=== PATIENT | male | born 1940 | race Caucasian/White ===

== ENCOUNTER → 2017-08-31 09:18 | Outpatient (POV) | payer MEDICARE, SELFPAY ==
[2017-08-31 09:40] VITALS: BP 122/71; PULSE 72; RESP 18; TEMP 36.4; O2SAT 98; BMI 30.4
--- NOTE | 2017-08-31 09:52 | P.CONS_ITS ---
[facility] Pain Management SOAP Note Subjective:: Patient is an extremely pleasant 77-year-old white male who we are treating for pain secondary to degenerative disease of the lumbar spine and lumbar radiculopathy. Patient states his pain is a 1 out of 10 today. He states that his medication decreases his pain 80-90%. Patient is being medically managed on [place] 10 mg 1 tablet 3 times a day. He denies any side effects to his medication. Patient's SILVANO #[id number] reviewed and appropriate. Patient has a UDS pending we will continue to monitor this. ROS General: no recent weight change, no fever, no sleep disturbances Respiratory: no cough, no shortness of air, no recurring pulmonary infections Cardiovascular/Peripheral Vascular: No chest pain, No palpitations, no edema, no shortness of breath. Gastrointestinal: no new onset incontinence, normal bowel movements reported Genitourinary: no new onset incontinence Musculoskeletal: Back pain Psychiatric: normal mood/ affect, Neurological: [denies weakness in extremities], [denies balance issues] Objective:: Physical Exam General: Alert and oriented x3, no acute distress, pleasant and cooperative, [ on room air] Lungs: Resps E/U, Symmetrical chest expansion, Eyes: PERRL Musculoskeletal: Flexion and extension of lumbar spine somewhat guarded secondary to pain, deep tendon reflexes normal, strength in upper and lower extremities [5/5], slightly antalgic gait noted Neurological: speech clear, qa consultant equal, no gross sensory deficits Assessment:: Degenerative disc disease of the lumbar spine with lumbar radiculopathy Plan:: We will refill this patient's [place] 10 mg 1 p.o. 3 times daily and give him 2 prescriptions today. He can follow-up with us in 3 months and we will give him a third month in the interim. Patient's Silvano and urine drug screen both reviewed. Dr. Evasn has reviewed his chart and agrees with this plan of care. Patient has been prescribed a controlled substance after being counseled on the medication, medication safety, and possible side effects. SILVANO report has been obtained and reviewed prior to prescription and found to be appropriate. Opioid contract was reviewed and signed by the patient, and that they have agreed to all of the terms set forth by our compliance program. This note was dictated using voice recognition software may contain errors or omissions
[2017-08-31 12:26] LABS: Amphetamine/Metha Screen,Urine Negative ng/mL (<1000); Barbiturates Screen,Urine Negative ng/mL (<200); Benzodiazepines Screen,Urine Negative ng/mL (200); Cannabinoid Screen,Urine Negative ng/mL (<50); Cocaine Screen,Urine Negative ng/g (<300); Methadone Screen,Urine Negative ng/mL (<300); Opiate Screen,Urine Positive ng/mL (<300); Phencyclidine Screen,Urine Negative ng/mL (<25)
[2017-09-03 20:12] LABS: Codeine Negative (Cutoff=100); Hydrocodone Positive (.); Hydromorphone Positive (.); Morphine Negative (Cutoff=100)
[2017-09-04 18:34] LABS: Opiates Positive (.)
== END ==
PROVIDERS: Family Provider Emergency Medicine; PCP Emergency Medicine; Visit Provider Clinical Nurse Specialist Family Health
DX: M54.16 Radiculopathy, lumbar region (principal)
CPT/HCPCS: 80305; 80361; 80365; 99212; G0480

== ENCOUNTER → 2017-11-08 10:46 | Outpatient (REF) | payer MEDICARE, SELFPAY ==
[2017-11-08 13:26] LABS: Basophils % 0.2 % (0.1-2.0); Eosinophils # 0.1 K/mm3 (0.0-0.4); Hematocrit 39.5 % (42.0-52.0); Hemoglobin 13.3 g/dL (14.1-18.0); Lymphocytes # 0.4 K/mm3 (0.7-4.5); Lymphocytes % 5.1 K/mm3 (10-50); Mean Corpuscular HGB Conc 33.7 g/dL (31.8-35.4); Mean Corpuscular Hemoglobin 29.9 pg (27.0-31.2); Mean Corpuscular Volume 88.7 fl (80-94); Monocytes # 0.5 K/mm3 (0.1-1.0); Neutrophils # 7.2 K/mm3 (1.8-7.8); Neutrophils % 87.6 % (37.0-80.0); Platelet Count 331 K/mm3 (142-424); Red Blood Count 4.45 M/mm3 (4.60-6.20); Red Cell Distribution Width 12.7 % (11.5-17.5); White Blood Count 8.2 K/mm3 (4.8-10.8)
[2017-11-08 13:29] LABS: MANUAL DIFFERENTIAL MANUAL DIFFERENTIAL (MANUAL DIFF)
[2017-11-08 14:29] LABS: Hemoglobin A1C 5.4 % (0.0-7.0)
[2017-11-08 14:31] LABS: Erythrocyte Sedimentation Rate 50 mm/hr (0-20)
[2017-11-08 14:46] LABS: Alanine Aminotransferase 17 U/L (12-78); Albumin Level 3.5 gm/dL (3.4-5.0); Albumin/Globulin Ratio 0.9 (1.1-1.8); Alkaline Phosphatase 125 U/L (46-116); Anion Gap 12.9 mEq/L (5-15); Aspartate Amino Transferase 12 U/L (15-37); Bilirubin,Total 0.5 mg/dL (0.2-1.0); Blood Urea Nitrogen 13 mg/dL (7-18); C-Reactive Protein 7.2 mg/L (0.0-0.9); Calcium 9.5 mg/dL (8.5-10.1); Carbon Dioxide 30 mmol/L (21.0-32.0); Chloride 102 mmol/L (98-107); Chol/HDL Ratio 3.7 (1-3.5); Cholesterol 154 mg/dL (140-200); Creatinine,Serum 0.92 mg/dL (0.70-1.30); Estimated Glomerular Filt Rate 80 ml/min (>60); Free T4 (Free Thyroxine) 1.14 ng/dl (0.76-1.46); GFR (African American) 97 ML/MIN (>60); Globulin 3.7 gm/dl (1.3-3.2); Glucose 123 mg/dL (74-106); HDL Cholesterol 42 mg/dL (27-67); LDL Cholesterol 97 mg/dL (0-130); Potassium 3.9 mmoL/L (3.5-5.1); Sodium 141 mmol/L (136-145); Thyroid Stimulating Hormone 1.09 uIU/ml (0.358-3.740); Total Protein,Serum 7.2 gm/dL (6.4-8.2); Triglycerides 76 mg/dL (30-200); VLDL Cholesterol 15 mg/dL (0-40)
[2017-11-08 15:31] LABS: Eosinophils % 1 % (0-3); Lymphocytes % 6 % (10-50); Monocytes % 5 % (2-9); Neutrophils % 88 % (42-76); Platelet Estimate Normal; RBC Morphology Normal; Total Cells Counted 100
[2017-11-09 15:17] LABS: Vitamin D 25 Hydroxy 18.4 ng/mL (30.0-100.0)
== END ==
LOC: LAB 10:46
PROVIDERS: Visit Provider Nurse Practitioner Family
DX: R53.83 Other fatigue (principal); M10.9 Gout, unspecified; R60.0 Localized edema; Z79.899 Other long term (current) drug therapy
CPT/HCPCS: 80053; 80061; 82652; 83036; 84439; 84443; 85007; 85025; 85651; 86140

== ENCOUNTER → 2017-11-29 09:33 | Outpatient (POV) | payer MEDICARE, SELFPAY ==
[2017-11-29 09:49] VITALS: BP 123/63; PULSE 58; RESP 18; O2SAT 98; BMI 30.4
--- NOTE | 2017-11-29 10:21 | HMH.PAINSOAP ---
[facility] Pain Management SOAP Note Subjective:: Patient is a pleasant 77-year-old white male who presents today for medication refills. Patient is being treated for pain secondary to degenerative disc disease of the lumbar spine and lumbar radiculopathy. Patient states that his pain is a 2 out of 10 today. Patient states that his medication works for him up to 90%. Patient currently on [place] 10 mg 1 tab p.o. 3 times daily. Patient's SILVANO #[id number] reviewed and appropriate. Patient's UDS in the past has been appropriate. Patient denies any side effects to the medication. Patient states most of his pain is in his back and legs. ROS General: no recent weight change, no fever, no sleep disturbances Respiratory: no cough, no shortness of air, no recurring pulmonary infections Cardiovascular/Peripheral Vascular: No chest pain, No palpitations, no edema, no shortness of breath. Gastrointestinal: no incontinence, normal bowel movements reported Genitourinary: no incontinence Musculoskeletal: Back pain Psychiatric: normal mood/ affect Neurological: [denies weakness in extremities], [denies balance issues] Objective:: Physical Exam General: Alert and oriented x3, no acute distress, pleasant and cooperative, [on room air] Lungs: Resps E/U, Symmetrical chest expansion, Eyes: PERRL Musculoskeletal: Flexion and extension of lumbar spine somewhat guarded secondary to pain, deep tendon reflexes normal, strength in upper and lower extremities [5/5], slightly antalgic gait noted Neurological: speech clear, rn chemical dependency equal, no gross sensory deficits Assessment:: Degenerative disc disease of lumbar lumbar radiculopathy Plan:: We will refill the patient's [place] 10 mg 1 p.o. 3 times daily and give him 2 prescriptions today. He can follow-up with us in 3 months. We can give him a third month in the interim. Patient's Silvano and urine drug screen reviewed. Dr. Evans has reviewed this chart and agrees with this plan of care. I will follow-up with him in 3 months. Patient has been prescribed a controlled substance after being counseled on the medication, medication safety, and possible side effects. SILVANO report has been obtained and reviewed prior to prescription and found to be appropriate. Opioid contract was reviewed and signed by the patient, and that they have agreed to all of the terms set forth by our compliance program. This note was dictated using voice recognition software and may contain errors or omissions
--- NOTE | 2017-11-29 10:25 | P.CONS_ITS ---
[facility] Pain Management SOAP Note Subjective:: Patient is a pleasant 77-year-old white male who presents today for medication refills. Patient is being treated for pain secondary to degenerative disc disease of the lumbar spine and lumbar radiculopathy. Patient states that his pain is a 2 out of 10 today. Patient states that his medication works for him up to 90%. Patient currently on [place] 10 mg 1 tab p.o. 3 times daily. Patient' s SILVANO #[id number] reviewed and appropriate. Patient's UDS in the past has been appropriate. Patient denies any side effects to the medication. Patient states most of his pain is in his back and legs. ROS General: no recent weight change, no fever, no sleep disturbances Respiratory: no cough, no shortness of air, no recurring pulmonary infections Cardiovascular/Peripheral Vascular: No chest pain, No palpitations, no edema, no shortness of breath. Gastrointestinal: no incontinence, normal bowel movements reported Genitourinary: no incontinence Musculoskeletal: Back pain Psychiatric: normal mood/ affect Neurological: [denies weakness in extremities], [denies balance issues] Objective:: Physical Exam General: Alert and oriented x3, no acute distress, pleasant and cooperative, [ on room air] Lungs: Resps E/U, Symmetrical chest expansion, Eyes: PERRL Musculoskeletal: Flexion and extension of lumbar spine somewhat guarded secondary to pain, deep tendon reflexes normal, strength in upper and lower extremities [5/5], slightly antalgic gait noted Neurological: speech clear, information clerk equal, no gross sensory deficits Assessment:: Degenerative disc disease of lumbar lumbar radiculopathy Plan:: We will refill the patient's [place] 10 mg 1 p.o. 3 times daily and give him 2 prescriptions today. He can follow-up with us in 3 months. We can give him a third month in the interim. Patient's Silvano and urine drug screen reviewed. Dr. Evans has reviewed this chart and agrees with this plan of care. I will follow-up with him in 3 months. Patient has been prescribed a controlled substance after being counseled on the medication, medication safety, and possible side effects. SILVANO report has been obtained and reviewed prior to prescription and found to be appropriate. Opioid contract was reviewed and signed by the patient, and that they have agreed to all of the terms set forth by our compliance program. This note was dictated using voice recognition software and may contain errors or omissions
== END ==
PROVIDERS: Family Provider Emergency Medicine; PCP Nurse Practitioner Family; Visit Provider Clinical Nurse Specialist Family Health
DX: M54.16 Radiculopathy, lumbar region (principal)
CPT/HCPCS: 99212

== ENCOUNTER → 2018-03-01 11:11 | Outpatient (POV) | payer MEDICARE, SELFPAY ==
[2018-03-01 11:41] VITALS: BP 162/62; PULSE 61; RESP 18; O2SAT 98; BMI 30.4
--- NOTE | 2018-03-01 12:10 | HMH.PAINSOAP ---
[facility] Pain Management SOAP Note Subjective:: Patient is a pleasant 77-year-old white male who presents today for medication refills. Patient is currently being treated for pain secondary to degenerative disc disease of lumbar spine with lumbar radiculopathy. Patient rates his pain a 2 out of 10 today. Patient states that his medication helps him up to 90%. Patient is currently on [place] 10 mg 1 tab p.o. 3 times daily. Patient is not on any arthritis medicine. Patient's SILVANO #[id number] reviewed and appropriate. Patient's drug screen has been appropriate in the past. Patient denies side effects to his medication. ROS General: no recent weight change, no fever, no sleep disturbances Respiratory: no cough, no shortness of air, no recurring pulmonary infections Cardiovascular/Peripheral Vascular: No chest pain, No palpitations, no edema, no shortness of breath. Gastrointestinal: no incontinence, normal bowel movements reported Genitourinary: no incontinence Musculoskeletal: Back pain Psychiatric: normal mood/ affect Neurological: [denies weakness in extremities], [denies balance issues] Objective:: Physical Exam General: Alert and oriented x3, no acute distress, pleasant and cooperative, [on room air] Lungs: Resps E/U, Symmetrical chest expansion, Eyes: PERRL Musculoskeletal: Flexion and extension of lumbar spine somewhat guarded secondary to pain, deep tendon reflexes normal, strength in upper and lower extremities [5/5], slightly antalgic gait noted Neurological: speech clear, pest control service technician equal, no gross sensory deficits Assessment:: degenerative disc disease lumbar spine with lumbar radiculathopy Plan:: We will refill the patient's [place] 10 mg 1 p.o. 3 times daily and give him 2 prescriptions today. We will call in Celebrex 200 mg 1 p.o. daily for the patient. 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 Patient's SILVANO and UDS have been reviewed. Dr. Evans agrees with this plan of care. Patient has been prescribed a controlled substance after being counseled on the medication, medication safety, and possible side effects. SILVANO report has been obtained and reviewed prior to prescription and found to be appropriate. Opioid contract was reviewed and signed by the patient, and that they have agreed to all of the terms set forth by our compliance program. This note was dictated using voice recognition software and may contain errors or omissions
--- NOTE | 2018-03-01 12:17 | P.CONS_ITS ---
[facility] Pain Management SOAP Note Subjective:: Patient is a pleasant 77-year-old white male who presents today for medication refills. Patient is currently being treated for pain secondary to degenerative disc disease of lumbar spine with lumbar radiculopathy. Patient rates his pain a 2 out of 10 today. Patient states that his medication helps him up to 90%. Patient is currently on [place] 10 mg 1 tab p.o. 3 times daily. Patient is not on any arthritis medicine. Patient's SILVANO #[id number] reviewed and appropriate. Patient's drug screen has been appropriate in the past. Patient denies side effects to his medication. ROS General: no recent weight change, no fever, no sleep disturbances Respiratory: no cough, no shortness of air, no recurring pulmonary infections Cardiovascular/Peripheral Vascular: No chest pain, No palpitations, no edema, no shortness of breath. Gastrointestinal: no incontinence, normal bowel movements reported Genitourinary: no incontinence Musculoskeletal: Back pain Psychiatric: normal mood/ affect Neurological: [denies weakness in extremities], [denies balance issues] Objective:: Physical Exam General: Alert and oriented x3, no acute distress, pleasant and cooperative, [on room air] Lungs: Resps E/U, Symmetrical chest expansion, Eyes: PERRL Musculoskeletal: Flexion and extension of lumbar spine somewhat guarded secondary to pain, deep tendon reflexes normal, strength in upper and lower extremities [5/5], slightly antalgic gait noted Neurological: speech clear, streets and buildings decorator equal, no gross sensory deficits Assessment:: degenerative disc disease lumbar spine with lumbar radiculathopy Plan:: We will refill the patient's [place] 10 mg 1 p.o. 3 times daily and give him 2 prescriptions today. We will call in Celebrex 200 mg 1 p.o. daily for the patient. We will follow-up with him in 3 months and he can mushroom picker one prescription in the interim. Patient's SILVANO and UDS have been reviewed. Dr. Evans agrees with this plan of care. Patient has been prescribed a controlled substance after being counseled on the medication, medication safety, and possible side effects. SILVANO report has been obtained and reviewed prior to prescription and found to be appropriate. Opioid contract was reviewed and signed by the patient, and that they have agreed to all of the terms set forth by our compliance program. This note was dictated using voice recognition software and may contain errors or omissions
== END ==
PROVIDERS: Family Provider Emergency Medicine; PCP Nurse Practitioner Family; Visit Provider Clinical Nurse Specialist Family Health
DX: M51.16 Intervertebral disc disorders with radiculopathy, lumbar region (principal)
CPT/HCPCS: 99213

== ENCOUNTER → 2018-05-02 12:43 | Outpatient (CLI) | payer MEDICARE, SELFPAY ==
[2018-05-02 14:37] LABS: Amphetamine/Metha Screen,Urine Negative ng/mL (<1000); Barbiturates Screen,Urine Negative ng/mL (<200); Benzodiazepines Screen,Urine Negative ng/mL (<200); Cannabinoid Screen,Urine Negative ng/mL (<50); Cocaine Screen,Urine Negative ng/mL (<300); Methadone Screen,Urine Negative ng/mL (<300); Opiate Screen,Urine Positive ng/mL (<300); Phencyclidine Screen,Urine Negative ng/mL (<25)
[2018-05-06 18:10] LABS: Codeine Negative (Cutoff=100); Hydrocodone Positive (.); Hydromorphone Positive (.); Morphine Negative (Cutoff=100)
[2018-05-07 12:13] LABS: Opiates Positive (.)
== END ==
PROVIDERS: Visit Provider Clinical Nurse Specialist Family Health
DX: Z79.899 Other long term (current) drug therapy (principal)
CPT/HCPCS: 80305; 80361; 80365; G0480

== ENCOUNTER → 2018-05-23 09:45 | Outpatient (POV) | payer MEDICARE, SELFPAY ==
[2018-05-23 09:54] VITALS: BP 131/55; PULSE 63; RESP 18; O2SAT 98; BMI 30.4
--- NOTE | 2018-05-23 09:54 | P.CONS_ITS ---
[facility] Pain Management SOAP Note Subjective:: Patient is a pleasant 77-year-old white male who presents today for medication refills. Patient is currently being treated for pain secondary to degenerative disc disease lumbar spine with lumbar radiculopathy. Patient's baseline pain is 2 out of 10 and states that that is what he is today. Patient states his medication help to 90%. He is currently on [place] 10 mg 1 p.o. 3 times daily. Patient denies any side effects. Patient's SILVANO #[id number] reviewed and appropriate. Patient's history has been appropriate in the past. ROS General: no recent weight change, no fever, no sleep disturbances Respiratory: no cough, no shortness of air, no recurring pulmonary infections Cardiovascular/Peripheral Vascular: No chest pain, No palpitations, no edema, no shortness of breath. Gastrointestinal: no incontinence, normal bowel movements reported Genitourinary: no incontinence Musculoskeletal: Back pain leg pain Psychiatric: normal mood/ affect Neurological: [denies weakness in extremities], [denies balance issues] Objective:: Physical Exam General: Alert and oriented x3, no acute distress, pleasant and cooperative, [on room air] Lungs: Resps E/U, Symmetrical chest expansion, Eyes: PERRL Musculoskeletal: Flexion and extension of lumbar spine somewhat guarded secondary to pain, deep tendon reflexes normal, strength in upper and lower extremities [5/5], slightly antalgic gait noted Neurological: speech clear, director funds development equal, no gross sensory deficits Assessment:: Degenerative disc disease lumbar spine with lumbar radiculopathy Plan:: We will refill the patient's [place] 10 mg 1 p.o. 3 times daily and give him 2 months worth of prescriptions. We will continue on his Celebrex 200 mg 1 p.o. daily. Patient will follow-up in 3 months. 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 Dr. Evans is reviewed this chart and agrees with this plan of care. Patient has been prescribed a controlled substance after being counseled on the medication, medication safety, and possible side effects. SILVANO report has been obtained and reviewed prior to prescription and found to be appropriate. Opioid contract was reviewed and signed by the patient, and that they have agreed to all of the terms set forth by our compliance program. This note was dictated using voice recognition software and may contain errors or omissions
== END ==
PROVIDERS: PCP Emergency Medicine; Visit Provider Clinical Nurse Specialist Family Health
DX: M51.16 Intervertebral disc disorders with radiculopathy, lumbar region (principal)
CPT/HCPCS: 99213

== ENCOUNTER → 2018-08-19 09:53 | Outpatient (CLI) | payer MEDICARE, SELFPAY ==
--- NOTE | 2018-08-19 09:57 | CA_ITS ---
PROCEDURE: 2-D M-mode and color Doppler study INDICATIONS FOR THE TEST: Chest pain COPD Heart Murmur+ Tobacco Smoking Palpitations Fatigue Syncope Edema Hypertension+Diabetes Mellitus Rheumatic Fever SOB CROW Obesity Hyperlipidemia Family History HD Additional History MR, ABN EKG PATIENT INFORMATION HEIGHT: 68 WEIGHT:189 GENDER: Male B/P:117/51 2-D/M-MODE INTERPRETATION: 2-D MEASUREMENTS OBSERVED VALUES IN CMS Right Ventricular Dimension (RVDd) 2.9 Interventricular Septum (Thickness)(IVsd) 1.8 Left Ventricular Internal Dimensions(LVIDd) 4.3 Left Ventricular Posterior Wall (Thickness)(LVPWd) 1.0 Aortic Root 3.6 Aortic Cusp Separation 1.3 Left Atrial Dimensions (LAD) 4.1 2D 1. Left atrium is moderately enlarged, left ventricle is normal size, mild concentric left ventricular hypertrophy, visually estimated ejection fraction 55% with no regional wall motion abnormality. 2. The right atrium and right ventricle are mildly enlarged with normal contractility. 3. The aortic valve is thickened and calcified with moderate reduction in the leaflet mobility. 4. The mitral valve leaflets are not well visualized, there appears to be prolapse of the posterior mitral leaflet. 5. The tricuspid valve is grossly normal. 6. No significant pericardial effusion noted. DOPPLER INTERROGATION: 1. The maximum aortic out flow velocity contrast study 3 m/s, resulting in a mean gradient across aortic valve of 18 mmHg, this represents mild aortic stenosis, aortic valve area is not accurately calculated, morphologically there is moderate aortic stenosis. There is no significant aortic insufficiency seen. 2. The mitral inflow velocities within normal range, there is no mitral stenosis, there is mitral regurgitation present which is difficult to quantify, this is likely in severe range, a transesophageal echocardiogram is recommended for further evaluation. 3. There is mild tricuspid regurgitation noted, calculated right ventricular systolic pressure is 54 mmHg consistent with moderate pulmonary hypertension, grade 1 diastolic dysfunction seen with tissue Doppler evidence of raised left atrial pressure. CONCLUSION: 1. Moderately enlarged left atrium, normal left ventricular size, mild concentric left ventricular hypertrophy, visually estimated ejection fraction of 55% with no regional wall motion abnormality, grade 1 diastolic dysfunction seen with tissue Doppler evidence of raised left atrial pressure. 2. Thickened and calcified aortic valve, morphologically there is moderate aortic stenosi
--- NOTE | 2018-08-19 09:57 | CI_ITS ---
Cerebrovascular Exam Indications: 785.9 Bruit. IMPRESSIONS 1. Theleft vertebral arteryis patent with normal antegrade flow. Right vertebral artery not visualized. 2. Study suggests 20-49% stenosis involving the left internal carotid artery. 3. Study suggests 20-49% stenosis involving the right internal carotid artery. History: Risk factors: Hypertension. Carotid duplex study. Complete study and Doppler flow study including spectral analysis, color and robertson scale imaging. Height: Height: 172.7cm. Height: 68in. Weight: Weight: 83.9kg. Weight: 184.6lb. Body mass index: BMI: 28.1kg/m^2. Body surface area: BSA: 2.03m^2. Tables: Arterial flow: + +--------+--------+ Location V sys V ed + +--------+--------+ Right CCA - proximal 111cm/s 13.4cm/s + +--------+--------+ Right CCA - distal 87.2cm/s 15.7cm/s + +--------+--------+ Right ECA 123cm/s 7.9cm/s + +--------+--------+ Right ICA - proximal 66cm/s 11.8cm/s + +--------+--------+ Right ICA - mid 98.2cm/s 22.8cm/s + +--------+--------+ Right ICA - distal 115cm/s 33cm/s + +--------+--------+ Left CCA - proximal 115cm/s 17.7cm/s + +--------+--------+ Left CCA - distal 87.4cm/s 17.7cm/s + +--------+--------+ Left ECA 121cm/s 10.8cm/s + +--------+--------+ Left ICA - proximal 77.6cm/s 14.7cm/s + +--------+--------+ Left ICA - mid 139cm/s 31.4cm/s + +--------+--------+ Left ICA - distal 137cm/s 29.5cm/s + +--------+--------+ Left vertebral 94.3cm/s 16.7cm/s + +--------+--------+ Velocity ratios: + + + + + + Right, V sys Right, V ed Left, V sys Left, V ed + + + + + + Max ICA/dist CCA 1.32 2.1 1.59 1.77 + + + + + + (Report amended ) Electronically signed by: Praveen Craig [id number]
== END ==
PROVIDERS: PCP Emergency Medicine; Visit Provider Internal Medicine Cardiovascular Disease
DX: I34.0 Nonrheumatic mitral (valve) insufficiency (principal); I11.9 Hypertensive heart disease without heart failure; I35.8 Other nonrheumatic aortic valve disorders; R09.89 Other specified symptoms and signs involving the circulatory and respiratory systems; R94.31 Abnormal electrocardiogram [ECG] [EKG]
CPT/HCPCS: 93306; 93880

== ENCOUNTER → 2018-08-19 10:59 | Outpatient (CLI) | payer MEDICARE, SELFPAY ==
[2018-08-19 11:51] LABS: Alanine Aminotransferase 19 U/L (12-78); Albumin Level 3.6 gm/dL (3.4-5.0); Alkaline Phosphatase 113 U/L (46-116); Aspartate Amino Transferase 9 U/L (15-37); Bilirubin,Direct 0.1 mg/dL (0.0-0.2); Bilirubin,Indirect 0.4 mg/dL (0.0-0.9); Bilirubin,Total 0.5 mg/dL (0.2-1.0); Chol/HDL Ratio 3.7 (1-3.5); Cholesterol 159 mg/dL (140-200); HDL Cholesterol 43 mg/dL (27-67); LDL Cholesterol 97 mg/dL (0-130); Total Protein,Serum 7.2 gm/dL (6.4-8.2); Triglycerides 93 mg/dL (30-200); VLDL Cholesterol 19 mg/dL (0-40)
== END ==
PROVIDERS: Visit Provider Internal Medicine Cardiovascular Disease
DX: I11.9 Hypertensive heart disease without heart failure (principal); I34.0 Nonrheumatic mitral (valve) insufficiency; I35.8 Other nonrheumatic aortic valve disorders; R94.31 Abnormal electrocardiogram [ECG] [EKG]; R09.89 Other specified symptoms and signs involving the circulatory and respiratory systems; I65.23 Occlusion and stenosis of bilateral carotid arteries
CPT/HCPCS: 36415; 80061; 80076; 93306; 93880

== ENCOUNTER → 2018-08-23 10:41 | Outpatient (POV) | payer MEDICARE, SELFPAY ==
[2018-08-23 11:32] VITALS: BP 182/62; PULSE 55; RESP 18; O2SAT 98; BMI 28.1
--- NOTE | 2018-08-23 12:28 | HMH.PAINSOAP ---
[facility] Pain Management SOAP Note Subjective:: Patient is a 78-year-old white male who presents today for medication refills. He is currently being treated for pain secondary to degenerative disc disease lumbar spine with lumbar radiculopathy. His pain today is a 3 out of 10 however he states when he takes his medication is 0. Patient states the medication helps up to 90%. He is currently on [place] 10 mg 1 p.o. 3 times daily. He denies any side effects. Silvano reviewed and appropriate.\ ROS General: no recent weight change, no fever, no sleep disturbances Respiratory: no cough, no shortness of air, no recurring pulmonary infections Cardiovascular/Peripheral Vascular: No chest pain, No palpitations, no edema, no shortness of breath. Gastrointestinal: no incontinence, normal bowel movements reported Genitourinary: no incontinence Musculoskeletal: Back pain, leg pain Psychiatric: normal mood/ affect Neurological: [denies weakness in extremities], [denies balance issues] Objective:: Physical Exam General: Alert and oriented x3, no acute distress, pleasant and cooperative, [on room air] Lungs: Resps E/U, Symmetrical chest expansion, Eyes: PERRL Musculoskeletal: Flexion and extension of lumbar spine somewhat guarded secondary to pain, deep tendon reflexes normal, strength in upper and lower extremities [5/5], [abnormal gait noted] Neurological: speech clear, bilingual elementary school teacher equal, no gross sensory deficits Assessment:: Degenerative disc disease lumbar spine with lumbar radiculopathy Plan:: We will refill the patient's [place] 10 mg 1 p.o. 3 times daily and give him 2 months worth of medication. He is can continue his Celebrex 200 mg 1 p.o. daily. 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 Patient has been prescribed a controlled substance after being counseled on the medication, medication safety, and possible side effects. SILVANO report has been obtained and reviewed prior to prescription and found to be appropriate. Opioid contract was reviewed and signed by the patient, and that they have agreed to all of the terms set forth by our compliance program. Dr. Evans has reviewed this note and agrees with this plan of care. This note was dictated using voice recognition software and may contain errors or omissions
[2018-08-23 14:02] LABS: Amphetamine/Metha Screen,Urine Negative ng/mL (<1000); Barbiturates Screen,Urine Negative ng/mL (<200); Benzodiazepines Screen,Urine Negative ng/mL (<200); Cannabinoid Screen,Urine Negative ng/mL (<50); Cocaine Screen,Urine Negative ng/mL (<300); Methadone Screen,Urine Negative ng/mL (<300); Opiate Screen,Urine Positive ng/mL (<300); Phencyclidine Screen,Urine Negative ng/mL (<25)
[2018-08-31 12:25] LABS: Codeine Negative (Cutoff=100); Hydrocodone Positive (.); Hydromorphone Positive (.); Morphine Negative (Cutoff=100)
[2018-08-31 14:36] LABS: Opiates Positive (.)
== END ==
PROVIDERS: PCP Emergency Medicine; Visit Provider Clinical Nurse Specialist Family Health
DX: M51.16 Intervertebral disc disorders with radiculopathy, lumbar region (principal); Z79.899 Other long term (current) drug therapy
CPT/HCPCS: 80305; 80361; 80365; 99213; G0480

== ENCOUNTER → 2018-11-22 09:14 | Outpatient (POV) | payer MEDICARE, SELFPAY ==
[2018-11-22 09:27] VITALS: BP 142/58; PULSE 62; RESP 18; O2SAT 97; BMI 27.5
--- NOTE | 2018-11-22 09:45 | HMH.PAINSOAP ---
[facility] Pain Management SOAP Note Subjective:: Patient is a pleasant 78-year-old white male who presents today for medication refills. Patient is currently on [place] 10 mg 1 p.o. 3 times daily. Patient states it is not helping like it used to. He rates his pain a 6 out of 10. He states that it is increasing. Patient is interested in potential intrathecal therapy. I do believe that would be beneficial for him. Patient is tried and failed multiple modalities of treatment including physical therapy, anti-inflammatories, medications, injection therapy. Patient is continuing a home stretching program. Patient has had pain for over 2 years and has failed conservative treatment during this time. Patient is continuing on anti-inflammatories. Patient understands that he has to come off of his narcotics prior to intrathecal pain pump trial and implantation. Patient is interested in pursuing this. Most of his pain is in his back and bilateral legs. ROS General: no recent weight change, no fever, no sleep disturbances Respiratory: no cough, no shortness of air, no recurring pulmonary infections Cardiovascular/Peripheral Vascular: No chest pain, No palpitations, no edema, no shortness of breath. Gastrointestinal: no incontinence, normal bowel movements reported Genitourinary: no incontinence Musculoskeletal: Back pain, leg pain Psychiatric: normal mood/ affect Neurological: [denies weakness in extremities], [denies balance issues] Objective:: Physical Exam General: Alert and oriented x3, no acute distress, pleasant and cooperative, [on room air] Lungs: Resps E/U, Symmetrical chest expansion, Eyes: PERRL Musculoskeletal: Flexion and extension of lumbar spine somewhat guarded secondary to pain, deep tendon reflexes normal, strength in upper and lower extremities [5/5], [abnormal gait noted] Neurological: speech clear, laster hand equal, no gross sensory deficits Assessment:: Degenerative disc disease lumbar spine with lumbar radiculopathy, ankylosing spondylosis Plan:: We will plan an intrathecal pain pump trial for the patient. We will get a psychological evaluation to help determine if he is a good candidate. He understands he has to be off of his [place] 48 hours prior to the intrathecal pain pump trial. Patient is continuing his home stretching program. He is not on any anticoagulation. He is not on any antibiotics. Patient has failed other conservative measures. We will refill his [place] 10 mg 1 p.o. 3 times daily and give him 1 month worth of medication. We will hopefully have his trial prior to his running out of this medication. Patient has been prescribed a controlled substance after being counseled on the medication, medication safety, and possible side effects. SILVANO report has been obtained and reviewed prior to prescription and found to be appropriate. Opioid contract was reviewed and signed by the patient, and that they have agreed to all of the terms set forth by our compliance program. Dr. Evans has reviewed this note and agrees with this plan of care. This note was dictated using voice recognition software and may contain errors or omissions
--- NOTE | 2018-11-22 09:49 | P.CONS_ITS ---
[facility] Pain Management SOAP Note Subjective:: Patient is a pleasant 78-year-old white male who presents today for medication refills. Patient is currently on [place] 10 mg 1 p.o. 3 times daily. Patient states it is not helping like it used to. He rates his pain a 6 out of 10. He states that it is increasing. Patient is interested in potential intrathecal therapy. I do believe that would be beneficial for him. Patient is tried and failed multiple modalities of treatment including physical therapy, anti- inflammatories, medications, injection therapy. Patient is continuing a home stretching program. Patient has had pain for over 2 years and has failed conservative treatment during this time. Patient is continuing on anti-inflammatories. Patient understands that he has to come off of his narcotics prior to intrathecal pain pump trial and implantation. Patient is interested in pursuing this. Most of his pain is in his back and bilateral legs. ROS General: no recent weight change, no fever, no sleep disturbances Respiratory: no cough, no shortness of air, no recurring pulmonary infections Cardiovascular/Peripheral Vascular: No chest pain, No palpitations, no edema, no shortness of breath. Gastrointestinal: no incontinence, normal bowel movements reported Genitourinary: no incontinence Musculoskeletal: Back pain, leg pain Psychiatric: normal mood/ affect Neurological: [denies weakness in extremities], [denies balance issues] Objective:: Physical Exam General: Alert and oriented x3, no acute distress, pleasant and cooperative, [on room air] Lungs: Resps E/U, Symmetrical chest expansion, Eyes: PERRL Musculoskeletal: Flexion and extension of lumbar spine somewhat guarded sec ondary to pain, deep tendon reflexes normal, strength in upper and lower extremities [5/5], [abnormal gait noted] Neurological: speech clear, perennial house manager equal, no gross sensory deficits Assessment:: Degenerative disc disease lumbar spine with lumbar radiculopathy, ankylosing spondylosis Plan:: We will plan an intrathecal pain pump trial for the patient. We will get a psychological evaluation to help determine if he is a good candidate. He understands he has to be off of his [place] 48 hours prior to the intrathecal pain pump trial. Patient is continuing his home stretching program. He is not on any anticoagulation. He is not on any antibiotics. Patient has failed other conservative measures. We will refill his [place] 10 mg 1 p.o. 3 times daily and give him 1 month worth of medication. We will hopefully have his trial prior to his running out of this medication. Patient has been prescribed a controlled substance after being counseled on the medication, medication safety, and possible side effects. SILVANO report has been obtained and reviewed prior to prescription and found to be appropriate. Opioid contract was reviewed and signed by the patient, and that they have agreed to all of the terms set forth by our compliance program. Dr. Evans has reviewed this note and agrees with this plan of care. This note was dictated using voice recognition software and may contain errors or omissions
== END ==
PROVIDERS: PCP Emergency Medicine; Visit Provider Clinical Nurse Specialist Family Health
DX: M51.16 Intervertebral disc disorders with radiculopathy, lumbar region (principal); M45.6 Ankylosing spondylitis lumbar region
CPT/HCPCS: 99212

== ENCOUNTER → 2018-12-26 11:18 | Outpatient (POV) | payer MEDICARE, SELFPAY ==
[2018-12-26 11:27] VITALS: BP 150/62; PULSE 64; RESP 18; O2SAT 98; BMI 27.3
--- NOTE | 2018-12-26 12:03 | HMH.PAINSOAP ---
[facility] Pain Management SOAP Note Subjective:: Patient is a pleasant 78-year-old white male who presents today for follow-up after psychological evaluation. The patient is interested in intrathecal pain pump insertion. The patient has been taking [place] 10 mg 1 p.o. 3 times daily. His Silvano #[id number] has been reviewed and is appropriate. The patient says he has been taking oral medications for about 7 years and does not want to continue with this type of treatment due to side effects constipation and head fog with oral medications . He has tried physical therapy, anti-inflammatories, and injection therapy in the past. The patient has had over 2 years of conservative treatments with no relief. He rates his pain an 8 out of 10 today. He would like to proceed with the intrathecal pain pump. Review of Systems General: No recent weight changes, no fever, no sleep disturbances Respiratory: No cough, no shortness of air, no recurring pulmonary infections Cardiovascular/peripheral vascular: No chest pain, no palpitations, no edema, no shortness of breath Gastrointestinal: No new onset incontinence, normal bowel movements reported Genitourinary: No new onset incontinence Musculoskeletal: Back pain Psychiatric: Normal mood/affect Neurological: [Denies weakness in extremities], [denies balance issues] Objective:: Physical exam General: Alert and oriented x3, no acute distress, pleasant and cooperative, [on room air] Lungs: Respirations even and unlabored, symmetrical chest expansion Eyes: PERRL Musculoskeletal: Flexion and extension of lumbar spine somewhat guarded secondary to pain, deep tendon reflexes normal, strength in upper and lower extremities [5/5], antalgic gait noted Neurological: Speech clear, senior online marketing manager equal, no gross sensory deficit Assessment:: Degenerative disc disease lumbar spine with lumbar radiculopathy, ankylosing spondylosis Plan:: The patient did have some questions concerning the intrathecal pain pump today we did have a thorough discussion any concerns he had. We also had a thorough discussion on the patient's alcohol use. Per patient report he drinks approximately 2-3 beers daily . Patient was educated on the risks of pain medication management with alcohol use. The patient understands that he will need to stop alcohol use. The patient is in agreement. We will proceed with the intrathecal pain pump trial. The patient is not on any anticoagulation therapy. He is continuing a home stretching program and NSAIDs. We will refill the patient's [place] 10 mg 1 p.o. 3 times daily, and the patient understands he will need to stop [place] 2 days prior to his procedure. We will schedule the patient for follow-up after his trial and reassess his symptoms at that time. He is been instructed to call the office if he has any concerns prior to his next appointment. Patient has been prescribed a controlled substance after being counseled on the medication, medication safety, and possible side effects. SILVANO report has been obtained and reviewed prior to prescription and found to be appropriate. Opioid contract was reviewed and signed by the patient, and that they have agreed to all of the terms set forth by our compliance program. Dr. Evans has reviewed this note and agrees with this plan of care. This note was dictated using voice recognition software and make contain errors or omissions.
--- NOTE | 2018-12-26 12:06 | P.CONS_ITS ---
[facility] Pain Management SOAP Note Subjective:: Patient is a pleasant 78-year-old white male who presents today for follow-up after psychological evaluation. The patient is interested in intrathecal pain pump insertion. The patient has been taking [place] 10 mg 1 p.o. 3 times daily. His Silvano #[id number] has been reviewed and is appropriate. The patient says he has been taking oral medications for about 7 years and does not want to continue with this type of treatment due to side effects constipation and head fog with oral medications . He has tried physical therapy, anti-inflammatories, and injection therapy in the past. The patient has had over 2 years of conservative treatments with no relief. He rates his pain an 8 out of 10 today. He would like to proceed with the intrathecal pain pump. Review of Systems General: No recent weight changes, no fever, no sleep disturbances Respiratory: No cough, no shortness of air, no recurring pulmonary infections Cardiovascular/peripheral vascular: No chest pain, no palpitations, no edema, no shortness of breath Gastrointestinal: No new onset incontinence, normal bowel movements reported Genitourinary: No new onset incontinence Musculoskeletal: Back pain Psychiatric: Normal mood/affect Neurological: [Denies weakness in extremities], [denies balance issues] Objective:: Physical exam General: Alert and oriented x3, no acute distress, pleasant and cooperative, [on room air] Lungs: Respirations even and unlabored, symmetrical chest expansion Eyes: PERRL Musculoskeletal: Flexion and extension of lumbar spine somewhat guarded secondary to pain, deep tendon reflexes normal, strength in upper and lower extremities [5/5], antalgic gait noted Neurological: Speech clear, mineral surveyor equal, no gross sensory deficit Assessment:: Degenerative disc disease lumbar spine with lumbar radiculopathy, ankylosing spondylosis Plan:: The patient did have some questions concerning the intrathecal pain pump today we did have a thorough discussion any concerns he had. We also had a thorough discussion on the patient's alcohol use. Per patient report he drinks approximately 2-3 beers daily . Patient was educated on the risks of pain medication management with alcohol use. The patient understands that he will need to stop alcohol use. The patient is in agreement. We will proceed with the intrathecal pain pump trial. The patient is not on any anticoagulation therapy. He is continuing a home stretching program and NSAIDs. We will refill the patient's [place] 10 mg 1 p.o. 3 times daily, and the patient understands he will need to stop [place] 2 days prior to his procedure. We will schedule the p atient for follow-up after his trial and reassess his symptoms at that time. He is been instructed to call the office if he has any concerns prior to his next appointment. Patient has been prescribed a controlled substance after being counseled on the medication, medication safety, and possible side effects. SILVANO report has been obtained and reviewed prior to prescription and found to be appropriate. Opioid contract was reviewed and signed by the patient, and that they have agreed to all of the terms set forth by our compliance program. Dr. Evans has reviewed this note and agrees with this plan of care. This note was dictated using voice recognition software and make contain errors or omissions.
== END ==
PROVIDERS: PCP Emergency Medicine; Visit Provider Clinical Nurse Specialist Family Health
DX: M51.16 Intervertebral disc disorders with radiculopathy, lumbar region (principal)
CPT/HCPCS: 99212

== ENCOUNTER → 2019-01-09 14:40 | Outpatient (CLI) | payer MEDICARE, SELFPAY ==
[2019-01-09 15:47] LABS: Alanine Aminotransferase 21 U/L (12-78); Albumin Level 3.4 gm/dL (3.4-5.0); Albumin/Globulin Ratio 0.9 (1.1-1.8); Alkaline Phosphatase 114 U/L (46-116); Anion Gap 12.5 mEq/L (5-15); Aspartate Amino Transferase 15 U/L (15-37); Bilirubin,Total 0.3 mg/dL (0.2-1.0); Blood Urea Nitrogen 36 mg/dL (7-18); Calcium 8.8 mg/dL (8.5-10.1); Carbon Dioxide 26 mmol/L (21.0-32.0); Chloride 101 mmol/L (98-107); Creatinine,Serum 1.55 mg/dL (0.70-1.30); Estimated Glomerular Filt Rate 44 ml/min (>60); GFR (African American) 53 ML/MIN (>60); Glucose 107 mg/dL (74-106); Potassium 4.5 mmoL/L (3.5-5.1); Sodium 135 mmol/L (136-145); Total Protein,Serum 7.4 gm/dL (6.4-8.2)
[2019-01-09 16:21] LABS: Basophils % 0.4 % (0.1-2.0); Eosinophils # 0.2 K/mm3 (0.0-0.4); Eosinophils % 2.5 % (0.1-12.0); Hematocrit 29.8 % (42.0-52.0); Hemoglobin 8.8 g/dL (14.1-18.0); Lymphocytes # 0.8 K/mm3 (0.7-4.5); Mean Corpuscular HGB Conc 29.5 g/dL (31.8-35.4); Mean Corpuscular Hemoglobin 25.1 pg (27.0-31.2); Mean Corpuscular Volume 85.2 fl (80-94); Mean Platelet Volume 6.5 fl (7.4-10.4); Monocytes # 0.5 K/mm3 (0.1-1.0); Monocytes % 7.7 % (1.7-9.3); Neutrophils # 4.7 K/mm3 (1.8-7.8); Neutrophils % 76.4 % (37.0-80.0); Platelet Count 429 K/mm3 (142-424); Red Blood Count 3.49 M/mm3 (4.60-6.20); Red Cell Distribution Width 14.6 % (11.5-17.5); White Blood Count 6.1 K/mm3 (4.8-10.8)
[2019-01-13 07:09] LABS: Chlordiazepoxide None Detected ug/mL (0.1-0.9)
[2019-01-13 10:31] LABS: Acetone Negative % (0.000-0.010); Butalbital None Detected ug/mL (1-10); Diazepam None Detected ug/mL (0.1-0.9); Ethanol Negative % (0.000-0.010); Isopropanol Negative % (0.000-0.010); Pentobarbital None Detected ug/mL (1-5)
== END ==
PROVIDERS: Visit Provider Anesthesiology
DX: Z79.899 Other long term (current) drug therapy (principal)
CPT/HCPCS: 36415; 80053; 80306; 85025

== ENCOUNTER → 2019-01-17 10:26 | Outpatient (POV) | payer MEDICARE, SELFPAY ==
--- NOTE | 2019-01-17 10:47 | P.PCN_ITS ---
- Procedure Date: 01/17/19 Time: 10:46 Anesthesiologist:: Azalia Newton APRN Complications:: None Pre-procedure Diagnosis:: Degenerative disc disease lumbar spine with lumbar radiculopathy symptoms Post-procedure Diagnosis:: Same Indications for Procedure:: Patient is a pleasant 78-year-old white male who presents today for follow-up after intrathecal pain pump placement. The patient's dose is morphine 0.25 mg/day. The patient rates his pain a 5 out of 10. He says that he is having increased difficulty with sleeping secondary to pain in his back. He feels like the wound VAC has been his most problematic area. He says that his pain is still in the spine . He would like an increase in his medicine today. Patient is also complaining of constipation. He has had problems with this prior to the intrathecal pain pump. He has tried multiple modalities such as lactulose, Linzess, and [id number] medications. He has had no relief. We will call the patient and some Movantik 25 mg 1 p.o. daily. We will also increase the patient's morphine dose today as well. Patient's wound VAC was also removed today incision looks well approximated, with no infection noted. Patient sutures are intact. Physical exam General: Alert and oriented x3, no acute distress, pleasant and cooperative, [on room air] Lungs: Respirations even and unlabored, symmetrical chest expansion Eyes: PERRL Musculoskeletal: Flexion and extension of lumbar spine somewhat guarded secondary to pain, deep tendon reflexes normal, strength in upper and lower extremities [5/5], [abnormal gait noted] Neurological: Speech clear, commodity director equal, no gross sensory deficit Procedure Details:: Informed consent was obtained and the risk and benefits of the procedure were explained to the patient. Patient was taken to the procedure room where noninvasive monitoring was placed including noninvasive blood pressure cuff and pulse oximeter. Patient's pump was interrogated and was reprogrammed to 0.325 mg/day. The patient tolerated the procedure well with no complications. Plan and Disposition:: We will see the patient back in 2 weeks to remove his sutures and reassess his symptoms at that time. Patient will start Movantik 25 mg 1 p.o. daily. He has been instructed to call the office if he has any concerns prior to his next appointment. Dr. Evans has reviewed this note and agrees with this plan of care. This note was dictated using voice recognition software and make contain errors or omissions.
[2019-01-17 12:03] VITALS: BP 138/54; PULSE 60; RESP 18; O2SAT 98; BMI 25.4
== END ==
PROVIDERS: PCP Emergency Medicine; Visit Provider Clinical Nurse Specialist Family Health
DX: M51.16 Intervertebral disc disorders with radiculopathy, lumbar region (principal)
CPT/HCPCS: 62368

== ENCOUNTER → 2019-01-30 14:48 | Outpatient (POV) | payer MEDICARE, SELFPAY ==
[2019-01-30 15:11] VITALS: BP 132/52; PULSE 82; RESP 18; O2SAT 99; BMI 25.4
--- NOTE | 2019-01-30 15:33 | P.PCN_ITS ---
- Procedure Date: 01/30/19 Time: 15:30 Anesthesiologist:: Shakila Last APRN Complications:: None Pre-procedure Diagnosis:: Degenerative disc disease lumbar spine with lumbar radiculopathy Post-procedure Diagnosis:: Same Indications for Procedure:: She is a pleasant 78-year-old white male who presents for intrathecal pain pump adjustment. Overall doing well he denies side effects. Patient has lost weight secondary to cutting out drinking along with decreasing his oral regimen of pills. He denies any pain today. He states his only pain is when he has increased activity. We will set his PTC up today. He is currently on a morphine infusion of 0.325 mg/day. Physical Exam General: Alert and oriented x3, no acute distress, pleasant and cooperative, [on room air] Lungs: Resps E/U, Symmetrical chest expansion, Eyes: PERRL Musculoskeletal: Flexion and extension of lumbar spine somewhat guarded secondary to pain, deep tendon reflexes normal, strength in upper and lower extremities [5/5], [abnormal gait noted] Neurological: speech clear, dietary server equal, no gross sensory deficits Procedure Details:: Informed consent was obtained and the risk and benefits of the procedure were explained to the patient. The patient was taken to the procedure room where noninvasive monitoring was placed including noninvasive blood pressure cuff and pulse oximeter. Patient's pump was interrogated and reprogrammed. The infusion rate was was left at 0.325 mg a day of morphine and the PTC was set up at 0.03 mg every 6 hours as needed. The patient tolerated the procedure well. Plan and Disposition:: See the patient back in 1 month reassess his symptoms at that time he is been instructed to call the office if he has any issues prior to his next appointment. Dr. Evans has reviewed this note and agrees with this plan of care. This note was dictated using voice recognition software and may contain errors or omissions
== END ==
PROVIDERS: PCP Emergency Medicine; Visit Provider Clinical Nurse Specialist Family Health
DX: M51.16 Intervertebral disc disorders with radiculopathy, lumbar region (principal)
CPT/HCPCS: 62368

== ENCOUNTER → 2019-02-06 12:38 | Outpatient (CLI) | payer MEDICARE, SELFPAY ==
[2019-02-06 13:19] LABS: Basophils % 0.2 % (0.1-2.0); Eosinophils # 0.1 K/mm3 (0.0-0.4); Eosinophils % 1.4 % (0.1-12.0); Hematocrit 30.5 % (42.0-52.0); Hemoglobin 9.4 g/dL (14.1-18.0); Lymphocytes # 0.7 K/mm3 (0.7-4.5); Lymphocytes % 8.1 % (10-50); Mean Platelet Volume 6.7 fl (7.4-10.4); Monocytes # 0.7 K/mm3 (0.1-1.0); Monocytes % 7.5 % (1.7-9.3); Neutrophils # 7.5 K/mm3 (1.8-7.8); Neutrophils % 82.9 % (37.0-80.0); Platelet Count 393 K/mm3 (142-424); Red Blood Count 3.63 M/mm3 (4.60-6.20); Red Cell Distribution Width 15.3 % (11.5-17.5); White Blood Count 9.1 K/mm3 (4.8-10.8)
[2019-02-06 14:16] LABS: Anion Gap 12.1 mEq/L (5-15); Blood Urea Nitrogen 30 mg/dL (7-18); Calcium 9.2 mg/dL (8.5-10.1); Carbon Dioxide 30 mmol/L (21.0-32.0); Chloride 103 mmol/L (98-107); Creatinine,Serum 1.36 mg/dL (0.70-1.30); Estimated Glomerular Filt Rate 51 ml/min (>60); GFR (African American) 62 ML/MIN (>60); Glucose 100 mg/dL (74-106); Potassium 4.1 mmoL/L (3.5-5.1); Sodium 141 mmol/L (136-145)
== END ==
PROVIDERS: Visit Provider Surgery
DX: R09.89 Other specified symptoms and signs involving the circulatory and respiratory systems (principal); Z12.11 Encounter for screening for malignant neoplasm of colon
CPT/HCPCS: 36415; 80048; 85025

== ENCOUNTER → 2019-02-21 14:22 | Outpatient (CLI) | payer MEDICARE, SELFPAY ==
--- NOTE | 2019-02-21 14:30 | CT_ITS ---
PROCEDURE: CT ABDOMEN PELVIS W CON CLINICAL HISTORY: RECTAL CANCER Recurrent rectal cancer, rectal mass COMPARISON: ABDPELW/O CT ABD PELVIS W/O CONTRAST from 11/20/2016 TECHNIQUE: 75 mL Optiray 350 IV performed in conjunction with the chest CT. No oral contrast administered. Axial images obtained with sagittal and coronal reformats. All CT scans at the facility use one or more dose reduction, viz: automated exposure control, ma/kV adjustment per patient size (including targeted exams where dose is matched to indication, i.e. head), or iterative reconstruction technique. FINDINGS: The liver, gallbladder, spleen, adrenal glands, and pancreas have an unremarkable appearance. There is some cortical scarring of the right kidney with a small right renal cyst. Kidneys are otherwise unremarkable. No retroperitoneal adenopathy. No intestinal obstruction or free air. A pain pump is present in the subcutaneous tissues of the right flank with the catheter entering the canal at the L4-5 level. There is a small umbilical hernia which contains fat. Unremarkable appendix. There is prominent circumferential thickening of the rectum in keeping with patient's history of rectal neoplasm. There is stranding of the presacral fat in perirectal fat. There is also prominent thickening of the urinary bladder with stranding of the fat around the urinary bladder. There is a small amount of gas along the urinary bladder wall. The prostate is slightly enlarged at 4.6 cm. There are degenerative changes in the lumbar spine. No bony destructive process evident. There is ankylosis of the lumbar spine. IMPRESSION: 1. Circumferential thickening of the rectum in keeping with patient's history of rectal tumor/carcinoma. There is mild stranding of the perirectal fat and stranding of the presacral fat which could be inflammatory or neoplastic. 2. Moderate thickening of the bladder wall which is somewhat irregular with stranding of the fat around the urinary bladder. These findings are consistent with cystitis. There are few gas bubbles along the urinary bladder wall which could be iatrogenic or due to gas-forming infection. Radiation cystitis is also consideration. Has the patient had recent radiation treatments? 3. No evidence of metastatic disease within the liver or adrenal glands Dictated by: Praveen Craig MD 02/22/2019 10:30 Signed by: <Electronically signed by Praveen Craig MD in [place]> 02/22/2019 10:30
--- NOTE | 2019-02-21 14:30 | CT_ITS ---
PROCEDURE: CT CHEST W CON CLINICAL HISTORY: RECTAL CA Recurrent rectal cancer, evaluate for metastatic disease COMPARISON: No exams were available for comparison TECHNIQUE: 75 mL Optiray 350 IV Axial images obtained with sagittal and coronal reformats. All CT scans at the facility use one or more dose reduction, viz: automated exposure control, ma/kV adjustment per patient size (including targeted exams where dose is matched to indication, i.e. head), or iterative reconstruction technique. FINDINGS: No mediastinal or hilar mass or adenopathy. Coronary artery calcifications are present. There is mild prominence of the main pulmonary artery with a pulmonary artery/aorta ratio greater than 1. There is a 4 mm noncalcified nodule in the right lower lobe posterior medially. There is minimal subpleural nodularity in the right lung base medially as well. This is nonspecific. There is some calcific plaque in the right lower lobe posterior laterally. 3 mm noncalcified nodules present in the superior segment of the right lower lobe. There is a calcified granuloma within the lingula. Calcified pleural plaque is also present in the left lower lung zone laterally and posteriorly. There are degenerative changes in the thoracic spine with mild kyphosis and ankylosis of the thoracic spine anteriorly IMPRESSION: There are few scattered small pulmonary nodular opacities and some subpleural nodularity in the right lower lobe. These are nonspecific. Overall, the findings are not suspicious for metastatic disease. However, would recommend follow-up to confirm stability of the small pulmonary nodules. Incidental findings include coronary artery calcifications and small bilateral calcific pleural plaques Dictated by: Praveen Craig MD 02/22/2019 10:20 Signed by: <Electronically signed by Praveen Craig MD in [place]> 02/22/2019 10:20
== END ==
PROVIDERS: PCP Emergency Medicine; Visit Provider Surgery
DX: C21.8 Malignant neoplasm of overlapping sites of rectum, anus and anal canal (principal)
CPT/HCPCS: 71260; 74177; Q9967

== ENCOUNTER → 2019-03-14 10:28 | Outpatient (POV) | payer MEDICARE, SELFPAY ==
[2019-03-14 10:41] VITALS: BP 114/51; PULSE 67; RESP 18; O2SAT 96; BMI 25.1
--- NOTE | 2019-03-14 12:14 | HMH.PMPROC ---
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 Patient recently underwent surgery for a large abdominal mass. He is having quite a bit of abdominal pain he is not having any back pain at this time. He rates his pain a 4 out of 10. Patient and I also discussed adding gabapentin to his regimen. I also discussed with him if he needed a short term of oral narcotics from his surgeon that this was appropriate. And just to let us know. He denies any side effects from his morphine infusion and 0.3 mg. We will increase it today Physical Exam General: Alert and oriented x3, no acute distress, pleasant and cooperative, [on room air] Lungs: Resps E/U, Symmetrical chest expansion, Eyes: PERRL Musculoskeletal: Flexion and extension of lumbar spine somewhat guarded secondary to pain, deep tendon reflexes normal, strength in upper and lower extremities [5/5], [abnormal gait noted] Neurological: speech clear, sawdust machine operator equal, no gross sensory deficits Procedure Details:: Informed consent was obtained and the risk and benefits of the procedure were explained to the patient. The patient was taken to the procedure room where noninvasive monitoring was placed including noninvasive blood pressure cuff and pulse oximeter. Patient's pump was interrogated and reprogrammed. The infusion rate was increased to 0.5 mg a day morphine. The patient tolerated the procedure well. Plan and Disposition:: I will see the patient back in 1 week reassess his symptoms at that time he is been instructed to call the office if he has any issues prior to the next appointment. We will start him on gabapentin 300 mg [address] Evans has reviewed this note and agrees with this plan of care. This note was dictated using voice recognition software and may contain errors or omissions
== END ==
PROVIDERS: PCP Emergency Medicine; Visit Provider Clinical Nurse Specialist Family Health
DX: M51.16 Intervertebral disc disorders with radiculopathy, lumbar region (principal)
CPT/HCPCS: 62368; 99212

== ENCOUNTER → 2019-03-20 08:51 | Outpatient (POV) | payer MEDICARE, SELFPAY ==
[2019-03-20 09:28] VITALS: BP 125/81; PULSE 66; RESP 18; O2SAT 99; BMI 25.4
--- NOTE | 2019-03-20 09:56 | P.PCN_ITS ---
- Procedure Date: 03/20/19 Time: 09:53 Anesthesiologist:: Shakila Last APRN Complications:: None Pre-procedure Diagnosis:: Degenerative disc disease lumbar spine with lumbar radiculopathy Post-procedure Diagnosis:: Same Indications for Procedure:: Patient is a pleasant 78-year-old white male who presents today for intrathecal pain pump adjustment. Patient was seen last week and was increased to 0.5 mg a day infusion of morphine. He is undergone surgery for a large abdominal mass. He is seeing his surgeon tomorrow. Though his abdominal pain has subsided he is having low back pain. He rates his pain a 3 out of 10 at this time. Patient denies side effects to his morphine infusion. Patient was prescribed gabapentin however he states after reading the side effects he is uninterested in taking this. Physical Exam General: Alert and oriented x3, no acute distress, pleasant and cooperative, [on room air] Lungs: Resps E/U, Symmetrical chest expansion, Eyes: PERRL Musculoskeletal: Flexion and extension of lumbar spine somewhat guarded secondary to pain, deep tendon reflexes normal, strength in upper and lower extremities [5/5], [abnormal gait noted] Neurological: speech clear, guest services officer equal, no gross sensory deficits Procedure Details:: Informed consent was obtained and the risk and benefits of the procedure were explained to the patient. The patient was taken to the procedure room where noninvasive monitoring was placed including noninvasive blood pressure cuff and pulse oximeter. Patient's pump was interrogated and reprogrammed. The infusion rate was increased to 0.75 mg/day. The patient tolerated the procedure well. Plan and Disposition:: We will see the patient back in 1 week reassess his symptoms at that time he is been instructed to call the office if he has any issues prior to his next appointment. Dr. Evans has reviewed this note and agrees with this plan of care. This note was dictated using voice recognition software and may contain errors or omissions
== END ==
PROVIDERS: PCP Emergency Medicine; Visit Provider Clinical Nurse Specialist Family Health
DX: M51.16 Intervertebral disc disorders with radiculopathy, lumbar region (principal)
CPT/HCPCS: 62368

== ENCOUNTER → 2019-03-27 09:04 | Outpatient (POV) | payer MEDICARE, SELFPAY ==
[2019-03-27 09:22] VITALS: BP 133/94; PULSE 61; RESP 18; O2SAT 98; BMI 25.4
--- NOTE | 2019-03-27 10:08 | P.PCN_ITS ---
- Procedure Date: 03/27/19 Time: 10:05 Anesthesiologist:: Shakila Last APRN Complications:: None Pre-procedure Diagnosis:: Degenerative disc disease lumbar spine with lumbar radiculopathy Post-procedure Diagnosis:: Same Indications for Procedure:: Patient is a pleasant 78-year-old white male who presents today for intrathecal pain pump adjustment. Patient has recently been diagnosed with cancer he had a removal of a large abdominal mass and is considering going through chemotherapy at this time. He rates his pain a 2 out of 10 however when he is up and working is one most of his pain is. We will make some adjustments today. Patient was given a one-time double bolus of 0.1 mg which decreased his pain by 90%. We will discuss potentially utilizing a periodic flow. He is on morphine 0.75 mg/day. With a PTC that he can use every 6 hours. He states that the PTC has not been that beneficial for him. He denies side effects to his medication. Physical Exam General: Alert and oriented x3, no acute distress, pleasant and cooperative, [on room air] Lungs: Resps E/U, Symmetrical chest expansion, Eyes: PERRL Musculoskeletal: Flexion and extension of bar spine somewhat guarded secondary to pain, deep tendon reflexes normal, strength in upper and lower extremities [5/5], [abnormal gait noted] Neurological: speech clear, clinical business analyst equal, no gross sensory deficits Procedure Details:: Informed consent was obtained and the risk and benefits of the procedure were explained to the patient. The patient was taken to the procedure room where noninvasive monitoring was placed including noninvasive blood pressure cuff and pulse oximeter. Patient's pump was interrogated and reprogrammed. The infusion rate was changed to 0.11 mg every 2 hours for total daily dose of 1.3 mg morphine. The patient tolerated the procedure well. Plan and Disposition:: I will see the patient back in 1 week reassess his symptoms at that time he is been instructed to call the office if he has any issues prior to his next appointment. Dr. Evans has reviewed this note and agrees with this plan of care. This note was dictated using voice recognition software and may contain errors or omissions
== END ==
PROVIDERS: PCP Emergency Medicine; Visit Provider Clinical Nurse Specialist Family Health
DX: M51.16 Intervertebral disc disorders with radiculopathy, lumbar region (principal)
CPT/HCPCS: 62368

== ENCOUNTER → 2019-04-18 08:52 | Outpatient (CLI) | payer MEDICARE, SELFPAY ==
--- NOTE | 2019-04-18 09:17 | CT_ITS ---
PROCEDURE: CT ABDOMEN PELVIS W CON CLINICAL INDICATION: RECTAL CANCER Follow-up rectal cancer COMPARISON: The TECHNIQUE: IV Contrast: 75ML OPTIRAY 350 Oral Contrast none Axial images obtained with sagittal and coronal reformats. All CT scans at the facility use one or more dose reduction, viz: automated exposure control, ma/kV adjustment per patient size (including targeted exams where dose is matched to indication, i.e. head), or iterative reconstruction technique. FINDINGS: Lung base images show coronary artery calcifications and small bilateral pleural effusions. Low-dense changes are present in the region of the falciform ligament and may be due to focal fatty infiltration or perfusion defect. No other liver lesions evident. The gallbladder, spleen, adrenal glands, and pancreas have an unremarkable appearance. There is a 2 cm right renal cyst. There is mild diffuse subcutaneous edema of the abdominal wall and trunk. There is a small umbilical hernia containing fat. There is a left lower quadrant colostomy. The urinary bladder is thickened. There is some stranding of the fat in the pelvic region surrounding the urinary bladder. Since the previous exam there appears to have been colorectal surgery with abdominal peritoneal resection of the rectum with clips now in the in the lower pelvic region around the prostate. Gas and fluid collection is present in the rectal bed which may be postsurgical. One cannot exclude the possibility of a superimposed abscess. There is thickening of the presacral fat. There is diffuse ankylosis of the thoracic and lumbar spine with an old compression fracture of L5. There is a intrathecal pain pump present. IMPRESSION: Postsurgical changes from interval abdominal peritoneal resection of the rectum. Gas and fluid collection is present in the rectal bed with some minimal extension around the sides of the prostate and into the lower pelvic region which may only be postsurgical. Cannot exclude the possibility of superimposed infection/abscess based on this single study. There is edema of the peritoneum, abdominal wall and trunk. There is a left lower quadrant ostomy. No evidence of hepatic or adrenal metastasis. Dictated by: Praveen Craig MD 04/19/2019 08:17 Electronically signed by Praveen Craig MD in [place] 04/19/2019 08:17
--- NOTE | 2019-04-18 09:17 | CT_ITS ---
PROCEDURE: CT CHEST W CON CLINCAL INDICATION: RECTAL CANCER Rectal cancer follow-up COMPARISON: CT CHEST W CON from 02/21/2019 CT ABDOMEN PELVIS W CON from 04/18/2019 TECHNIQUE: IV Contrast: 75ml Optiray 350 Axial images obtained with sagittal and coronal reformats. All CT scans at the facility use one or more dose reduction, viz: automated exposure control, ma/kV adjustment per patient size (including targeted exams where dose is matched to indication, i.e. head), or iterative reconstruction technique. FINDINGS: No mediastinal or hilar mass or adenopathy. Normal heart size. There are coronary artery calcifications. No evidence of pericardial effusion. Small bilateral pleural effusions have developed in the interval. There is calcified granuloma within the lingula with mild atelectatic change in the lingula. There is some minimal pleural calcification in the left upper lobe laterally. No suspicious pulmonary nodules are evident. There is ankylosis of the thoracic spine. No bony destructive process apparent. IMPRESSION: Interval development of small bilateral pleural effusions otherwise no significant change. Previously described nodular opacity in the right lung base medially is not identified on today's study and could be obscured from the atelectatic change and pleural effusion. No convincing evidence of pulmonary metastasis. Dictated by: Praveen Craig MD 04/19/2019 08:04 Electronically signed by Praveen Craig MD in [place] 04/19/2019 08:04
[2019-04-18 09:48] LABS: Chloride 105 mmol/L (98-107); Potassium 3.2 mmoL/L (3.5-5.1); Sodium 144 mmol/L (136-145)
[2019-04-18 09:49] LABS: Anion Gap 13.2 mEq/L (5-15); Blood Urea Nitrogen 9 mg/dL (7-18); Calcium 8.4 mg/dL (8.5-10.1); Carbon Dioxide 29 mmol/L (21.0-32.0); Creatinine,Serum 1.01 mg/dL (0.70-1.30); Estimated Glomerular Filt Rate 72 ml/min (>60); GFR (African American) 87 ML/MIN (>60); Glucose 89 mg/dL (74-106)
== END ==
PROVIDERS: PCP Emergency Medicine; Visit Provider Surgery
DX: C20 Malignant neoplasm of rectum (principal)
CPT/HCPCS: 36415; 71260; 74177; 80048; Q9967

== ENCOUNTER → 2019-04-27 16:42 | Outpatient (CLI) | payer MEDICARE, SELFPAY | PROVIDERS: Visit Provider Nurse Practitioner Family | DX: N39.0 Urinary tract infection, site not specified (principal) | CPT/HCPCS: 87086; 87088; 87186 ==

== ENCOUNTER → 2019-08-01 13:19 | Outpatient (CLI) | payer MEDICARE, SELFPAY ==
[2019-08-01 13:36] LABS: Basophils % 0.4 % (0.1-2.0); Eosinophils # 0.1 K/mm3 (0.0-0.4); Eosinophils % 1.1 % (0.1-12.0); Hematocrit 27.2 % (42.0-52.0); Lymphocytes # 0.5 K/mm3 (0.7-4.5); Lymphocytes % 9.8 % (10-50); Mean Corpuscular HGB Conc 29.4 g/dL (31.8-35.4); Mean Corpuscular Hemoglobin 27.3 pg (27.0-31.2); Mean Platelet Volume 7.9 fl (7.4-10.4); Monocytes # 0.4 K/mm3 (0.1-1.0); Monocytes % 7.5 % (1.7-9.3); Neutrophils # 4.1 K/mm3 (1.8-7.8); Neutrophils % 81.1 % (37.0-80.0); Platelet Count 354 K/mm3 (142-424); Red Blood Count 2.92 M/mm3 (4.60-6.20); Red Cell Distribution Width 21.1 % (11.5-17.5); White Blood Count 5.1 K/mm3 (4.8-10.8)
[2019-08-01 13:46] LABS: Alanine Aminotransferase 10 U/L (12-78); Albumin Level 3.2 gm/dL (3.4-5.0); Albumin/Globulin Ratio 0.8 (1.1-1.8); Alkaline Phosphatase 101 U/L (46-116); Anion Gap 12.2 mEq/L (5-15); Aspartate Amino Transferase 13 U/L (15-37); Bilirubin,Total 0.7 mg/dL (0.2-1.0); Blood Urea Nitrogen 11 mg/dL (7-18); Calcium 8.5 mg/dL (8.5-10.1); Carbon Dioxide 29 mmol/L (21.0-32.0); Chloride 103 mmol/L (98-107); Creatinine,Serum 1.01 mg/dL (0.70-1.30); Estimated Glomerular Filt Rate 72 ml/min (>60); GFR (African American) 87 ML/MIN (>60); Globulin 3.9 gm/dl (1.3-3.2); Glucose 92 mg/dL (74-106); Potassium 4.2 mmoL/L (3.5-5.1); Sodium 140 mmol/L (136-145); Total Protein,Serum 7.1 gm/dL (6.4-8.2)
== END ==
PROVIDERS: Visit Provider Emergency Medicine
DX: R60.9 Edema, unspecified (principal); C18.9 Malignant neoplasm of colon, unspecified; L98.9 Disorder of the skin and subcutaneous tissue, unspecified
CPT/HCPCS: 80053; 85025; 87070; 87077; 87186; 87205

== ENCOUNTER 2019-10-11 15:12 | Observation (INO) | payer MEDICARE, SELFPAY ==
[2019-10-11 15:18] VITALS: BMI 25.2
--- NOTE | 2019-10-11 15:20 | CA_ITS ---
APPROVED REPORT Left Lower Extremity Venous Study for DVT. Weight Control Lecturer: PAMELA TomlinsonT Indications Lower Extremity Pain: Lower Extremity Edema: Left PT HAD COLON CA WITH RESECTION 2018, PT STILL ON CHEMO NOW, PITTING EDEMA FROM GROIN TO ANKLE Vein Imaging CFV (L): compressive, spontaneous, phasic, augmentation FEM (L): compressive, spontaneous, phasic, augmentation POP (L): compressive, spontaneous, phasic, augmentation PTV (L): Compressible GSV (L): Compressible Peroneals (L):Compressible GAS (L): Compressible Findings Study suggests no evidence of DVT of the left lower extremity. Study suggests no evidence of SVT of the left lower exremity. Multiple lymph nodes seen left groin, largest measuring 4.2 cm. Conclusion Study suggests no evidence of DVT of the left lower extremity. Study suggests no evidence of SVT of the left lower exremity. Multiple lymph nodes seen left groin, largest measuring 4.2 cm. Electronically signed by : Praveen Craig MD 10/11/2019 16:23:16
[2019-10-11 16:00] VITALS: BP 156/59; PULSE 75; RESP 16; TEMP 36.9; O2SAT 98
--- NOTE | 2019-10-11 16:00 | HMH.HP ---
*Admission Date: 10/11/19 *Chief complaint: cellulitis *History of present illness: 79 yr old male presented to pcp office after been seen by PT. Pt presented with c/o left lower leg edema,redness, golf ball size area to knee. Abscess area to groin that is weeping bloody drainage. Pt states left leg has increase in redness and edema. pt sent from pcp office to be admitted to r/o dvt and iv antibiotics. consult urology for groin abscess. [facility] History I have reviewed the patient's past medical history: Yes Medical History: Reports:: Anxiety, Cancer, Carotid Stenosis, Hyperlipidemia, Hypertension, Myocardial Infarction, Valvular Heart Disease Denies:: Diabetes Mellitus Type 1, Diabetes Mellitus Type 2, Internal Pacemaker, Lung Disease, MRSA, Seizures *Have you ever received a pneumonia vaccine?: Yes *Have you received a flu vaccine this season?: Yes Other Medical History: Reports: Arthritis, Other. Denies: Blood Transfusion Reaction Other Surgeries: Yes: Cancer Surgery, Cardiac Catheterization, Colonoscopy, Colon Resection, Colostomy, EGD, Other. No: Pacemaker Amputation: No Fractures: No - *Social History Smoking Status: Never smoker Alcohol Intake: former Alcohol Intake Frequency:: other Substance Use Type: denies use *Occupational Status:: retired, other Housing: house Household Members: none *Travel in the last 8 weeks: None - Psychiatric History Pschychiatric History:: Reports:: Anxiety Family Hx:: Cancer Review of Systems - Review of Systems Review of systems:: pertinent systems reviewed and negative unless documented below - Constitutional Denies fatigue - Eyes Denies change in vision - ENT Denies change in voice, Denies lip swelling - *Cardiovascular Denies chest pain with activity, Denies fast heart rate - *Respiratory Denies chest congestion - *Gastrointestinal Denies bloating - *Genitourinary Reports other - *Musculoskeletal Denies joint pain - Integumentary/Breasts Reports skin ulcer, Reports sores, Reports wounds, Denies change in hair - *Neurologic Denies abnormal hearing, Denies headache(s) - Psychiatric Denies behavioral changes - Endocrine Denies flushing - Hematologic/Lymphatic Denies easy bruising - Allergic/Immunologic Denies itchy eyes Meds Home Medications Medication Instructions Recorded Confirmed Type bisoproloL fumarate [Zebeta 5mg 5 mg PO DAILY 01/06/19 10/11/19 History tablet] capecitabine 500 mg tablet 1,500 mg PO BID tab 07/03/19 10/11/19 History tamsulosin 0.4 mg capsule 0.4 mg PO DAILY 90 Days #90 cap 08/15/19 10/11/19 Rx Docusate Sodium [Stool Softener] 100 mg PO DAILY 10/12/19 10/12/19 History Allergies Allergy/AdvReac Type Severity Reaction Status Date / Time diclofenac [From ARTHROTEC] Allergy Intermediate I-HIVES Verified 10/11/19 14:49 misoprostol [From ARTHROTEC] Allergy Intermediate I-HIVES Verified 10/11/19 14:49 Exam - Constitutional no acute distress, chronically ill appearing - *Routine HEENT Exam Head: Present: normocephalic Eye: Present: PERRL ENT: Present: mucous membranes moist - *Routine Neck Exam Present: supple. Absent: lymphadenopathy - *Routine Respiratory Exam Present: CTA bilaterally - *Routine Cardiovascular Exam Present: RRR, murmur, bradycardia - *Routine Abdominal Exam Present: soft, normoactive bowel sounds. Absent: tenderness - *Routine Extremities Exam Present: edema, normal capillary refill. Absent: cyanosis, clubbing Comments: left ext red, edema, - *Routine Skin Exam Present: warm, wounds. Absent: rash Comments: wound to groining draining bloody drainage left leg swollen and red with golf ball size mass to knee - *Routine Neurological Exam Present: alert, oriented X3 - Routine Psychiatric Exam Present: normal affect Assessment and Plan (1) Abscess, groin Current visit: Yes Status: Acute Category: Medical Code(s): L02.214 - Cutaneous abscess of groin (2
--- NOTE | 2019-10-11 16:02 | HMH.PHACONS ---
- Pharmacy Consult Date: 10/11/19 Time: 16:02 Referring provider: DR. SYKES Reason for Consult:: VANCOMYCIN DOSING Allergies and ADEs:: Allergies Allergy/AdvReac Type Severity Reaction Status Date / Time diclofenac [From ARTHROTEC] Allergy Intermediate I-HIVES Verified 10/11/19 14:49 misoprostol [From ARTHROTEC] Allergy Intermediate I-HIVES Verified 10/11/19 14:49 Home Medications:: Home Medications Medication Instructions Recorded Confirmed Type bisoproloL fumarate [Zebeta 5mg 5 mg PO DAILY 01/06/19 10/11/19 History tablet] capecitabine 500 mg tablet 1,500 mg PO BID tab 07/03/19 10/11/19 History tamsulosin 0.4 mg capsule 0.4 mg PO DAILY 90 Days #90 cap 08/15/19 10/11/19 Rx Height: 1.9 m Weight: 76 kg Laboratory Results:: 2 Medical History: Reports:: Anxiety, Cancer, Carotid Stenosis, Hyperlipidemia, Hypertension, Myocardial Infarction, Valvular Heart Disease Denies:: Diabetes Mellitus Type 1, Diabetes Mellitus Type 2, Internal Pacemaker, Lung Disease, MRSA, Seizures Assessment and Plan - Assessment and plan all Dx Assessment and Plan for all problems:: BASED ON PATIENT'S FACTORS, RECOMMEND STARTING WITH VANCOMYCIN 1500 MG Q18H AT THIS TIME. ALSO STARTING CLINDAMYCIN 900 MG Q8H AND INVANZ 1 GM Q24H.
--- NOTE | 2019-10-11 16:08 | HMH.PHAVTE ---
[facility] Pharmacy VTE Monitoring - Patient Demographics Admission date: 10/11/19 Report Date: 10/11/19 Time: 16:08 Allergies/Adverse Reactions: Patient Allergies diclofenac [From ARTHROTEC] Allergy (Intermediate, Verified 10/11/19 14:49) I-HIVES misoprostol [From ARTHROTEC] Allergy (Intermediate, Verified 10/11/19 14:49) I-HIVES Height: 1.9 m Weight: 76 kg - Prophylaxis Types of VTE Prophylaxis: Pharmacological Pharmacologic Type: Enoxaparin (LOVENOX ORDERED)
--- NOTE | 2019-10-11 16:16 | PC.NURSE ---
usama called and spoke with him about consult. she told me he would see patient 10/11
[2019-10-11 16:49] LABS: Basophils % 0.1 % (0.1-2.0); Eosinophils # 0.1 K/mm3 (0.0-0.4); Hematocrit 27.7 % (42.0-52.0); Hemoglobin 8.4 g/dL (14.1-18.0); Lymphocytes # 0.5 K/mm3 (0.7-4.5); Mean Corpuscular HGB Conc 30.2 g/dL (31.8-35.4); Mean Corpuscular Hemoglobin 27.4 pg (27.0-31.2); Mean Corpuscular Volume 90.7 fl (80-94); Mean Platelet Volume 7.1 fl (7.4-10.4); Monocytes # 0.5 K/mm3 (0.1-1.0); Monocytes % 4.6 % (1.7-9.3); Neutrophils # 10.2 K/mm3 (1.8-7.8); Neutrophils % 90.2 % (37.0-80.0); Platelet Count 438 K/mm3 (142-424); Red Blood Count 3.05 M/mm3 (4.60-6.20); Red Cell Distribution Width 19.9 % (11.5-17.5); White Blood Count 11.3 K/mm3 (4.8-10.8)
[2019-10-11 17:02] LABS: Blood Urea Nitrogen 12 mg/dl (9-20); Calcium 9.4 mg/dl (8.4-10.2); Carbon Dioxide 29 mmol/L (22.0-30.0); Chloride 99 mmol/L (98-107); Creatinine Clearance Estimated 67 mL/min (50-200); Estimated Glomerular Filt Rate 131 ml/min (>60); GFR (African American) 158 ML/MIN (>60); Glucose 99 mg/dl (74-100); Sodium 136 mmol/L (136-145)
[2019-10-11 17:17] LABS: MANUAL DIFFERENTIAL MANUAL DIFFERENTIAL (MANUAL DIFF)
[2019-10-11 18:09] LABS: Eosinophils % 1 % (0-3); Lymphocytes % 6 % (10-50); Monocytes % 4 % (2-9); Neutrophils % 89 % (42-76); Platelet Estimate Slight Increase; RBC Morphology Normal; Total Cells Counted 100
--- NOTE | 2019-10-11 19:13 | PC.NURSE ---
report given to geoff
[2019-10-11 20:00] VITALS: BP 135/72; PULSE 68; RESP 18; TEMP 36.8; O2SAT 99
[2019-10-11 21:25] LABS: Microscopic, Urine URINE MICROSCOPIC (MICROSCOPIC)
--- NOTE | 2019-10-11 21:26 | PC.NURSE ---
A&OX4. PT TOLERATING RA WELL THUS FAR. REDDENED, RAISED AREA PRESENT BELOW L KNEE. NO PAIN PRESENT, LEG ELEVATED. WARM, HARDENED AREA PRESENT BELOW SCROTUM UPON ASSESSMENT, NO PAIN REPORTED. SMALL OPEN AREA PRESENT TO BUTTOCK PER REPORT, DRESSING CDI. PT RESTING COMFORTABLY IN BED AT THIS TIME. NO COMPLAINTS THUS FAR. CALL MIN IN REACH. USING URINAL. VSS WILL CONTINUE TO MONITOR. U/A COLLECTED AT THIS TIME.
[2019-10-11 21:31] LABS: Appearance,Urine CLEAR (Clear); Bilirubin,Urine Negative (Negative); Blood, Urine 2+ (Negative); Color,Urine YELLOW (Yellow); Glucose,Urine (UA) Negative (Negative); Ketones,Urine Negative (Negative); Leukocyte Esterase,Urine Negative (Negative); Nitrate,Urine Negative (Negative); Protein,Urine TRACE (Negative); Specific Gravity, Urine 1.025 (1.005-1.030); Urobilinogen,Urine 0.2 EU/dl (0.2)
[2019-10-11 21:35] LABS: WBC,Urine Occasional #/hpf (0-3)
[2019-10-11 21:37] LABS: Bacteria,Urine Trace /lpf; Squamous Epithelial Cell,Urine Occasional #/hpf (0-5)
[2019-10-12] VITALS (14 sets, daily range): BP systolic 106–160; BP diastolic 50–72; PULSE 18–72; RESP 14–19; TEMP 36.4–36.9; O2SAT 98–100; BMI 24.4
--- NOTE | 2019-10-12 04:27 | PC.NURSE ---
PT CONTINUES TO SLEEP WELL T/O NIGHT WITH NO COMPLAINTS. VSS WILL CONTINUE TO MONITOR.
[2019-10-12 06:14] LABS: Basophils % 0.3 % (0.1-2.0); Eosinophils # 0.1 K/mm3 (0.0-0.4); Eosinophils % 1.5 % (0.1-12.0); Lymphocytes # 0.4 K/mm3 (0.7-4.5); Lymphocytes % 5.6 % (10-50); Mean Corpuscular HGB Conc 29.7 g/dL (31.8-35.4); Mean Corpuscular Hemoglobin 26.8 pg (27.0-31.2); Mean Corpuscular Volume 90.5 fl (80-94); Mean Platelet Volume 7.7 fl (7.4-10.4); Monocytes # 0.5 K/mm3 (0.1-1.0); Monocytes % 7.1 % (1.7-9.3); Neutrophils # 5.9 K/mm3 (1.8-7.8); Neutrophils % 85.4 % (37.0-80.0); Platelet Count 348 K/mm3 (142-424); Red Blood Count 2.76 M/mm3 (4.60-6.20); Red Cell Distribution Width 19.8 % (11.5-17.5); White Blood Count 6.9 K/mm3 (4.8-10.8)
[2019-10-12 06:23] LABS: Alanine Aminotransferase 8 U/L (12-78); Albumin/Globulin Ratio 0.9 (1.1-1.8); Alkaline Phosphatase 104 U/L (38-126); Anion Gap 9.6 mEq/L (5-15); Aspartate Amino Transferase 17 U/L (17-59); Bilirubin,Total 0.6 mg/dl (0.2-1.3); Blood Urea Nitrogen 11 mg/dl (9-20); Calcium 8.7 mg/dl (8.4-10.2); Carbon Dioxide 28 mmol/L (22.0-30.0); Chloride 101 mmol/L (98-107); Creatinine Clearance Estimated 64 mL/min (50-200); Estimated Glomerular Filt Rate 109 ml/min (>60); GFR (African American) 132 ML/MIN (>60); Globulin 3.4 g/dL (1.3-3.2); Glucose 95 mg/dl (74-100); Potassium 3.6 mmoL/L (3.5-5.1); Sodium 135 mmol/L (136-145); Total Protein,Serum 6.4 g/dl (6.3-8.2)
[2019-10-12 06:24] LABS: Hemoglobin 7.4 g/dL (14.1-18.0)
[2019-10-12 06:25] LABS: MANUAL DIFFERENTIAL MANUAL DIFFERENTIAL (MANUAL DIFF)
--- NOTE | 2019-10-12 09:06 | HMH.ACPN2 ---
Internal Medicine - PN: Subj *Date: 10/12/19 *Time: 14:34 Interval history: pt states he had a good night Exam Vital signs and Labs for Last 24 Hours: Temp Pulse Resp BP Pulse Ox 98.5 F 70 17 126/59 L 99 10/12/19 07:59 10/12/19 07:59 10/12/19 07:59 10/12/19 07:59 10/12/19 07:59 Laboratory Results - last 24 hr 10/11/19 16:00: WBC 11.3 H, RBC 3.05 L, Hgb 8.4 L, Hct 27.7 L, MCV 90.7, MCH 27.4, MCHC 30.2 L, RDW 19.9 H, Plt Count 438 H, MPV 7.1 L, Neut % (Auto) 90.2 H, Lymph % (Auto) 4.0 L, [place] % (Auto) 4.6, Eos % (Auto) 1.0, Baso % (Auto) 0.1, Neut # (Auto) 10.2 H, Lymph # (Auto) 0.5 L, [place] # (Auto) 0.5, Eos # (Auto) 0.1, Baso # (Auto) 0.0, Total Counted 100, Neutrophils % (Manual) 89 H, Lymphocytes % (Manual) 6 L, Monocytes % (Manual) 4, Eosinophils % (Manual) 1, Platelet Estimate Slight increase, RBC Morphology Normal 10/11/19 16:00: Sodium 136, Potassium 4.0, Chloride 99, Carbon Dioxide 29, Anion Gap 12.0, BUN 12, Creatinine 0.60 L, Estimated Creat Clear 67, Estimated GFR 131, Est GFR ( Amer) 158, Glucose 99, Calcium 9.4 10/11/19 21:15: Urine Color Yellow, Urine Appearance Clear, Urine pH 6.0, Ur Specific [place] 1.025, Urine Protein Trace, Urine Glucose (UA) Negative, Urine Ketones Negative, Urine Blood 2+, Urine Nitrate Negative, Urine Bilirubin Negative, Urine Urobilinogen 0.2, Ur Leukocyte Esterase Negative, Urine RBC 5-10, Urine WBC Occasional, Ur Squamous Epith Cells Occasional, Urine Bacteria Trace 10/12/19 05:52: WBC 6.9 D, RBC 2.76 L, Hgb 7.4 L*, Hct 25.0 L, MCV 90.5, MCH 26.8 L, MCHC 29.7 L, RDW 19.8 H, Plt Count 348, MPV 7.7, Neut % (Auto) 85.4 H, Lymph % (Auto) 5.6 L, [place] % (Auto) 7.1, Eos % (Auto) 1.5, Baso % (Auto) 0.3, Neut # (Auto) 5.9, Lymph # (Auto) 0.4 L, [place] # (Auto) 0.5, Eos # (Auto) 0.1, Baso # (Auto) 0.0 10/12/19 05:52: Sodium 135 L, Potassium 3.6, Chloride 101, Carbon Dioxide 28, Anion Gap 9.6, BUN 11, Creatinine 0.70, Estimated Creat Clear 64, Estimated GFR 109, Est GFR ( Amer) 132, Glucose 95, Calcium 8.7, Total Bilirubin 0.6, AST 17, ALT 8 L, Alkaline Phosphatase 104, Total Protein 6.4, Albumin 3.0 L, Globulin 3.4 H, Albumin/Globulin Ratio 0.9 L I & O for Last 24 hours: Intake & Output 10/09/19 10/10/19 10/11/19 10/12/19 11:59 11:59 11:59 11:59 Intake Total 1433 / 1433 Output Total 800 / 800 Balance 633 / 633 Weight 161 lb 6 oz - Constitutional no acute distress, chronically ill appearing - *Routine HEENT Exam Head: Present: normocephalic Eye: Present: PERRL ENT: Present: mucous membranes moist - *Routine Neck Exam Present: supple. Absent: lymphadenopathy - *Routine Respiratory Exam Present: CTA bilaterally - *Routine Cardiovascular Exam Present: RRR, murmur, bradycardia - *Routine Abdominal Exam Present: soft, normoactive bowel sounds, ostomy. Absent: tenderness - *Routine Exam Groin: Present: tenderness, erythema Comments: abscess draining blood tinged drainage - *Routine Extremities Exam Present: edema. Absent: cyanosis, clubbing Comments: left lower ext redness and edema improved slightly aspirated pus from abscess to left knee sent for culture - *Routine Skin Exam Present: warm, wounds. Absent: rash Comments: redness to left lower leg, golf ball size area drained and sent for culture abscess to groining draining- at this time no evidence of ashley gangrene - *Routine Neurological Exam Present: alert, oriented X3 - Routine Psychiatric Exam Present: normal affect Assessment and Plan (1) Abscess, groin Current visit: Yes Status: Acute Category: Medical Code(s): L02.214 - Cutaneous abscess of groin (2) Anemia Current visit: Yes Status: Acute Category: Medical Code(s): D64.9 - Anemia, unspecified (3) Cellulitis Current visit: Yes Status: Acute Qualifiers: Site of cellulitis: extremity Laterality: left Category: Medical Code(s): L03.90 - Cellulitis, unspecified (4) P
--- NOTE | 2019-10-12 09:18 | HMH.PHAINT ---
MEDICATION RECONCILIATION COMPLETE. OBTAINED MEDICATION LIST FROM PROVIDER, CROSS REFERENCED WITH PHARMACY FILL RECORDS, AND SPOKE WITH PATIENT. PATIENT DENIED TAKING ATORVASTATIN, FUROSEMIDE, OR POTASSIUM BUT DID SAY HE TAKES A STOOL SOFTENER DAILY THAT HE PURCHASES OTC BUT COULD NOT REMEMBER THE NAME (OTHER THAN IT WAS A CAPSULE).
--- NOTE | 2019-10-12 10:50 | HMH.CONS ---
*Admission Date: 10/11/19 *Reason for consult:: Perineal abscess *History of present illness: Patient is a 79-year-old white male with history of rectal cancer status post APR 3 years ago at . He has reportedly done well with that since. 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 He went in to see Dr. Chen yesterday and was examined and admitted for the perineal findings. Patient denies any significant pain from the perineum. He has worn a pad for several months due to the drainage. His white count is normal. His hemoglobin is low when he is going to be transfused today. CT scan was performed that showed some postsurgical changes from his previous surgery and persistent stranding of the perivesical fat with thickening of the urinary bladder there remains gas in the surgical bed as well as a small amount of gas the tip of the coccyx not previously demonstrated. Also diffuse stranding of the subcutaneous fat trunk and abdominal perineal region. Colostomy is present. [facility] History Medical History: Reports:: Anxiety, Cancer, Carotid Stenosis, Hyperlipidemia, Hypertension, Myocardial Infarction, Palpitations, Valvular Heart Disease Denies:: Diabetes Mellitus Type 1, Diabetes Mellitus Type 2, Internal Pacemaker, Lung Disease, MRSA, Seizures *Have you ever received a pneumonia vaccine?: No *Have you received a flu vaccine this season?: Yes Other Medical History: Reports: Arthritis, Chemotherapy, Other. Denies: Blood Transfusion Reaction Other Surgeries: Yes: Cancer Surgery, Cardiac Catheterization, Colonoscopy, Colon Resection, Colostomy, EGD, Other. No: Pacemaker Amputation: No Fractures: No - *Social History Educational Level: Completed High School Smoking Status: Never smoker Alcohol Intake: never Alcohol Intake Frequency:: other Substance Use Type: denies use *Occupational Status:: retired Housing: house Household Members: none *Travel in the last 8 weeks: None - Psychiatric History Pschychiatric History:: Reports:: Anxiety Family Hx:: No significant family history Review of Systems - Review of Systems Review of systems:: pertinent systems reviewed and negative unless documented below Meds Home Medications Medication Instructions Recorded Confirmed Type bisoproloL fumarate [Zebeta 5mg 5 mg PO DAILY 01/06/19 10/11/19 History tablet] capecitabine 500 mg tablet 1,500 mg PO BID tab 07/03/19 10/11/19 History tamsulosin 0.4 mg capsule 0.4 mg PO DAILY 90 Days #90 cap 08/15/19 10/11/19 Rx Docusate Sodium [Stool Softener] 100 mg PO DAILY 10/12/19 10/12/19 History Allergies Allergy/AdvReac Type Severity Reaction Status Date / Time diclofenac [From ARTHROTEC] Allergy Intermediate I-HIVES Verified 10/11/19 14:49 misoprostol [From ARTHROTEC] Allergy Intermediate I-HIVES Verified 10/11/19 14:49 Exam Vital signs and Labs for Last 24 Hours: Temp Pulse Resp BP Pulse Ox 98.5 F 70 17 126/59 L 99 10/12/19 07:59 10/12/19 07:59 10/12/19 07:59 10/12/19 07:59 10/12/19 07:59 Laboratory Results - last 24 hr 10/11/19 16:00: WBC 11.3 H, RBC 3.05 L, Hgb 8.4 L, Hct 27.7 L, MCV 90.7, MCH 27.4, MCHC 30.2 L, RDW 19.9 H, Plt Count 438 H, MPV 7.1 L, Neut % (Auto) 90.2 H, Lymph % (Auto) 4.0 L, [place] % (Auto) 4.6, Eos % (Auto) 1.0, Baso % (Auto) 0.1, Neut # (Auto) 10.2 H, Lymph # (Auto) 0.5 L, [place] # (Auto) 0.5, Eos # (Auto) 0.1, Baso # (Auto) 0.0, Total Counted 100, Neutrophils % (Manual) 89 H, Lymphocytes % (Manual) 6 L, Monocytes % (Manual) 4, Eosinophils % (Manual) 1, Platelet Estimate Slight increase, RBC Morphology Normal 10/11/19 16:00: Sodium 136, Potassium 4.0, Chloride 99, Carbon Dioxide 29, Anion Gap 12.0, BUN 12, Creatinine 0.60 L, Estimated Creat Clear 67, Estimated GFR 131, Est GFR ( Amer) 158, Glucose 99, Calcium 9.4 10/11/19 21:15: Urine Color Yellow, Urine Appearance Clear, Urine pH 6.0, Ur Specific [place] 1.025, Urine Protein Trace, Urine Glucose
[2019-10-12 12:39] LABS: Lymphocytes % 9 % (10-50); Monocytes % 2 % (2-9); Neutrophils % 89 % (42-76); Total Cells Counted 100
[2019-10-12 12:41] LABS: Acanthocytes 1+; Anisocytosis 1+; Hypochromasia 1+; Platelet Estimate Normal; Poikilocytosis 1+
--- NOTE | 2019-10-12 12:46 | CT_ITS ---
PROCEDURE: CT ABDOMEN PELVIS WO/W CON CLINICAL INDICATION: perineal abscess/chronic coccygeal wound/h/o APR COMPARISON: ABDPELW/O CT ABD PELVIS W/O CONTRAST from 11/20/2016 CT ABDOMEN PELVIS WO CON from 04/27/2019 TECHNIQUE: IV Contrast: 75ML OPTIRAY 350 Oral Contrast 20 ml Gastroview Axial images obtained with sagittal and coronal reformats. All CT scans at the facility use one or more dose reduction, viz: automated exposure control, ma/kV adjustment per patient size (including targeted exams where dose is matched to indication, i.e. head), or iterative reconstruction technique. FINDINGS: LOWER THORAX: Coronary artery calcifications and aortic valve calcifications are present. There is cardiomegaly. Trace right effusion ABDOMEN & PELVIS: The liver, gallbladder, spleen, adrenal glands, pancreas, and kidneys have an unremarkable appearance. No intestinal obstruction or free air. No evidence of appendicitis. Patient has had a prior anterior perineal resection. There is diffuse subcutaneous edema. There is a small umbilical hernia containing fat and a loop of small bowel along with a small amount of fluid. There is no evidence of bowel obstruction. There is a left lower quadrant colostomy. There are scattered thickened small bowel loops noted in the lower abdomen and right lower quadrant. There is thickening of the terminal ileum.. Thickened small bowel loops are present in the pelvis. There is marked thickening of the urinary bladder. A well-circumscribed fluid collection is present in the presacral region posterior to the urinary bladder with a thickened peripheral capsule. The internal area measures 2.7 cm while the hole area measures 4 point 9 x 3.9 cm. This is posterior to the urinary bladder and in the region of the resected rectum. Previously there was gas present in this region which is no longer apparent. There is thickening of the presacral soft tissues. There is an additional small collection just superior to the urinary bladder which measures 2.3 cm and may actually connect to the the collection in the presacral region. In addition there does appear to be a small collection which is tracking from the rectal area inferiorly to the lower perineum to the expected level of the anus. This measures up to 2.6 cm AP. Abnormal soft tissue density is present surrounding the coccyx. There does appear to be a fistulous track extending from the tip of the coccyx posterior to the skin surface. There is a rosea of the tip of the coccyx compared to an older study of 11/20/2016 but not significantly changed from 04/27/2019. Degenerative changes are present in the lumbar spine. There are enlarged bilateral inguinal lymph nodes measuring up to 2.9 by 2 cm in the left inguinal region. There are scattered small mesenteric lymph nodes IMPRESSION: Postsurgical changes from prior anterior perineal resection with well-circumscribed fluid collections in the presacral/rectal region which appears to extend just superior to the urinary bladder suggesting an abscess. This is associated with diffuse thickening of the presacral fat and diffuse thickening of the urinary bladder. There was gas in these areas on the previous study but not on today's exam. In addition there does appear to be a small collection which is tracking from the rectal area inferiorly to the lower perineum to the expected level of the anus. This measures up to 2.6 cm AP. There is thickening of the presacral fat as well as increased soft tissue density around the tip of the coccyx. There is erosion of the tip of the coccyx compared to an older study of 11/20/2016 Scattered areas of small-bowel wall thickening are noted possibly related to
[2019-10-12 17:49] LABS: Hematocrit 29.8 % (42.0-52.0)
[2019-10-13] VITALS (20 sets, daily range): BP systolic 97–143; BP diastolic 41–85; PULSE 63–72; RESP 16–19; TEMP 36.5–43; O2SAT 93–97; BMI 24.7
--- NOTE | 2019-10-13 05:30 | PC.NURSE ---
BLE EQUAL IN STRENGTH, MOVEMENT, TEMPERATURE AND SENSATION. BLE RED IN COLOR WITH +2 PITTING EDEMA; PULSES WEAK. PT. HAS NOT C/O PAIN, N/V/D, SOA OR DIZZINESS THIS SHIFT.
[2019-10-13 06:34] LABS: Basophils % 0.3 % (0.1-2.0); Eosinophils # 0.2 K/mm3 (0.0-0.4); Eosinophils % 1.9 % (0.1-12.0); Hematocrit 28.3 % (42.0-52.0); Hemoglobin 8.4 g/dL (14.1-18.0); Lymphocytes # 0.4 K/mm3 (0.7-4.5); Lymphocytes % 4.9 % (10-50); Mean Corpuscular HGB Conc 29.8 g/dL (31.8-35.4); Mean Corpuscular Hemoglobin 26.3 pg (27.0-31.2); Mean Corpuscular Volume 88.2 fl (80-94); Mean Platelet Volume 7.8 fl (7.4-10.4); Monocytes # 0.6 K/mm3 (0.1-1.0); Monocytes % 6.6 % (1.7-9.3); Neutrophils # 7.2 K/mm3 (1.8-7.8); Neutrophils % 86.2 % (37.0-80.0); Platelet Count 391 K/mm3 (142-424); Red Blood Count 3.21 M/mm3 (4.60-6.20); Red Cell Distribution Width 20.5 % (11.5-17.5); White Blood Count 8.4 K/mm3 (4.8-10.8)
[2019-10-13 06:38] LABS: Chloride 101 mmol/L (98-107); Potassium 3.6 mmoL/L (3.5-5.1); Sodium 136 mmol/L (136-145)
[2019-10-13 06:41] LABS: Anion Gap 12.6 mEq/L (5-15); Blood Urea Nitrogen 12 mg/dl (9-20); Calcium 8.5 mg/dl (8.4-10.2); Carbon Dioxide 26 mmol/L (22.0-30.0); Creatinine Clearance Estimated 65 mL/min (50-200); Estimated Glomerular Filt Rate 109 ml/min (>60); GFR (African American) 132 ML/MIN (>60); Glucose 93 mg/dl (74-100)
[2019-10-13 07:25] LABS: MANUAL DIFFERENTIAL MANUAL DIFFERENTIAL (MANUAL DIFF)
--- NOTE | 2019-10-13 08:39 | HMH.ACPN2 ---
Internal Medicine - PN: Subj *Date: 10/13/19 *Time: 08:39 Interval history: Patient sitting up in bed states he is feeling better today. Plans for I&D with Dr. Ngo at 1:00 today. Redness and edema to left lower extremity slightly improved. Still has small area abscess below knee. Exam Vital signs and Labs for Last 24 Hours: Temp Pulse Resp BP Pulse Ox 97.7 F 69 18 134/54 L 96 10/13/19 07:34 10/13/19 07:34 10/13/19 07:34 10/13/19 07:34 10/13/19 07:34 Laboratory Results - last 24 hr 10/12/19 05:52: Total Counted 100, Neutrophils % (Manual) 89 H, Lymphocytes % (Manual) 9 L, Monocytes % (Manual) 2, Platelet Estimate Normal, Hypochromasia 1+, Poikilocytosis 1+, Anisocytosis 1+, Acanthocytes (Spur) 1+ 10/12/19 09:02: Blood Type O Negative, Antibody Screen Negative, Crossmatch (AHG) See Detail 10/12/19 13:05: Blood Type Confirm O Negative 10/12/19 17:08: Hgb 9.0 L D, Hct 29.8 L 10/13/19 06:08: WBC 8.4, RBC 3.21 L, Hgb 8.4 L, Hct 28.3 L, MCV 88.2, MCH 26.3 L, MCHC 29.8 L, RDW 20.5 H, Plt Count 391, MPV 7.8, Neut % (Auto) 86.2 H, Lymph % (Auto) 4.9 L, [place] % (Auto) 6.6, Eos % (Auto) 1.9, Baso % (Auto) 0.3, Neut # (Auto) 7.2, Lymph # (Auto) 0.4 L, [place] # (Auto) 0.6, Eos # (Auto) 0.2, Baso # (Auto) 0.0 10/13/19 06:08: Sodium 136, Potassium 3.6, Chloride 101, Carbon Dioxide 26, Anion Gap 12.6, BUN 12, Creatinine 0.70, Estimated Creat Clear 65, Estimated GFR 109, Est GFR ( Amer) 132, Glucose 93, Calcium 8.5 I & O for Last 24 hours: Intake & Output 10/10/19 10/11/19 10/12/19 10/13/19 11:59 11:59 11:59 11:59 Intake Total 1433 / 1433 1212 / 1212 Output Total 800 / 800 900 / 900 Balance 633 / 633 312 / 312 Weight 161 lb 6 oz 163 lb 3 oz Microbiology Reports for the Last 24 Hours: Microbiology 10/12/19 08:30 Knee,Left - Aspirate Gram Stain - Final - Constitutional no acute distress, chronically ill appearing - *Routine HEENT Exam Head: Present: normocephalic Eye: Present: PERRL ENT: Present: mucous membranes moist - *Routine Neck Exam Present: supple. Absent: lymphadenopathy - *Routine Respiratory Exam Present: CTA bilaterally - *Routine Cardiovascular Exam Present: murmur, bradycardia - *Routine Abdominal Exam Present: soft, normoactive bowel sounds, ostomy. Absent: tenderness - *Routine Exam Comments: Abscess to groin draining blood-tinged drainage. - *Routine Extremities Exam Absent: cyanosis, clubbing, edema Comments: Left lower extremity red and edema slightly improved since yesterday - *Routine Skin Exam Present: warm. Absent: rash Comments: Redness and edema to left lower extremity improved small fluid-filled area below knee slightly improved Abscess to groin red tender - *Routine Neurological Exam Present: alert, oriented X3 - Routine Psychiatric Exam Present: normal affect Assessment and Plan (1) Abscess, groin Current visit: Yes Status: Acute Category: Medical Code(s): L02.214 - Cutaneous abscess of groin (2) Anemia Current visit: Yes Status: Acute Category: Medical Code(s): D64.9 - Anemia, unspecified (3) Cellulitis Current visit: Yes Status: Acute Qualifiers: Site of cellulitis: extremity Laterality: left Category: Medical Code(s): L03.90 - Cellulitis, unspecified (4) Perineal abscess Current visit: Yes Status: Acute Category: Medical Code(s): L02.215 - Cutaneous abscess of perineum (5) Bradycardia Current visit: No Status: Acute Category: Medical Code(s): R00.1 - Bradycardia, unspecified (6) History of colon cancer Current visit: No Status: Acute Category: Medical Code(s): Z85.038 - Personal history of other malignant neoplasm of large intestine - Assessment and plan all Dx Assessment and Plan for all problems:: Rounded with Dr. Chen all orders per Gustavo I&D to groin abscess per Dr. Ngo at 1
[2019-10-13 10:39] LABS: Vancomycin,Trough 15.8 ug/mL (5.0-10.0)
--- NOTE | 2019-10-13 10:43 | HMH.PHACONS ---
- Pharmacy Consult Date: 10/13/19 Time: 10:43 Referring provider: DR. SYKES Reason for Consult:: VANCOMYCIN TROUGH LEVEL Allergies and ADEs:: Allergies Allergy/AdvReac Type Severity Reaction Status Date / Time diclofenac [From ARTHROTEC] Allergy Intermediate I-HIVES Verified 10/11/19 14:49 misoprostol [From ARTHROTEC] Allergy Intermediate I-HIVES Verified 10/11/19 14:49 Home Medications:: Home Medications Medication Instructions Recorded Confirmed Type bisoproloL fumarate [Zebeta 5mg 5 mg PO DAILY 01/06/19 10/11/19 History tablet] capecitabine 500 mg tablet 1,500 mg PO BID tab 07/03/19 10/11/19 History tamsulosin 0.4 mg capsule 0.4 mg PO DAILY 90 Days #90 cap 08/15/19 10/11/19 Rx Docusate Sodium [Stool Softener] 100 mg PO DAILY 10/12/19 10/12/19 History Height: 1.73 m Weight: 74.021 kg Laboratory Results:: Laboratory Results - last 24 hr 10/12/19 05:52: Total Counted 100, Neutrophils % (Manual) 89 H, Lymphocytes % (Manual) 9 L, Monocytes % (Manual) 2, Platelet Estimate Normal, Hypochromasia 1+, Poikilocytosis 1+, Anisocytosis 1+, Acanthocytes (Spur) 1+ 10/12/19 09:02: Blood Type O Negative, Antibody Screen Negative, Crossmatch (AHG) See Detail 10/12/19 13:05: Blood Type Confirm O Negative 10/12/19 17:08: Hgb 9.0 L D, Hct 29.8 L 10/13/19 06:08: WBC 8.4, RBC 3.21 L, Hgb 8.4 L, Hct 28.3 L, MCV 88.2, MCH 26.3 L, MCHC 29.8 L, RDW 20.5 H, Plt Count 391, MPV 7.8, Neut % (Auto) 86.2 H, Lymph % (Auto) 4.9 L, [place] % (Auto) 6.6, Eos % (Auto) 1.9, Baso % (Auto) 0.3, Neut # (Auto) 7.2, Lymph # (Auto) 0.4 L, [place] # (Auto) 0.6, Eos # (Auto) 0.2, Baso # (Auto) 0.0 10/13/19 06:08: Sodium 136, Potassium 3.6, Chloride 101, Carbon Dioxide 26, Anion Gap 12.6, BUN 12, Creatinine 0.70, Estimated Creat Clear 65, Estimated GFR 109, Est GFR ( Amer) 132, Glucose 93, Calcium 8.5 10/13/19 09:31: Vancomycin Trough 15.8 H Medical History: Reports:: Anxiety, Cancer, Carotid Stenosis, Hyperlipidemia, Hypertension, Myocardial Infarction, Palpitations, Valvular Heart Disease Denies:: Diabetes Mellitus Type 1, Diabetes Mellitus Type 2, Internal Pacemaker, Lung Disease, MRSA, Seizures Assessment and Plan (1) Abscess, groin Current visit: Yes Status: Acute Category: Medical Code(s): L02.214 - Cutaneous abscess of groin (2) Anemia Current visit: Yes Status: Acute Category: Medical Code(s): D64.9 - Anemia, unspecified (3) Cellulitis Current visit: Yes Status: Acute Qualifiers: Site of cellulitis: extremity Laterality: left Category: Medical Code(s): L03.90 - Cellulitis, unspecified (4) Perineal abscess Current visit: Yes Status: Acute Category: Medical Code(s): L02.215 - Cutaneous abscess of perineum (5) Bradycardia Current visit: No Status: Acute Category: Medical Code(s): R00.1 - Bradycardia, unspecified (6) History of colon cancer Current visit: No Status: Acute Category: Medical Code(s): Z85.038 - Personal history of other malignant neoplasm of large intestine - Assessment and plan all Dx Assessment and Plan for all problems:: BASED ON PATIENT FACTORS AND VANCOMYCIN TROUGH LEVEL OF 15.8, RECOMMEND CONTINUING CURRENT DOSE OF VANCOMYCIN (1,250MG Q12H). PHARMACY WILL CONTINUE TO MONITOR AND ADJUST DOSE APPROPRIATE. -BRETT BARRAZA, GARYD
[2019-10-13 12:03] LABS: Acanthocytes 2+; Anisocytosis 1+; Eosinophils % 1 % (0-3); Hypochromasia 2+; Lymphocytes % 4 % (10-50); Monocytes % 3 % (2-9); Neutrophils % 92 % (42-76); Platelet Estimate Normal; Poikilocytosis 2+; Stomatocytes 1+; Total Cells Counted 100
--- NOTE | 2019-10-13 13:07 | HMH.ANESCL ---
[facility] Anesthesia Checklist - Patient Identification Patient Identification: Arm Band, Verbal (Name & ) - Structural Data Admitted From: Home Planned Operative Procedure/s: perianal abcess Consent for Planned Operative Procedure(s) Verified: Yes Verified Documents: History and Physical - NPO Status Verified Time NPO: 00:00 - Additional verifications Patient : No Anesthesia Reactions: No Hx Blood Transfusions: Yes Blood Transfusion Reaction: No Cephalosporin Allergy: No Previous Colonoscopy: Yes - Cardiovascular Assessment Heart Sounds: S1 & S2 Pulse Strength: Baseline Pulse Rhythm: Regular Peripheral Edema: No - Airway Assessment C-Spine Mobility Assessed: Yes TMJ Mobility Assessed: Yes Dentition: Good Dentition - Neurological Assessment Level of Consciousness: Awake, Alert, Appropriate Hx Seizures: No Numbness or tingling in extremities: No - Anesthesia Plan Anesthesia Risk discussed: Yes Anesthesia Plan: Verified ASA Class: III Anesthesia Type: General [facility] History I have reviewed the patient's past medical history: Yes Medical History: Reports:: Anxiety, Cancer, Carotid Stenosis, Hyperlipidemia, Hypertension, Myocardial Infarction, Palpitations, Valvular Heart Disease Denies:: Diabetes Mellitus Type 1, Diabetes Mellitus Type 2, Internal Pacemaker, Lung Disease, MRSA, Seizures *Have you ever received a pneumonia vaccine?: No *Have you received a flu vaccine this season?: Yes Other Medical History: Reports: Arthritis, Chemotherapy, Other. Denies: Blood Transfusion Reaction Anesthesia experience/problems:: none Other Surgeries: Yes: Cancer Surgery, Cardiac Catheterization, Colonoscopy, Colon Resection, Colostomy, EGD, Other. No: Pacemaker Amputation: No Fractures: No - *Social History Educational Level: Completed High School Smoking Status: Never smoker Alcohol Intake: never Alcohol Intake Frequency:: other Substance Use Type: denies use *Occupational Status:: retired Housing: house Household Members: none *Travel in the last 8 weeks: None - Psychiatric History Pschychiatric History:: Reports:: Anxiety Family Hx:: No significant family history
--- NOTE | 2019-10-13 14:18 | HMH.ANESCL ---
[facility] Anesthesia Checklist - Patient Identification Patient Identification: Arm Band, Verbal (Name & ) - Structural Data Admitted From: Inpatient Planned Operative Procedure/s: i and d Consent for Planned Operative Procedure(s) Verified: Yes Verified Documents: History and Physical - NPO Status Verified Time NPO: 00:00 - Additional verifications Patient : No Anesthesia Reactions: No Hx Blood Transfusions: Yes Blood Transfusion Reaction: No Cephalosporin Allergy: No Previous Colonoscopy: No - Cardiovascular Assessment Heart Sounds: S1 & S2 Pulse Strength: Baseline Pulse Rhythm: Regular Peripheral Edema: No - Airway Assessment C-Spine Mobility Assessed: Yes TMJ Mobility Assessed: Yes Dentition: Poor Dentition - Neurological Assessment Level of Consciousness: Awake, Alert, Appropriate Hx Seizures: No Numbness or tingling in extremities: No - Anesthesia Plan Anesthesia Risk discussed: Yes Anesthesia Plan: Verified ASA Class: III Anesthesia Type: General [facility] History I have reviewed the patient's past medical history: Yes Medical History: Reports:: Anxiety, Cancer, Carotid Stenosis, Hyperlipidemia, Hypertension, Myocardial Infarction, Palpitations, Valvular Heart Disease Denies:: Diabetes Mellitus Type 1, Diabetes Mellitus Type 2, Internal Pacemaker, Lung Disease, MRSA, Seizures *Have you ever received a pneumonia vaccine?: No *Have you received a flu vaccine this season?: Yes Other Medical History: Reports: Arthritis, Chemotherapy, Other. Denies: Blood Transfusion Reaction Anesthesia experience/problems:: none Other Surgeries: Yes: Cancer Surgery, Cardiac Catheterization, Colonoscopy, Colon Resection, Colostomy, EGD, Other. No: Pacemaker Amputation: No Fractures: No - *Social History Educational Level: Completed High School Smoking Status: Never smoker Alcohol Intake: never Alcohol Intake Frequency:: other Substance Use Type: denies use *Occupational Status:: retired Housing: house Household Members: none *Travel in the last 8 weeks: None - Psychiatric History Pschychiatric History:: Reports:: Anxiety Family Hx:: No significant family history
--- NOTE | 2019-10-13 14:34 | SUR.PHASEI ---
Dr Ngo stated he would put orders in. Wanting Wet to Dry dressing change QDay. pack with unraveled 2x2s soaked in sterile water. Cover with dry 4x4's , ABD pad and mesh panties.
--- NOTE | 2019-10-13 14:47 | P.OP_ITS ---
Date of procedure: 10/13/19 Pre-op Diagnosis:: Perineal abscess, bladder wall thickening Post-op Diagnosis:: Perineal abscess 4 x 2 cm, prostate enlargement Procedure performed:: Incision and drainage, debridement of perineal abscess, cystoscopy Surgeon:: Micha Ngo MD MARKET RESEARCH ASSISTANT:: Gonsalo Katz Anesthesia: GETA Estimated blood loss (mL): 10 Clinical Note:: Patient is a 79-year-old white male with several month history of reported draining from the perineal area. Physical examination consistent with a perineal abscess. CT scan also consistent with a localized perineal abscess. Operative findings:: 4 x 2 cm abscess in the perineum. Small amount of pus present and drained. Mild amount of necrotic debris noted at the skin edges. Aerobic and anaerobic cultures obtained Operative note:: Patient taken to the operating room after informed consent was obtained. Placed on the operating table in the supine position and general anesthesia administered. Patient has been on multiple IV antibiotics on the floor. A sequential compression device was placed on the right leg. The left leg appeared to be a bit red and inflamed and I elected to not put stocking on this leg. A Doppler ultrasound this admission has shown no evidence of a DVT. Legs were placed into the dorsal lithotomy position and prepped and draped in the standard surgical fashion. The rigid 21 Jesus passed into the urethra. Patient has some foreskin that is difficult to pull back. Scope was passed to the prostatic urethra where there was some trilobar hyperplasia. The scope felt a bit rigid inside the prostatic urethra likely owing to his previous APR surgery. The bladder was entered and examined in a systematic fashion. There is no evidence of mucosal abnormalities, stones, trabeculation or cellule formation. Prostate was enlarged and the median lobe did encroach upon the ureteral orifices. Both of the ureteral orifices were visualized and were in their normal anatomic position with clear reflux of urine. The scope then removed. We then turned our attention to the perineal abscess. Lidocaine was placed around the edge of the perineal abscess. An incision was then made in the midline over the abscess and carried down through the length of the fluctuant area. Some gross pus was noted and anaerobic and aerobic cultures were obtained. The underlying abscess was filled with some blood in only a small amount of pus. The wound area was debrided of the small amount of necrotic tissue. Copious irrigation was performed with antibiotic solution. Finger dissection was utilized to make sure there were no pockets of pus that had gone unrecognized. There is no evidence of any connection to the prostate or to the rectal area. Hemostasis was achieved and the wound then packed with half of a wet-to-dry 4 x 4. Wound was covered with dry 4 x 4's and ABD pad. Patient tolerated procedure well discharged to recovery in stable condition. Condition: stable Disposition: PACU Specimens:: Wound culture Complications:: None
--- NOTE | 2019-10-13 16:02 | PC.NURSE ---
pt came back from surgery with a catheter at 1450. urine noted to be red in color, md aware from when it was placed in surgery. dressing to scrotal area is slightly saturated with serosanguineous drainage. no expresses no pain thus far. will cont. to monitor.
[2019-10-13 18:37] LABS: Microscopic,Cath URINE MICROSCOPIC (MICROSCOPIC)
[2019-10-13 18:39] LABS: Appearance,Urine/Cath TURBID (Clear); Bilirubin,Cath Negative (Negative); Blood, Urine/Cath 3+ (Negative); Color,Urine/Cath RED (Yellow); Glucose,Urine/Cath (UA) Negative (Negative); Ketones,Urine/Cath Negative (Negative); Leukocyte Esterase,Cath Negative (Negative); Nitrate,Cath Negative (Negative); Protein,Urine/Cath 2+ (Negative); Urobilinogen,Cath 0.2 EU/dl (0.2)
[2019-10-13 18:44] LABS: Amorphous Sediment,Ur/Cath 2+ /lpf; RBC,Urine/Cath TNTC # /hpf (0-3)
[2019-10-14] VITALS: BP 146/58; PULSE 72; RESP 18; TEMP 36.6; O2SAT 98
[2019-10-14 04:00] VITALS: BP 134/62; PULSE 67; RESP 16; TEMP 36.6; O2SAT 100
[2019-10-14 05:07] VITALS: BMI 24.7
--- NOTE | 2019-10-14 06:15 | PC.NURSE ---
Pt rested well throughout shift. Up to chair majority of shift. A&Ox4 w/ no complaints reported. Drsg to incision fell off when changing mesh underwear so this RN placed sterile 4x4's and ABD pad over packed gauze. Old 4x4's well saturated w/ serosang drainage. Colostomy care performed by pt. Sanchez draining bright red urine which has lightened during shift. BLE edema and erythema unchanged since initial assessment.
--- NOTE | 2019-10-14 07:00 | PC.NURSE ---
DURING SHIFT CHANGE PATIENT COMPLAINED OF PRESSURE IN ABDOMEN. DARRIN NEWTON RN ASSESSED CATHETER, DARRIN NEWTON AND THIS RN IRRIGATED HYATT UNTIL URINE FLOWED FREELY. NO OTHER CONCERNS AT THIS TIME.
[2019-10-14 07:53] VITALS: BP 110/50; PULSE 63; RESP 17; TEMP 36.4; O2SAT 100
--- NOTE | 2019-10-14 09:20 | P.PN_ITS ---
Internal Medicine - PN: Subj *Date: 10/14/19 *Time: 09:20 Exam Vital signs and Labs for Last 24 Hours: Temp Pulse Resp BP Pulse Ox 97.5 F L 63 17 110/50 L 100 10/14/19 07:53 10/14/19 07:53 10/14/19 07:53 10/14/19 07:53 10/14/19 07:53 Laboratory Results - last 24 hr 10/13/19 06:08: Total Counted 100, Neutrophils % (Manual) 92 H, Lymphocytes % (Manual) 4 L, Monocytes % (Manual) 3, Eosinophils % (Manual) 1, Platelet Estimate Normal, Hypochromasia 2+, Poikilocytosis 2+, Anisocytosis 1+, Stomatocytes 1+, Acanthocytes (Spur) 2+ 10/13/19 09:31: Vancomycin Trough 15.8 H 10/13/19 13:57: Urine Color Red, Urine Appearance Turbid, Urine pH 6.0, Ur Specific [place] 1.020, Urine Protein 2+, Urine Glucose (UA) Negative, Urine Ketones Negative, Urine Blood 3+, Urine Nitrate Negative, Urine Bilirubin Negative, Urine Urobilinogen 0.2, Ur Leukocyte Esterase Negative, Urine RBC Tntc, Urine WBC None, Ur Squamous Epith Cells 3-5, Urine Bacteria None I & O for Last 24 hours: Intake & Output 10/11/19 10/12/19 10/13/19 10/14/19 23:59 23:59 23:59 23:59 Intake Total 240 / 480 1563 / 1563 1382 / 1382 1139 / 1139 Output Total 700 / 700 850 / 850 1350 / 1350 600 / 600 Balance -460 / -220 713 / 713 32 / 32 539 / 539 Weight 76 kg 73.198 kg 74.021 kg 74.01 kg Microbiology Reports for the Last 24 Hours: Microbiology 10/13/19 13:47 Scrotum Gram Stain - Final 10/11/19 16:00 Blood Blood Culture - Preliminary NO GROWTH AFTER 48 HOURS 10/11/19 16:00 Blood Blood Culture - Preliminary NO GROWTH AFTER 48 HOURS 10/12/19 08:30 Knee,Left - Aspirate Gram Stain - Final 10/12/19 08:30 Knee,Left - Aspirate Wound Culture - Preliminary NO GROWTH AFTER 24 HOURS Assessment and Plan (1) Abscess, groin Current visit: Yes Status: Acute Category: Medical Code(s): L02.214 - Cutaneous abscess of groin (2) Anemia Current visit: Yes Status: Acute Category: Medical Code(s): D64.9 - Anemia, unspecified (3) Cellulitis Current visit: Yes Status: Acute Qualifiers: Site of cellulitis: extremity Laterality: left Category: Medical Code(s): L03.90 - Cellulitis, unspecified (4) Perineal abscess Current visit: Yes Status: Acute Category: Medical Code(s): L02.215 - Cutaneous abscess of perineum (5) Bradycardia Current visit: No Status: Acute Category: Medical Code(s): R00.1 - Bradycardia, unspecified (6) History of colon cancer Current visit: No Status: Acute Category: Medical Code(s): Z85.038 - Personal history of other malignant neoplasm of large intestine The patient's infection will respond to the chosen ABx?: Yes Is the patient receiving the right drug, dose, and route?: Yes Could a more targeted ABx be ordered?: No
--- NOTE | 2019-10-14 09:40 | P.PN_ITS ---
Internal Medicine - PN: Subj *Date: 10/15/19 *Time: 07:51 Interval history: doing ok - no specific c/o - awaiting culture results Exam Vital signs and Labs for Last 24 Hours: Temp Pulse Resp BP Pulse Ox 97.5 F L 63 17 110/50 L 100 10/14/19 07:53 10/14/19 07:53 10/14/19 07:53 10/14/19 07:53 10/14/19 07:53 Laboratory Results - last 24 hr 10/13/19 06:08: Total Counted 100, Neutrophils % (Manual) 92 H, Lymphocytes % (Manual) 4 L, Monocytes % (Manual) 3, Eosinophils % (Manual) 1, Platelet Estimate Normal, Hypochromasia 2+, Poikilocytosis 2+, Anisocytosis 1+, Stomatocytes 1+, Acanthocytes (Spur) 2+ 10/13/19 09:31: Vancomycin Trough 15.8 H 10/13/19 13:57: Urine Color Red, Urine Appearance Turbid, Urine pH 6.0, Ur Specific [place] 1.020, Urine Protein 2+, Urine Glucose (UA) Negative, Urine Ketones Negative, Urine Blood 3+, Urine Nitrate Negative, Urine Bilirubin Negative, Urine Urobilinogen 0.2, Ur Leukocyte Esterase Negative, Urine RBC Tntc, Urine WBC None, Ur Squamous Epith Cells 3-5, Urine Bacteria None I & O for Last 24 hours: Intake & Output 10/11/19 10/12/19 10/13/19 10/14/19 11:59 11:59 11:59 11:59 Intake Total 1433 / 1433 1212 / 1212 1679 / 1679 Output Total 800 / 800 1250 / 1250 1450 / 1450 Balance 633 / 633 -38 / -38 229 / 229 Weight 161 lb 6 oz 163 lb 3 oz 163 lb 2.626 oz Microbiology Reports for the Last 24 Hours: Microbiology 10/12/19 08:30 Knee,Left - Aspirate Gram Stain - Final 10/12/19 08:30 Knee,Left - Aspirate Wound Culture - Preliminary NO GROWTH AFTER 48 HOURS 10/13/19 13:47 Scrotum Gram Stain - Final 10/11/19 16:00 Blood Blood Culture - Preliminary NO GROWTH AFTER 48 HOURS 10/11/19 16:00 Blood Blood Culture - Preliminary NO GROWTH AFTER 48 HOURS - Constitutional no acute distress - *Routine HEENT Exam Head: Present: normocephalic Eye: Present: EOMI, PERRL ENT: Present: mucous membranes dry - *Routine Neck Exam Present: supple. Absent: JVD - *Routine Respiratory Exam Present: CTA bilaterally - *Routine Cardiovascular Exam Present: RRR - *Routine Abdominal Exam Present: soft - *Routine Extremities Exam Absent: calf tenderness - *Routine Skin Exam Present: intact - *Routine Neurological Exam Present: alert, CN II-XII intact - Routine Psychiatric Exam Present: normal affect Assessment and Plan (1) Abscess, groin Current visit: Yes Status: Acute Category: Medical Code(s): L02.214 - Cutaneous abscess of groin (2) Anemia Current visit: Yes Status: Acute Category: Medical Code(s): D64.9 - Anemia, unspecified (3) Cellulitis Current visit: Yes Status: Acute Qualifiers: Site of cellulitis: extremity Laterality: left Category: Medical Code(s): L03.90 - Cellulitis, unspecified (4) Perineal abscess Current visit: Yes Status: Acute Category: Medical Code(s): L02.215 - Cutaneous abscess of perineum (5) Bradycardia Current visit: No Status: Acute Category: Medical Code(s): R00.1 - Bradycardia, unspecified (6) History of colon cancer Current visit: No Status: Acute Category: Medical Code(s): Z85.038 - Personal history of other malignant neoplasm of large intestine
--- NOTE | 2019-10-14 10:00 | PC.NURSE ---
THIS RN REMOVED OLD DRESSING, BLOODY DISCHARGE NOTED. PER MEENAKSHI QUINTANA TO REMOVE GAUZE THAT IS PACKED IN WOUND AND PLACE NEW PACKING. AFTER REMOVING OLD DRESSING. WOUND WAS WASHED WITH SOAP AND WATER USING 4X4 GAUZE. PLAIN PACKING STRIP WAS PACKED INTO WOUND, COVERED WITH 4X4 GAUZE AND ABDOMEN PAD. GAUZE AND ABD PAD ARE HELD INTO PLACE WITH NET UNDERWEAR. PATIENT TOLERATED PROCEDURE WELL. NO OTHER CONCERNS OR NEEDS AT THIS TIME.
[2019-10-14 16:00] VITALS: BP 122/55; PULSE 66; RESP 16; TEMP 36.3; O2SAT 100
--- NOTE | 2019-10-14 19:26 | PC.NURSE ---
THIS RN PHONED DR. SUN IN REGARDS TO HYATT ORDER. THIS RN REPORTED TO MD THAT PATIENT HAD BLOOD CLOTS IN TUBING THIS AM AND THIS RN AND DARRIN NEWTON RN IRRIGATED HYATT AND PATIENT HAS HAD DRAINAGE SINCE WITH BLOOD TINGED URINE FROM CATHETER. PER MD OKAY TO REMOVE. MD ORDERED CONSULT FOR CARE MANAGEMENT FOR DAILY WOUND CARE. NO OTHER NEEDS OR CONCERNS AT THIS TIME.
[2019-10-14 20:00] VITALS: BP 138/58; PULSE 62; RESP 16; TEMP 36.4; O2SAT 96
--- NOTE | 2019-10-15 03:16 | PC.NURSE ---
Pt has slept in short intervals this shift while up to chair. No complaints reported. Pt was able to urinate post callahan removal. Urine color has went from slightly pink w/ large clots to clear, light adiel. Pt does not report any difficulty urinating and is ambulating to BR w/ stand by assist. Drsg to abscess reinforced with abd pad. Erythema and edema to BLE improving since yesterday w/ no reported pain or tenderness.
[2019-10-15 04:00] VITALS: BP 130/64; PULSE 61; RESP 16; TEMP 37.1; O2SAT 98
[2019-10-15 08:00] VITALS: BP 109/47; PULSE 63; RESP 16; TEMP 36.5; O2SAT 99
--- NOTE | 2019-10-15 08:56 | HMH.ACPN2 ---
Internal Medicine - PN: Subj *Date: 10/16/19 *Time: 07:06 Interval history: doing better - labs pending Exam Vital signs and Labs for Last 24 Hours: Temp Pulse Resp BP Pulse Ox 98.7 F 61 16 130/64 98 10/15/19 04:00 10/15/19 04:00 10/15/19 04:00 10/15/19 04:00 10/15/19 04:00 Laboratory Results - last 24 hr 10/12/19 09:02: Crossmatch (AHG) See Detail I & O for Last 24 hours: Intake & Output 10/12/19 10/13/19 10/14/19 10/15/19 11:59 11:59 11:59 11:59 Intake Total 1433 / 1433 1212 / 1212 1679 / 1679 1943 / 1943 Output Total 800 / 800 1250 / 1250 1450 / 1450 900 / 900 Balance 633 / 633 -38 / -38 229 / 229 1043 / 1043 Weight 161 lb 6 oz 163 lb 3 oz 163 lb 2.626 oz Microbiology Reports for the Last 24 Hours: Microbiology 10/13/19 13:47 Scrotum Gram Stain - Final 10/13/19 13:47 Scrotum Abscess Culture - Preliminary NO GROWTH AFTER 24 HOURS 10/12/19 08:30 Knee,Left - Aspirate Gram Stain - Final 10/12/19 08:30 Knee,Left - Aspirate Wound Culture - Preliminary NO GROWTH AFTER 48 HOURS - Constitutional no acute distress - *Routine HEENT Exam Head: Present: normocephalic Eye: Present: EOMI, PERRL ENT: Present: mucous membranes dry - *Routine Neck Exam Present: supple. Absent: JVD - *Routine Respiratory Exam Present: CTA bilaterally - *Routine Cardiovascular Exam Present: RRR, murmur - *Routine Abdominal Exam Present: soft - *Routine Extremities Exam Absent: calf tenderness - *Routine Skin Exam Present: intact - *Routine Neurological Exam Present: alert, CN II-XII intact - Routine Psychiatric Exam Present: normal affect Assessment and Plan (1) Abscess, groin Current visit: Yes Status: Acute Category: Medical Code(s): L02.214 - Cutaneous abscess of groin (2) Anemia Current visit: Yes Status: Acute Category: Medical Code(s): D64.9 - Anemia, unspecified (3) Cellulitis Current visit: Yes Status: Acute Qualifiers: Site of cellulitis: extremity Laterality: left Category: Medical Code(s): L03.90 - Cellulitis, unspecified (4) Perineal abscess Current visit: Yes Status: Acute Category: Medical Code(s): L02.215 - Cutaneous abscess of perineum (5) Bradycardia Current visit: No Status: Acute Category: Medical Code(s): R00.1 - Bradycardia, unspecified (6) History of colon cancer Current visit: No Status: Acute Category: Medical Code(s): Z85.038 - Personal history of other malignant neoplasm of large intestine
[2019-10-15 09:37] LABS: Basophils % 0.5 % (0.1-2.0); Eosinophils # 0.1 K/mm3 (0.0-0.4); Eosinophils % 1.4 % (0.1-12.0); Hematocrit 28.3 % (42.0-52.0); Hemoglobin 8.5 g/dL (14.1-18.0); Lymphocytes # 0.6 K/mm3 (0.7-4.5); Lymphocytes % 7.5 % (10-50); Mean Corpuscular HGB Conc 30.1 g/dL (31.8-35.4); Mean Corpuscular Hemoglobin 26.7 pg (27.0-31.2); Mean Corpuscular Volume 88.8 fl (80-94); Mean Platelet Volume 9.1 fl (7.4-10.4); Monocytes # 0.3 K/mm3 (0.1-1.0); Monocytes % 4.5 % (1.7-9.3); Neutrophils # 6.4 K/mm3 (1.8-7.8); Platelet Count 368 K/mm3 (142-424); Red Blood Count 3.19 M/mm3 (4.60-6.20); White Blood Count 7.4 K/mm3 (4.8-10.8)
[2019-10-15 09:40] LABS: MANUAL DIFFERENTIAL MANUAL DIFFERENTIAL (MANUAL DIFF)
[2019-10-15 09:43] LABS: Chloride 105 mmol/L (98-107); Potassium 3.4 mmoL/L (3.5-5.1); Sodium 140 mmol/L (136-145)
[2019-10-15 09:46] LABS: Anion Gap 9.4 mEq/L (5-15); Blood Urea Nitrogen 16 mg/dl (9-20); Calcium 8.5 mg/dl (8.4-10.2); Carbon Dioxide 29 mmol/L (22.0-30.0); Creatinine Clearance Estimated 65 mL/min (50-200); Estimated Glomerular Filt Rate 94 ml/min (>60); GFR (African American) 113 ML/MIN (>60); Glucose 103 mg/dl (74-100)
[2019-10-15 10:07] LABS: Acanthocytes 2+; Eosinophils % 1 % (0-3); Lymphocytes % 5 % (10-50); Monocytes % 2 % (2-9); Neutrophils % 92 % (42-76); Platelet Estimate Normal; Poikilocytosis 2+; Schistocytes 1+; Stomatocytes 1+; Total Cells Counted 100
[2019-10-15 10:08] LABS: Hypochromasia 1+
--- NOTE | 2019-10-15 10:34 | P.CONPHA_ITS ---
- Pharmacy Consult Date: 10/15/19 Time: 10:34 Referring provider: DR. SYKES Reason for Consult:: VANCOMYCIN TROUGH LEVEL AND DOSE CHANGE Allergies and ADEs:: Allergies Allergy/AdvReac Type Severity Reaction Status Date / Time diclofenac [From ARTHROTEC] Allergy Intermediate I-HIVES Verified 10/11/19 14:49 misoprostol [From ARTHROTEC] Allergy Intermediate I-HIVES Verified 10/11/19 14:49 Home Medications:: Home Medications Medication Instructions Recorded Confirmed Type bisoproloL fumarate [Zebeta 5mg 5 mg PO DAILY 01/06/19 10/11/19 History tablet] capecitabine 500 mg tablet 1,500 mg PO BID tab 07/03/19 10/11/19 History tamsulosin 0.4 mg capsule 0.4 mg PO DAILY 90 Days #90 cap 08/15/19 10/11/19 Rx Docusate Sodium [Stool Softener] 100 mg PO DAILY 10/12/19 10/12/19 History Height: 1.73 m Weight: 74.01 kg Laboratory Results:: Laboratory Results - last 24 hr 10/12/19 09:02: Crossmatch ([facility]G) See Detail 10/15/19 09:28: Vancomycin Trough 23.0 H 10/15/19 09:28: WBC 7.4, RBC 3.19 L, Hgb 8.5 L, Hct 28.3 L, MCV 88.8, MCH 26.7 L , MCHC 30.1 L, RDW 20.0 H, Plt Count 368, MPV 9.1, Neut % (Auto) 86.0 H, Lymph % (Auto) 7.5 L, Gregg % (Auto) 4.5, Eos % (Auto) 1.4, Baso % (Auto) 0.5, Neut # (Auto) 6.4, Lymph # (Auto) 0.6 L, [place] # (Auto) 0.3, Eos # (Auto) 0.1, Baso # (Auto) 0.0, Total Counted 100, Neutrophils % (Manual) 92 H, Lymphocytes % (Manual) 5 L, Monocytes % (Manual) 2, Eosinophils % (Manual) 1, Platelet Estimate Normal, Hypochromasia 1+, Poikilocytosis 2+, Stomatocytes 1+, Acanthocytes (Spur) 2+, Schistocytes 1+ 10/15/19 09:28: Sodium 140, Potassium 3.4 L, Chloride 105, Carbon Dioxide 29, Anion Gap 9.4, BUN 16 D, Creatinine 0.80, Estimated Creat Clear 65, Estimated GFR 94, Est GFR ( Amer) 113, Glucose 103 H, Calcium 8.5 Medical History: Reports:: Anxiety, Cancer, Carotid Stenosis, Hyperlipidemia, Hypertension, Myocardial Infarction, Palpitations, Valvular Heart Disease Denies:: Diabetes Mellitus Type 1, Diabetes Mellitus Type 2, Internal Pacemaker, Lung Disease, MRSA, Seizures Assessment and Plan (1) Abscess, groin Current visit: Yes Status: Acute Category: Medical Code(s): L02.214 - Cutaneous abscess of groin (2) Anemia Current visit: Yes Status: Acute Category: Medical Code(s): D64.9 - Anemia, unspecified (3) Cellulitis Current visit: Yes Status: Acute Qualifiers: Site of cellulitis: extremity Laterality: left Category: Medical Code(s): L03.90 - Cellulitis, unspecified (4) Perineal abscess Current visit: Yes Status: Acute Category: Medical Code(s): L02.215 - Cutaneous abscess of perineum (5) Bradycardia Current visit: No Status: Acute Category: Medical Code(s): R00.1 - Bradycardia, unspecified (6) History of colon cancer Current visit: No Status: Acute Category: Medical Code(s): Z85.038 - Personal history of other malignant neoplasm of large intestine - Assessment and plan all Dx Assessment and Plan for all problems:: BASED ON PATIENT FACTORS AND VANCOMYCIN TROUGH LEVEL OF 23.0, RECOMMEND HOLDING NEXT DOSE OF 1,250MG AND CHANGING DOSE TO 1,500MG Q18H. PHARMACY WILL CONTINUE T O MONITOR AND WILL ADJUST DOSE APPROPRIATE. -BRETT BARRAZA, GARYD
[2019-10-15 15:31] VITALS: BP 134/66; PULSE 66; RESP 16; TEMP 36.9; O2SAT 100
--- NOTE | 2019-10-15 19:19 | PC.NURSE ---
Dressing change done on posterior scrotal wound. No packing visualized in wound, beefy red wound bed visible, pt had been putting paper towels in his underwear with large amount of serosanguionous drainage noted in trash can on paper towels. RN was unaware pt was doing this. Wound irrigated with sterile saline. 1 4x4 gauze was moistened and a corner packed into the wound with 3/4 of the gauze dry on the exterior of the wound. Additional dry 4x4 and abd pad placed outside wound with mesh panties placed over that. Pt complaining of new urgency incontinence and new edema in penis. Penis is extremely swollen. Pt educated to tell RN if it gets worse and to keep penis as elevated as possible.
[2019-10-15 20:00] VITALS: BP 135/79; PULSE 68; RESP 16; TEMP 36.7; O2SAT 99
[2019-10-16 04:37] VITALS: BP 158/96; PULSE 75; RESP 16; TEMP 36.4; O2SAT 96
--- NOTE | 2019-10-16 05:11 | PC.NURSE ---
A&OX3. DISPLAY SPECIALIST STRONG, EQUAL BILAT. LUNGS CLEAR T/O AUSCULTATION. PULSES +2. +2 PITTING EDEMA AND REDNESS NOTED BLE. BLE OOZING SANGUINEOUS DRAINAGE. CHUX APPLIED TO BED TO ABSORB DRAINAGE. ENCOURAGED PT TO ELEVATE BLE ON PILLOW, PT IS NONCOMPLIANT WITH THIS. PT DID NOT SLEEP MAJORITY OF NIGHT, AMBULATED IN ROOM FREQUENTLY INDEPENDENTLY, TOLERATED WELL, WAS UP TO CHAIR MULTIPLE TIMES THIS SHIFT. DRESSING TO SCROTAL AREA REINFORCED X2 THIS SHIFT. GAUZE STRIPS USED TO PACK WOUND, GAUZE AND ABD PAD APPLIED WITH MEDIPORE TAPE. SEROSANGUINEOUS DRAINAGE NOTED ON OLD DRESSINGS, OLD DRESSINGS WERE SATURATED WITH DRAINAGE. PENIS NOTED EDEMATOUS, PT IS STILL ABLE TO HAVE UO. MULTIPLE EPISODES OF URINARY INCONTINENCE NOTED, ATTENDS APPLIED AND CHANGED PRN. PT ABLE TO VOID PER URINAL AT TIMES. COLOSTOMY SITE NOTED TO LEFT PORTION OF ABDOMEN, DRY AND INTACT. SMALL AMOUNT OF BROWN LOOSE STOOL NOTED IN COLOSTOMY BAG. STOMA IS BEEFY/RED. PT IS INDEPENDENT WITH COLOSTOMY CARE. ABDOMEN IS NONDISTENDED, ACTIVE BOWEL SOUNDS, SOFT AND NONTENDER PER PALPATION. VSS. WILL CONTINUE TO MONITOR.
[2019-10-16 08:00] VITALS: BP 134/58; PULSE 67; RESP 16; TEMP 36.6; O2SAT 97
--- NOTE | 2019-10-16 09:19 | HMH.DCSUM ---
General - General Admission date:: 10/11/19 Discharge date: 10/16/19 HPI HPI: 79 yr old male presented to pcp office after been seen by PT. Pt presented with c/o left lower leg edema,redness, golf ball size area to knee. Abscess area to groin that is weeping bloody drainage. Pt states left leg has increase in redness and edema. pt sent from pcp office to be admitted to r/o dvt and iv antibiotics. consult urology for groin abscess. Hospital Course Hospital Course: 79 yr old male presented to pcp office after been seen by PT. Pt presented with c/o left lower leg edema,redness, golf ball size area to knee. Abscess area to groin that is weeping bloody drainage. Pt states left leg has increase in redness and edema. pt sent from pcp office to be admitted to r/o dvt and iv antibiotics. consult urology for groin abscess. 10/11/2019: Venous Doppler study Conclusion Study suggests no evidence of DVT of the left lower extremity. Study suggests no evidence of SVT of the left lower exremity. Multiple lymph nodes seen left groin, largest measuring 4.2 cm. Electronically signed by : Dr. Craig 10/12/2019: Abdomen pelvis CT IMPRESSION: Postsurgical changes from prior anterior perineal resection with well-circumscribed fluid collections in the presacral/rectal region which appears to extend just superior to the urinary bladder suggesting an abscess. This is associated with diffuse thickening of the presacral fat and diffuse thickening of the urinary bladder. There was gas in these areas on the previous study but not on today's exam. In addition there does appear to be a small collection which is tracking from the rectal area inferiorly to the lower perineum to the expected level of the anus. This measures up to 2.6 cm AP. There is thickening of the presacral fat as well as increased soft tissue density around the tip of the coccyx. 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 There is also diffuse bladder wall thickening Bilateral inguinal adenopathy with diffuse subcutaneous edema of the trunk Small umbilical hernia containing a loop of small bowel without obstruction Dictated by: Dr. Craig, 10/12/2019: H&H 7.10/20, received 2 units PRBC, H&H 2 hours post infusion 9.0/29.8. While in the hospital has received vancomycin, ertapenem, and clindamycin IV. 10/13/19: Incision and drainage, debridement of perineal abscess, cystoscopy Left knee aspirate, blood cultures x2 all negative. Awaiting final on urine culture. Today patient up in room ambulating to bathroom per self. Reports urinating without any difficulty. Dressing to perineal area C/D/I, perineal site no redness, wick in place. Patient denies pain. Patient explained dressing change needs to be done daily, he reports no one at home verbalizes he will come to wound clinic for daily dressing change. Objective Vital signs: Temp Pulse Resp BP Pulse Ox 97.8 F 67 16 134/58 L 97 10/16/19 08:00 10/16/19 08:00 10/16/19 08:00 10/16/19 08:00 10/16/19 08:00 no acute distress - *Routine HEENT Exam Head: Present: normocephalic, atraumatic Eye: Present: EOMI, PERRL ENT: Present: mucous membranes moist - *Routine Neck Exam Present: full ROM, trachea midline. Absent: JVD, tracheal deviation - *Routine Respiratory Exam Present: CTA bilaterally. Absent: accessory muscle use - *Routine Cardiovascular Exam Present: RRR, murmur - *Routine Abdominal Exam Present: soft, normoactive bowel sounds, ostomy. Absent: tenderness, firm - *Routine Extremities Exam Present: full ROM, pulses intact - Routine Back/Spine/Pelvis Exam Back/Spine: Present: full ROM. Absent: CVA tenderness - *Routine Skin Exam Present: erythema, warm, wounds Comments: Perineal area w/ wick, Drsg C/D/I LLE Slightly reddened
--- NOTE | 2019-10-16 14:16 | PC.NURSE ---
Pt very anxious to be discharged, stating every day he is in the hospital, he is losing money. RN advised that the hospital will work with him on any bills that may be incurred. Pt remains anxious. Pt states he can come to [facility] on a daily basis, without fail, for dressing changes. Pt tolerated dressing change this morning very well. Dr. Ngo at bedside during dressing change. Advised that with next dressing change, we are pack the incision with moist 2x2 and cover with 4x4. Denies pain/shortness of breath at this time.
--- NOTE | 2019-10-16 14:29 | SW/DCPLANNER ---
Addendum entered by Melissa Araya 09/27/20 13:59: Received a phone call from Dr Chen today stating that home health has called MD stating that patient is having a difficult time at home and could benefit from placement. I called and spoke with this patient and patient is refusing placement. I explained this would be short term to regain strength and decrease swelling: again patient was quick to refuse. Patient stated that he would save my number in case if anything changes. I have relayed message to Dr Chen. Original Note: I have spoke with this patient regarding discharge plans. I received referral for this patient regarding: home health services for dressing changes. Patient will need daily dressing changes x 7 days a week. Patient stated that he lives at home alone and will not have someone to help with daily dressing changes everyday if home health were set up. Patient stated that he would be more comfortable returning to [facility] daily for dressing changes as an outpatient. Placement was also discussed with patient and refused. Patient stated that he can drive and/or his son. Patients son checks on him daily. I have informed Dr Chen/Parth of situation. Patient is anxious to discharge home today. If MD agrees with situation CM will set up outpatient services. Patient could potentially discharge today.
--- NOTE | 2019-10-16 15:45 | HMH.PHAINT ---
DISCHARGE COUNSELING COMPLETE. DISCUSSED ADDITION OF SHORT COURSE LEVAQUIN TO REGIMEN FOR 10 DAYS. PATIENT ENDORSED NO QUESTIONS AT THIS TIME.
== END 2019-10-16 16:33 | disposition home or self-care (01) ==
PROVIDERS: Nurse Practitioner Family; Urology; Admitting Provider Emergency Medicine; PCP Emergency Medicine; Visit Provider Emergency Medicine
PROC: (CPT 10061; principal; 2019-10-13 13:00)
DX: L02.215 Cutaneous abscess of perineum (principal); L02.214 Cutaneous abscess of groin; Z85.048 Personal history of other malignant neoplasm of rectum, rectosigmoid junction, and anus; N40.0 Benign prostatic hyperplasia without lower urinary tract symptoms; D64.9 Anemia, unspecified; I35.8 Other nonrheumatic aortic valve disorders; R00.1 Bradycardia, unspecified; N50.89 Other specified disorders of the male genital organs; E78.5 Hyperlipidemia, unspecified; M79.662 Pain in left lower leg; I10 Essential (primary) hypertension; I34.0 Nonrheumatic mitral (valve) insufficiency; L03.116 Cellulitis of left lower limb; I25.2 Old myocardial infarction; M19.90 Unspecified osteoarthritis, unspecified site; R60.9 Edema, unspecified; F41.9 Anxiety disorder, unspecified; Z79.899 Other long term (current) drug therapy; Z88.6 Allergy status to analgesic agent; Z93.3 Colostomy status
CPT/HCPCS: 10061; 52000; 36415; 74178; 80048; 80053; 80202; 81001; 85007; 85014; 85018; 85025; 86850; 87040; 87070; 87075; 87205; 93971; G0378; J1335; J2405; J3370; P9016; Q9967

== ENCOUNTER 2019-10-17 14:29 | Outpatient (CLI) | payer MEDICARE, SELFPAY | END 2019-10-17 15:30 | disposition home or self-care (01) | PROVIDERS: PCP Emergency Medicine; Visit Provider Emergency Medicine | DX: L02.215 Cutaneous abscess of perineum (principal); Z48.00 Encounter for change or removal of nonsurgical wound dressing | CPT/HCPCS: G0463 ==

== ENCOUNTER 2019-10-19 13:05 | Outpatient (CLI) | payer MEDICARE, SELFPAY | END 2019-10-19 13:25 | disposition home or self-care (01) | LOC: INF 14:02 | PROVIDERS: Visit Provider Urology | DX: Z48.00 Encounter for change or removal of nonsurgical wound dressing (principal); L02.215 Cutaneous abscess of perineum | CPT/HCPCS: G0463 ==

== ENCOUNTER 2019-10-20 13:07 | Outpatient (CLI) | payer MEDICARE, SELFPAY | END 2019-10-20 13:40 | disposition home or self-care (01) | LOC: INF 13:07 | PROVIDERS: Visit Provider Urology | DX: Z48.00 Encounter for change or removal of nonsurgical wound dressing (principal); L02.215 Cutaneous abscess of perineum | CPT/HCPCS: G0463 ==

== ENCOUNTER 2019-10-21 13:25 | Outpatient (CLI) | payer MEDICARE, SELFPAY ==
[2019-10-21 13:57] VITALS: BP 153/74; PULSE 67; RESP 16; O2SAT 94
--- NOTE | 2019-10-21 14:00 | PC.NURSE ---
Old dressing was removed, packing had fell out of place; wound bed was pink with no signs of infection; small amount of clear drainage noted. wound was packed with saline soaked 2x2, covered with dry 4x4's, abd pad and tape. pt tolerated well
== END 2019-10-21 14:01 | disposition home or self-care (01) ==
LOC: INF 13:27
PROVIDERS: PCP Emergency Medicine; Visit Provider Urology
DX: Z48.00 Encounter for change or removal of nonsurgical wound dressing (principal); L02.215 Cutaneous abscess of perineum
CPT/HCPCS: G0463

== ENCOUNTER 2019-10-22 12:27 | Outpatient (CLI) | payer MEDICARE, SELFPAY ==
[2019-10-22 12:35] VITALS: BP 138/64; PULSE 69; RESP 16; O2SAT 99
--- NOTE | 2019-10-22 13:01 | PC.NURSE ---
Same as yesterday, when old dressing was removed the packing had already fell out of place. wound was cleansed with saline and packed with saline soaked 2x2. covered with dry 4x4's, an abd pad and tape; patient tolerated well
== END 2019-10-22 12:56 | disposition home or self-care (01) ==
LOC: INF 12:28
PROVIDERS: PCP Emergency Medicine; Visit Provider Urology
DX: Z48.00 Encounter for change or removal of nonsurgical wound dressing (principal); L02.215 Cutaneous abscess of perineum
CPT/HCPCS: G0463

== ENCOUNTER 2019-10-23 13:36 | Outpatient (CLI) | payer MEDICARE, SELFPAY | END 2019-10-23 13:48 | disposition home or self-care (01) | LOC: INF 13:36 | PROVIDERS: Visit Provider Urology | DX: Z48.00 Encounter for change or removal of nonsurgical wound dressing (principal); L02.215 Cutaneous abscess of perineum | CPT/HCPCS: G0463 ==

== ENCOUNTER 2019-10-24 13:39 | Outpatient (CLI) | payer MEDICARE, SELFPAY | END 2019-10-24 13:55 | disposition home or self-care (01) | LOC: INF 13:39 | PROVIDERS: PCP Emergency Medicine; Visit Provider Urology | DX: Z48.00 Encounter for change or removal of nonsurgical wound dressing (principal); L02.215 Cutaneous abscess of perineum | CPT/HCPCS: G0463 ==

== ENCOUNTER 2019-10-26 14:04 | Outpatient (CLI) | payer MEDICARE, SELFPAY | END 2019-10-26 14:05 | disposition home or self-care (01) | LOC: INF 14:04 | PROVIDERS: Visit Provider Urology | DX: Z48.00 Encounter for change or removal of nonsurgical wound dressing (principal); L02.215 Cutaneous abscess of perineum | CPT/HCPCS: G0463 ==

== ENCOUNTER 2019-10-27 13:30 | Outpatient (CLI) | payer MEDICARE, SELFPAY ==
[2019-10-27 13:55] VITALS: BP 147/82; PULSE 68; RESP 18; TEMP 36.9; O2SAT 96
== END 2019-10-27 13:55 | disposition home or self-care (01) ==
LOC: INF 14:10
PROVIDERS: Visit Provider Urology
DX: Z48.00 Encounter for change or removal of nonsurgical wound dressing (principal); L02.215 Cutaneous abscess of perineum
CPT/HCPCS: G0463

== ENCOUNTER → 2019-10-28 13:48 | Outpatient (CLI) | payer MEDICARE, SELFPAY ==
[2019-10-28 14:00] VITALS: BP 155/70; PULSE 77; RESP 16; TEMP 36.4; O2SAT 95
== END ==
PROVIDERS: PCP Emergency Medicine; Visit Provider Urology
DX: L02.215 Cutaneous abscess of perineum (principal); Z48.00 Encounter for change or removal of nonsurgical wound dressing
CPT/HCPCS: G0463

== ENCOUNTER → 2019-10-29 13:13 | Outpatient (CLI) | payer MEDICARE, SELFPAY ==
[2019-10-29 13:40] VITALS: BP 153/73; PULSE 68; RESP 16; TEMP 36.6; O2SAT 95
[2019-10-29 13:53] VITALS: BP 153/73; PULSE 68; RESP 16; TEMP 36.6; O2SAT 95
== END ==
PROVIDERS: PCP Emergency Medicine; Visit Provider Urology
DX: Z48.00 Encounter for change or removal of nonsurgical wound dressing (principal)
CPT/HCPCS: G0463

== ENCOUNTER → 2019-10-29 13:16 | Outpatient (CLI) | payer MEDICARE, SELFPAY ==
[2019-10-30 17:19] LABS: Covid-19 Nasal PCR Sendout Lex Not Detected
--- NOTE | 2019-10-30 17:40 | PC.NURSE ---
Notified PM field care manager of negative COVID results. Notified patient as well.
== END ==
PROVIDERS: PCP Emergency Medicine; Visit Provider Anesthesiology
DX: Z03.818 Encounter for observation for suspected exposure to other biological agents ruled out (principal); L02.215 Cutaneous abscess of perineum; Z48.00 Encounter for change or removal of nonsurgical wound dressing
CPT/HCPCS: G0463; U0003

== ENCOUNTER 2019-10-30 13:45 | Outpatient (CLI) | payer MEDICARE, SELFPAY | END 2019-10-30 14:00 | disposition home or self-care (01) | LOC: INF 14:10 | PROVIDERS: Visit Provider Urology | DX: L02.215 Cutaneous abscess of perineum (principal); Z48.00 Encounter for change or removal of nonsurgical wound dressing | CPT/HCPCS: G0463 ==

== ENCOUNTER 2019-10-31 13:06 | Day surgery (SDC) | payer MEDICARE, SELFPAY ==
[2019-10-31 13:26] VITALS: BP 169/84; PULSE 68; RESP 18; O2SAT 94; BMI 25.4
[2019-10-31 13:49] VITALS: BP 128/52; PULSE 62; RESP 18; O2SAT 97
[2019-10-31 13:50] VITALS: BP 130/85; PULSE 60; RESP 18; O2SAT 98
--- NOTE | 2019-10-31 13:52 | P.PCN_ITS ---
- Procedure Date: 10/31/19 Time: 13:53 Anesthesiologist:: Shakila Last APRN Complications:: None Pre-procedure Diagnosis:: Degenerative disc disease lumbar spine with lumbar radiculopathy and colon cancer Post-procedure Diagnosis:: Same Indications for Procedure:: Patient is a pleasant 79-year-old white male who presents today for intrathecal pain pump refill and reprogram. Patient is doing well currently on periodic flow 0.1 mg every 2 hours of [address] [facility] #[id number] reviewed and appropriate. Urine drug screens have been appropriate. He is currently on chemo for colon cancer. He is lost a significant amount of weight due to this. Physical Exam General: Alert and oriented x3, no acute distress, pleasant and cooperative, Lungs: Resps E/U, Symmetrical chest expansion, Eyes: PERRL Musculoskeletal: Flexion and extension of lumbar spine somewhat guarded secondary to pain, deep tendon reflexes normal, strength in upper and lower extremities [5/5], [abnormal gait noted] Neurological: speech clear, light armored vehicle officer equal, no gross sensory deficits Procedure Details:: Informed consent was obtained and the risk and benefits of the procedure were explained to the patient. The patient was taken to the procedure room where noninvasive monitoring was placed including noninvasive blood pressure cuff and pulse oximeter. Patient's pump was interrogated. The area over the pump was cleansed with chlorhexidine as a cleansing solution. In sterile fashion the pump was accessed with a 22-gauge needle. Approximately 6.5 mL's were removed o f the pump solution and discarded appropriately. The pump was then refilled with 20 mL's of morphine 10 mg/mL. The needle was withdrawn and a bandage was placed over the puncture site. The infusion rate was reprogrammed to continue at 0.11 mg every 2 hours. The patient tolerated the procedure well. Plan and Disposition:: I will see the patient back at her next intrathecal pain pump refill and reprogram. Patient's been instructed to call the office if he has any issues prior to his next appointment. Dr. Evans has reviewed this note and agrees with this plan of care. This note was dictated using voice recognition software and may contain errors or omissions
[2019-10-31 13:54] VITALS: BP 187/74; PULSE 67; RESP 18; O2SAT 94
--- NOTE | 2019-10-31 14:20 | PC.NURSE ---
1420-pt was discharged from infusion department post dressing change.
== END 2019-10-31 13:54 | disposition home or self-care (01) ==
LOC: SC.PAINP 13:07
PROVIDERS: PCP Emergency Medicine; Visit Provider Clinical Nurse Specialist Family Health
DX: M51.16 Intervertebral disc disorders with radiculopathy, lumbar region (principal); C20 Malignant neoplasm of rectum
CPT/HCPCS: 95991; G0463

== ENCOUNTER 2019-11-01 13:55 | Outpatient (CLI) | payer MEDICARE, SELFPAY | END 2019-11-01 14:08 | disposition home or self-care (01) | LOC: INF 14:16 | PROVIDERS: Visit Provider Urology | DX: L02.215 Cutaneous abscess of perineum (principal); Z48.00 Encounter for change or removal of nonsurgical wound dressing | CPT/HCPCS: G0463 ==

== ENCOUNTER 2019-11-02 14:50 | Outpatient (CLI) | payer MEDICARE, SELFPAY | END 2019-11-02 15:00 | disposition home or self-care (01) | LOC: INF 15:08 | PROVIDERS: Visit Provider Urology | DX: L02.215 Cutaneous abscess of perineum (principal); Z48.00 Encounter for change or removal of nonsurgical wound dressing | CPT/HCPCS: G0463 ==

== ENCOUNTER 2019-11-03 14:59 | Outpatient (CLI) | payer MEDICARE, SELFPAY | END 2019-11-03 15:15 | disposition home or self-care (01) | LOC: INF 14:59 | PROVIDERS: Visit Provider Urology | DX: L02.215 Cutaneous abscess of perineum (principal); Z48.00 Encounter for change or removal of nonsurgical wound dressing | CPT/HCPCS: G0463 ==

== ENCOUNTER → 2019-11-04 14:10 | Outpatient (CLI) | payer MEDICARE, SELFPAY ==
[2019-11-04 14:20] VITALS: BP 144/69; PULSE 57; RESP 18; TEMP 36.8; O2SAT 97
== END ==
PROVIDERS: PCP Emergency Medicine; Visit Provider Urology
DX: L02.215 Cutaneous abscess of perineum (principal); Z48.00 Encounter for change or removal of nonsurgical wound dressing
CPT/HCPCS: G0463

== ENCOUNTER → 2019-11-05 13:31 | Outpatient (CLI) | payer MEDICARE, SELFPAY ==
[2019-11-05 14:00] VITALS: BP 135/60; PULSE 58; RESP 17; TEMP 36.9; O2SAT 93
== END ==
PROVIDERS: PCP Emergency Medicine; Visit Provider Urology
DX: L02.215 Cutaneous abscess of perineum (principal); Z48.00 Encounter for change or removal of nonsurgical wound dressing
CPT/HCPCS: G0463

== ENCOUNTER 2019-11-06 14:35 | Outpatient (CLI) | payer MEDICARE, SELFPAY | END 2019-11-06 14:52 | disposition home or self-care (01) | LOC: INF 14:43 | PROVIDERS: Visit Provider Urology | DX: L02.215 Cutaneous abscess of perineum (principal); Z48.00 Encounter for change or removal of nonsurgical wound dressing | CPT/HCPCS: G0463 ==

== ENCOUNTER 2019-11-07 14:20 | Outpatient (CLI) | payer MEDICARE, SELFPAY | END 2019-11-07 14:35 | disposition home health service (06) | LOC: INF 15:25 | PROVIDERS: Visit Provider Urology | DX: L02.215 Cutaneous abscess of perineum (principal); Z48.00 Encounter for change or removal of nonsurgical wound dressing | CPT/HCPCS: G0463 ==

== ENCOUNTER 2019-11-08 14:08 | Outpatient (CLI) | payer MEDICARE, SELFPAY | END 2019-11-08 14:20 | disposition home or self-care (01) | LOC: INF 14:08 | PROVIDERS: Visit Provider Urology | DX: L02.215 Cutaneous abscess of perineum (principal); Z48.00 Encounter for change or removal of nonsurgical wound dressing | CPT/HCPCS: G0463 ==

== ENCOUNTER 2019-11-09 14:30 | Outpatient (CLI) | payer MEDICARE, SELFPAY | END 2019-11-09 14:40 | disposition home or self-care (01) | LOC: INF 14:48 | PROVIDERS: Visit Provider Urology | DX: L02.215 Cutaneous abscess of perineum (principal); Z48.00 Encounter for change or removal of nonsurgical wound dressing | CPT/HCPCS: G0463 ==

== ENCOUNTER 2019-11-10 14:15 | Outpatient (CLI) | payer MEDICARE, SELFPAY | END 2019-11-10 14:25 | disposition home or self-care (01) | LOC: INF 14:30 | PROVIDERS: Visit Provider Urology | DX: L02.215 Cutaneous abscess of perineum (principal); Z48.00 Encounter for change or removal of nonsurgical wound dressing | CPT/HCPCS: G0463 ==

== ENCOUNTER → 2019-11-11 14:42 | Outpatient (CLI) | payer MEDICARE, SELFPAY ==
[2019-11-11 15:00] VITALS: BP 129/87; PULSE 72; RESP 16; TEMP 36.9; O2SAT 98
== END ==
PROVIDERS: PCP Emergency Medicine; Visit Provider Urology
DX: L02.215 Cutaneous abscess of perineum (principal); Z48.00 Encounter for change or removal of nonsurgical wound dressing
CPT/HCPCS: G0463

== ENCOUNTER → 2019-11-12 14:48 | Outpatient (CLI) | payer MEDICARE, SELFPAY ==
[2019-11-12 16:00] VITALS: BP 169/86; PULSE 83; RESP 20; TEMP 36.6; O2SAT 97
== END ==
PROVIDERS: PCP Emergency Medicine; Visit Provider Urology
DX: L02.215 Cutaneous abscess of perineum (principal); Z48.00 Encounter for change or removal of nonsurgical wound dressing
CPT/HCPCS: G0463

== ENCOUNTER 2019-11-13 15:00 | Outpatient (CLI) | payer MEDICARE, SELFPAY | END 2019-11-13 15:19 | disposition home or self-care (01) | LOC: INF 15:00 | PROVIDERS: Visit Provider Urology | DX: L02.215 Cutaneous abscess of perineum (principal); Z48.00 Encounter for change or removal of nonsurgical wound dressing | CPT/HCPCS: G0463 ==

== ENCOUNTER 2019-11-14 15:05 | Outpatient (CLI) | payer MEDICARE, SELFPAY | END 2019-11-14 15:14 | disposition home or self-care (01) | LOC: INF 15:05 | PROVIDERS: Visit Provider Urology | DX: L02.215 Cutaneous abscess of perineum (principal); Z48.00 Encounter for change or removal of nonsurgical wound dressing | CPT/HCPCS: G0463 ==

== ENCOUNTER 2019-11-15 14:15 | Outpatient (CLI) | payer MEDICARE, SELFPAY ==
--- NOTE | 2019-11-15 15:39 | PC.NURSE ---
1418-REMOVED DRESSING AND IRRIGATED WOUND WITH NS. PACKED WITH NS MOISTENED GAUZE, COVERED WITH DRY 4X4'S AND TAPED INTO PLACE.
== END 2019-11-15 14:25 | disposition home or self-care (01) ==
LOC: INF 15:04
PROVIDERS: Visit Provider Urology
DX: L02.215 Cutaneous abscess of perineum (principal); Z48.00 Encounter for change or removal of nonsurgical wound dressing
CPT/HCPCS: G0463

== ENCOUNTER 2019-11-16 14:55 | Outpatient (CLI) | payer MEDICARE, SELFPAY | END 2019-11-16 15:10 | disposition home or self-care (01) | LOC: INF 15:16 | PROVIDERS: Visit Provider Urology | DX: L02.215 Cutaneous abscess of perineum (principal); Z48.00 Encounter for change or removal of nonsurgical wound dressing | CPT/HCPCS: G0463 ==

== ENCOUNTER 2019-11-17 14:00 | Outpatient (CLI) | payer MEDICARE, SELFPAY | END 2019-11-17 14:10 | disposition home or self-care (01) | LOC: INF 14:59 | PROVIDERS: Visit Provider Urology | DX: L02.215 Cutaneous abscess of perineum (principal); Z48.00 Encounter for change or removal of nonsurgical wound dressing | CPT/HCPCS: G0463 ==

== ENCOUNTER 2019-11-18 14:10 | Outpatient (CLI) | payer MEDICARE, SELFPAY ==
[2019-11-18 14:30] VITALS: BP 126/59; PULSE 58; RESP 17; O2SAT 100
== END 2019-11-18 14:45 | disposition home or self-care (01) ==
LOC: INF 14:11
PROVIDERS: PCP Emergency Medicine; Visit Provider Urology
DX: L02.215 Cutaneous abscess of perineum (principal); Z48.00 Encounter for change or removal of nonsurgical wound dressing
CPT/HCPCS: G0463

== ENCOUNTER 2019-11-19 13:37 | Outpatient (CLI) | payer MEDICARE, SELFPAY ==
[2019-11-19 13:37] VITALS: BP 131/78; PULSE 69; RESP 16; TEMP 36.6; O2SAT 100
[2019-11-19 14:25] VITALS: BP 131/78; PULSE 69; RESP 16; TEMP 36.6; O2SAT 100
== END 2019-11-19 14:33 | disposition home or self-care (01) ==
LOC: INF 13:39
PROVIDERS: PCP Emergency Medicine; Visit Provider Urology
DX: L02.215 Cutaneous abscess of perineum (principal); Z48.00 Encounter for change or removal of nonsurgical wound dressing
CPT/HCPCS: G0463

== ENCOUNTER 2019-11-21 15:00 | Outpatient (CLI) | payer MEDICARE, SELFPAY | END 2019-11-21 15:15 | disposition home or self-care (01) | LOC: INF 15:14 | PROVIDERS: Visit Provider Urology | DX: L02.215 Cutaneous abscess of perineum (principal); Z48.00 Encounter for change or removal of nonsurgical wound dressing | CPT/HCPCS: G0463 ==

== ENCOUNTER 2019-11-22 13:00 | Outpatient (RCR) | payer MEDICARE, SELFPAY ==
--- NOTE | 2019-08-01 15:43 | HMH.PTOPWND ---
Rehab Outpt Wound Evaluation Rehab OP Wound Evaluation Start: 08/01/19 14:11 Freq: Status: Active Protocol: Document 08/01/19 15:11 KIRK (Rec: 08/01/19 15:43 PHORNE [id number]) Electronically Signed By Pee Wiggins, PT 08/01/19 15:11 Subjective/History History History Pt is 79 yowm who presents with c/o B LE edema x 3-4 mos S/P partial colectomy with colostomy due to colon cancer. He reports this is his second diagnosis of colon cancer and her was previously treated with radiation. He is currently taking oral chemo as well. He reports the skin on his legs flakes off and then weeps and has been for several mos. He has several areas of open sores on the lateral lower legs B with large amts of serous drainage. He reports also having an implanted pain pump due to chronic low back pain. He states, They told me my back was fused on its own. He has extremely stiff joints throughout his legs B. He presents using a RW for ambulation assistance. He has 2+ pitting edema noted throughout the LE B, even into the thigh. Subjective Subjective He reports pain of 4/10 in the lower legs B at worst. He also presents with a wound on his sacrum that has been present since his surgery and drains constantly. Lymphedema Eval Classification of Lymphedema Secondary Lymphedema Yes Post-Surgical Lymphedema Yes Stemmer's sign Stemmer's Sign no Stage of Lymphedema Lymphedema stages Stage II (Pitting edema, increased fibrosis w/ decreased pitting) Skin Changes Dry Skin Yes Redness Yes Blisters Yes Wounds Yes Brittle Uneven Nails Yes Discoloration of Skin Yes Other Changes Yes Pain Scale Pain Scale (0-10) 4 Radiatio
--- NOTE | 2019-09-13 14:42 | HMH.RHREAS ---
Rehab Reassessment Rehab OP Re-assessment Start: 09/13/19 14:37 Freq: Status: Active Protocol: Document 09/13/19 14:39 KIRK (Rec: 09/13/19 14:42 KIRK [id number]) Electronically Signed By Pee Wiggins, PT 09/13/19 14:39 Rehab Re-assessment Subjective Subjective Pt reports his legs feel better overall, but continues to have some tenderness to palpation. Objective Objective Notes Circumferential measurments: R LE total 231.4 cm, L LE total 237.7 cm. Pain: 08/07 Assessment Progress Assessment Progressing as Expected Assessment Notes Pt with less dry skin and decreasing fibrotic tissue in B thigh. Continues to have some drainage from a new blister formed on the anterior R ankle. Patient goals met ST,2,3,4,5,6,7 Goals Not Met LT,2,3,4,5,6,7,8 Revised Goals None Plan Plan Continue per initial POC Frequency of Therapy 2 x/wk Duration of therapy 8 wks Time and Billing Re-Eval Time 15 Re-Eval Billing Units 1 PHYSICIAN CERTIFICATION: I certify the specified therapy services for Zaki Mccray are required, authorized, and reviewed every 30 days.
--- NOTE | 2019-10-04 14:36 | HMH.RHREAS ---
Rehab Reassessment Rehab OP Re-assessment Start: 09/13/19 14:37 Freq: Status: Active Protocol: Document 10/04/19 14:33 KIRK (Rec: 10/04/19 14:36 KIRK [id number]) Electronically Signed By Pee Wiggins, PT 10/04/19 14:33 Rehab Re-assessment Subjective Subjective Pt reports no palpation tenderness in B lower legs at this time. Objective Objective Notes B lower legs with 1+ pitting edema at this time, B thigh remains mildly fibrotic tissue quality in nature. Assessment Progress Assessment Progressing as Expected Assessment Notes Continues to improve steadily, no open sores noted at this time, much less dry skin, no hyperkeratosis. Patient goals met ST,2,3,4,5,6,7 Goals Not Met LT,2,3,4,5,6,7,8 Revised Goals None Plan Plan Continue per initial POC Frequency of Therapy 2 x/wk Duration of therapy 8 wks Time and Billing Re-Eval Time 15 Re-Eval Billing Units 1 PHYSICIAN CERTIFICATION: I certify the specified therapy services for Zaki Mccray are required, authorized, and reviewed every 30 days.
== END 2019-11-22 13:05 | disposition home or self-care (01) ==
LOC: PT 13:00
PROVIDERS: Visit Provider Emergency Medicine
DX: I89.0 Lymphedema, not elsewhere classified (principal)
CPT/HCPCS: 29580; 97140; 97162; 97164; 97597; 97760

== ENCOUNTER 2019-11-22 14:25 | Outpatient (CLI) | payer MEDICARE, SELFPAY | END 2019-11-22 14:35 | disposition home or self-care (01) | LOC: INF 14:40 | PROVIDERS: PCP Emergency Medicine; Visit Provider Urology | DX: L02.215 Cutaneous abscess of perineum (principal); Z48.00 Encounter for change or removal of nonsurgical wound dressing | CPT/HCPCS: G0463 ==

== ENCOUNTER 2019-11-23 15:00 | Outpatient (CLI) | payer MEDICARE, SELFPAY | END 2019-11-23 15:15 | disposition home or self-care (01) | LOC: INF 15:34 | PROVIDERS: Visit Provider Urology | DX: L02.215 Cutaneous abscess of perineum (principal); Z48.00 Encounter for change or removal of nonsurgical wound dressing | CPT/HCPCS: G0463 ==

== ENCOUNTER 2019-11-24 15:03 | Outpatient (CLI) | payer MEDICARE, SELFPAY | END 2019-11-24 15:20 | disposition home or self-care (01) | LOC: INF 15:03 | PROVIDERS: Visit Provider Urology | DX: L02.215 Cutaneous abscess of perineum (principal); Z48.00 Encounter for change or removal of nonsurgical wound dressing | CPT/HCPCS: G0463 ==

== ENCOUNTER → 2019-11-25 14:28 | Outpatient (CLI) | payer MEDICARE, SELFPAY ==
[2019-11-25 14:40] VITALS: BP 141/69; PULSE 65; RESP 16; TEMP 36.7; O2SAT 96
== END ==
PROVIDERS: PCP Emergency Medicine; Visit Provider Urology
DX: L02.215 Cutaneous abscess of perineum (principal)
CPT/HCPCS: G0463

== ENCOUNTER → 2019-11-26 13:18 | Outpatient (CLI) | payer MEDICARE, SELFPAY ==
[2019-11-26 13:30] VITALS: BP 152/65; PULSE 63; RESP 20; TEMP 36.6; O2SAT 98
== END ==
PROVIDERS: PCP Emergency Medicine; Visit Provider Urology
DX: L02.215 Cutaneous abscess of perineum (principal)
CPT/HCPCS: G0463

== ENCOUNTER 2019-11-27 13:05 | Outpatient (CLI) | payer MEDICARE, SELFPAY ==
--- NOTE | 2019-11-27 13:10 | PC.NURSE ---
1310-undressed dressing; at bedside;checked pt wound area;md discharged patient from dressing changes.
== END 2019-11-27 13:15 | disposition home or self-care (01) ==
LOC: INF 13:05
PROVIDERS: PCP Emergency Medicine; Visit Provider Urology
DX: L02.215 Cutaneous abscess of perineum (principal)

== ENCOUNTER → 2019-12-14 16:34 | Outpatient (CLI) | payer MEDICARE, SELFPAY | PROVIDERS: Visit Provider Physician Assistant | DX: N39.0 Urinary tract infection, site not specified (principal); N50.89 Other specified disorders of the male genital organs | CPT/HCPCS: 87086 ==

== ENCOUNTER → 2020-01-04 10:00 | Outpatient (POV) | payer MEDICARE, SELFPAY ==
--- NOTE | 2020-01-04 10:51 | HMH.PMPROC ---
- Procedure Date: 01/04/20 Time: 10:51 Anesthesiologist:: Azalia Newton APRN Complications:: None Pre-procedure Diagnosis:: Degenerative disc disease lumbar spine with lumbar radiculopathy symptoms, cute exacerbation gout colon cancer Post-procedure Diagnosis:: Same Indications for Procedure:: Patient is a 79-year-old white male who presents today for intrathecal pain pump adjustment. He is being treated for low back pain with lumbar radiculopathy symptoms, as well as colon cancer and an acute exacerbation of gout. Patient says he is having severe knee pain as well as elbow pain bilaterally. Patient says he is had more than 50 bouts of exacerbations of gout within the last year. He says he generally takes a week of steroids along with an epidural steroid injection and does get relief. He says Dr. Chen has done this for him in the past. Patient also says he is having some increased low back pain today. He says it is radiating into his bilateral lower extremities. He does rate his pain a 7 out of 10 today. The patient is not on any anticoagulation therapy. Patient would like an increase in his intrathecal therapy today. He is currently on morphine at 1.32 mg/day. He denies any side effects to the medication. His morphine equivalent is 0. His urine drug screens have been appropriate. Physical exam General: Alert and oriented x3, no acute distress, pleasant and cooperative, [on room air] Lungs: Respirations even and unlabored, symmetrical chest expansion Eyes: PERRL Musculoskeletal: Flexion and extension of lumbar spine somewhat guarded secondary to pain, deep tendon reflexes normal, strength in upper and lower extremities [5/5], [abnormal gait noted] Neurological: Speech clear, accounting clerks supervisor equal, no gross sensory deficit Procedure Details:: Informed consent was obtained and the risk and benefits of the procedure were explained to the patient. Patient was taken to the procedure room where noninvasive monitoring was placed including noninvasive blood pressure cuff and pulse oximeter. Patient's pump was interrogated and was reprogrammed to morphine at 1.6 mg/day. The patient tolerated the procedure well with no complications. Plan and Disposition:: We will start the patient on prednisone 20 mg 1 tablet p.o. twice daily x5 days. We did increase his intrathecal therapy today as well to 1.6 mg/day. Patient is having some increased low back pain. We will treat the patient for a lumbar epidural steroid injection at L4-L5. He is not on any anticoagulation therapy. The patient and I specifically discussed risk factors for COVID19. These risks include, but are not limited to age greater than 60, heart or lung disease, diabetes, immunosuppression, and travel. We also discussed NSAIDs may worsen COVID19 infection or symptoms. Patient should not use NSAIDs to treat COVID19 signs or symptoms. Patient was also informed that any type of corticosteroid of any form (oral or injection) will decrease the patient's immune system response and may increase the likelihood of COVID19 infection and symptoms. The risks and benefits of the injection, the patient would like to proceed with the injection. We will see him back in the clinic after his injection to reassess his symptoms. The patient has been instructed to contact the clinic if he has any concerns before his next appointment. Dr. Evans has reviewed this note and agrees with this plan of care. This note was dictated using voice recognition software and make contain errors or omissions.
[2020-01-04 10:52] VITALS: BP 131/59; PULSE 90; RESP 18; O2SAT 98; BMI 25.4
== END ==
PROVIDERS: PCP Emergency Medicine; Visit Provider Clinical Nurse Specialist Family Health
DX: M51.16 Intervertebral disc disorders with radiculopathy, lumbar region (principal); G89.3 Neoplasm related pain (acute) (chronic); C18.9 Malignant neoplasm of colon, unspecified
CPT/HCPCS: 62368

== ENCOUNTER 2020-01-12 14:41 | Day surgery (SDC) | payer MEDICARE, SELFPAY ==
[2020-01-12 15:12] VITALS: BP 162/57; PULSE 59; RESP 18; TEMP 36.5; O2SAT 100; BMI 25.4
--- NOTE | 2020-01-12 15:14 | HMH.PMPROC ---
- Procedure Date: 01/12/20 Time: 15:14 Anesthesiologist:: Dez Evans MD Complications:: None Pre-procedure Diagnosis:: Degenerative disc disease of lumbar spine with lumbar radiculopathy symptoms Post-procedure Diagnosis:: Same Indications for Procedure:: This patient is a pleasant 79-year-old white male who we are treating for low back pain with lumbar radiculopathy symptoms. He is doing well with his intrathecal morphine pain pump. We did recently increase him. He does have some increasing low back pain with lumbar radicular symptoms. He also has had many exacerbations of his gout recently. We will do a lumbar epidural steroid injection today to help him with his pain symptoms. Procedure Details:: Lumbar epidural steroid injection under fluoroscopy Informed consent was obtained and the risk and benefits of the procedure was explained to the patient. The patient was taken to the procedure room. The patient was placed prone on the procedure table. The patient was prepped and draped in sterile fashion. C-arm fluoroscopy was used to view the lumbar spine. Skin and subcutaneous tissues were anesthetized using lidocaine. I placed an 18-gauge epidural needle and advanced into the L4-L5 interspace using fluoroscopic guidance and [id number] to air. After confirmation of needle placement in the epidural space with dye I injected 2 mL of lidocaine 1.5% with Depo-Medrol 80 mg. Patient tolerated the procedure well with no complications. Plan and Disposition:: We will follow-up with him in 2 weeks. Will reevaluate symptoms at that time.
[2020-01-12 15:29] VITALS: BP 132/88; BP 140/88; PULSE 79; PULSE 88; RESP 18; O2SAT 98; O2SAT 99
[2020-01-12 15:39] VITALS: BP 166/59; PULSE 68; RESP 20; O2SAT 99
== END 2020-01-12 15:40 | disposition home or self-care (01) ==
LOC: SC.PAINP 14:42
PROVIDERS: PCP Emergency Medicine; Visit Provider Anesthesiology
DX: M51.16 Intervertebral disc disorders with radiculopathy, lumbar region (principal); I11.9 Hypertensive heart disease without heart failure; I27.20 Pulmonary hypertension, unspecified; E78.5 Hyperlipidemia, unspecified; I34.0 Nonrheumatic mitral (valve) insufficiency; I35.8 Other nonrheumatic aortic valve disorders; I65.29 Occlusion and stenosis of unspecified carotid artery; Z85.038 Personal history of other malignant neoplasm of large intestine; D64.9 Anemia, unspecified; Z88.8 Allergy status to other drugs, medicaments and biological substances; Z79.899 Other long term (current) drug therapy
CPT/HCPCS: 62323; J1040; Q9966

== ENCOUNTER → 2020-02-01 15:21 | Outpatient (POV) | payer MEDICARE, SELFPAY ==
[2020-02-01 15:27] VITALS: BP 152/78; PULSE 79; RESP 18; TEMP 36.7; O2SAT 97; BMI 23.7
--- NOTE | 2020-02-01 15:36 | HMH.PAINSOAP ---
[facility] Pain Management SOAP Note Subjective:: Patient is a pleasant 79-year-old white male who presents today for follow-up after lumbar epidural steroid injection. He has been treated for low back pain with lumbar radiculopathy symptoms. He also has an intrathecal morphine pain pump. He is doing well with his intrathecal therapy and with the injection. Patient rates his pain a 0 out of 10 today. He says he did get relief following the injection. Overall, he is doing well. Review of Systems General: No recent weight changes, no fever, no sleep disturbances Respiratory: No cough, no shortness of air, no recurring pulmonary infections Cardiovascular/peripheral vascular: No chest pain, no palpitations, no edema, no shortness of breath Gastrointestinal: No new onset incontinence, normal bowel movements reported Genitourinary: No new onset incontinence Musculoskeletal: Low back pain Psychiatric: Normal mood/affect Neurological: [Denies weakness in extremities], [denies balance issues] Objective:: Physical exam General: Alert and oriented x3, no acute distress, pleasant and cooperative, [on room air] Lungs: Respirations even and unlabored, symmetrical chest expansion Eyes: PERRL Musculoskeletal: Flexion and extension of lumbar spine somewhat guarded secondary to pain, deep tendon reflexes normal, strength in upper and lower extremities [5/5], [abnormal gait noted] Neurological: Speech clear, manhole stripper equal, no gross sensory deficit Assessment:: Degenerative disc disease lumbar spine with lumbar radiculopathy symptoms Plan:: We will plan to follow-up with the patient and his next intrathecal pain pump refill and reprogram. He been instructed to contact clinic if he has any concerns before his next appointment. The patient and I specifically discussed risk factors for COVID19. These risks include, but are not limited to age greater than 60, heart or lung disease, diabetes, immunosuppression, and travel. We also discussed NSAIDs may worsen COVID19 infection or symptoms. Patient should not use NSAIDs to treat COVID19 signs or symptoms. Patient was also informed that any type of corticosteroid of any form (oral or injection) will decrease the patient's immune system response and may increase the likelihood of COVID19 infection [address] symptoms[address] Evans has reviewed this note and agrees with this plan of care. This note was dictated using voice recognition software and make contain errors or omissions. [facility] History I have reviewed the patient's past medical history: Yes Medical History: Reports:: Anxiety, Arrhythmia, Cancer (colon), Carotid Stenosis, Heart Murmur, Hyperlipidemia, Hypertension, Myocardial Infarction, Palpitations, Valvular Heart Disease Denies:: Diabetes Mellitus Type 1, Diabetes Mellitus Type 2, Internal Pacemaker, Lung Disease, MRSA, Seizures *Have you ever received a pneumonia vaccine?: Yes *Have you received a flu vaccine this season?: Yes Other Medical History: Reports: Arthritis, Chemotherapy, Other. Denies: Blood Transfusion Reaction Other Surgeries: Yes: Cancer Surgery, Cardiac Catheterization, Colonoscopy, Colon Resection, Colostomy, EGD, Other. No: Pacemaker Amputation: No Fractures: No - *Social History Smoking Status: Never smoker Alcohol Intake: never Alcohol Intake Frequency:: a few times a month Substance Use Type: denies use *Occupational Status:: other Housing: house Household Members: none *Travel in the last 8 weeks: None - Psychiatric History Pschychiatric History:: Reports:: Anxiety Family Hx:: No significant family history
== END ==
PROVIDERS: PCP Emergency Medicine; Visit Provider Clinical Nurse Specialist Family Health
DX: M51.16 Intervertebral disc disorders with radiculopathy, lumbar region (principal)
CPT/HCPCS: 99212

== ENCOUNTER → 2020-02-05 14:57 | Outpatient (CLI) | payer MEDICARE, SELFPAY ==
[2020-02-05 16:53] LABS: Coronavirus 19 IgG Antibody Negative (Negative); Coronavirus 19 IgM Antibody Negative (Negative)
== END ==
PROVIDERS: Visit Provider Ophthalmology
DX: Z01.818 Encounter for other preprocedural examination (principal)
CPT/HCPCS: 36415; 86328

== ENCOUNTER 2020-02-06 07:37 | Day surgery (SDC) | payer MEDICARE, SELFPAY ==
[2020-01-31 12:07] VITALS: BMI 24.0
[2020-02-06 08:08] VITALS: BP 138/70; PULSE 54; RESP 18; TEMP 36.6; O2SAT 99
[2020-02-06 08:38] VITALS: BP 141/68; PULSE 56; RESP 18; TEMP 36.5; O2SAT 100
== END 2020-02-06 08:49 | disposition home or self-care (01) ==
LOC: OUTP 07:38
PROVIDERS: PCP Emergency Medicine; Visit Provider Ophthalmology
PROC: (CPT 66821; principal; 2020-02-06 08:00)
DX: H26.493 Other secondary cataract, bilateral (principal); H53.8 Other visual disturbances; Z96.1 Presence of intraocular lens; M19.90 Unspecified osteoarthritis, unspecified site; I11.9 Hypertensive heart disease without heart failure; Z85.038 Personal history of other malignant neoplasm of large intestine; Z82.49 Family history of ischemic heart disease and other diseases of the circulatory system; Z79.899 Other long term (current) drug therapy; I48.91 Unspecified atrial fibrillation; I27.20 Pulmonary hypertension, unspecified; M10.9 Gout, unspecified; I34.0 Nonrheumatic mitral (valve) insufficiency
CPT/HCPCS: 66821

== ENCOUNTER 2020-02-12 15:00 | Day surgery (SDC) | payer MEDICARE, SELFPAY ==
[2020-02-12 15:16] VITALS: BP 134/54; PULSE 60; RESP 18; TEMP 36.5; O2SAT 97; BMI 25.0
[2020-02-12 15:34] VITALS: BP 134/74; PULSE 58; RESP 18; O2SAT 98
[2020-02-12 15:35] VITALS: BP 138/77; PULSE 57; RESP 18; O2SAT 98
--- NOTE | 2020-02-12 15:42 | HMH.PMPROC ---
- Procedure Date: 02/12/20 Time: 15:42 Anesthesiologist:: Shakila Last APRN Complications:: None Pre-procedure Diagnosis:: Degenerative disc disease lumbar spine lumbar radiculopathy, cancer Post-procedure Diagnosis:: Same Indications for Procedure:: Patient is a pleasant 79-year-old white male who presents today for follow-up. Patient currently has an intrathecal morphine pump. Morphine 1.6 mg/day. He would like a slight increase. He rates his pain today a 5 out of 10. Physical Exam General: Alert and oriented x3, no acute distress, pleasant and cooperative, [on room air] Lungs: Resps E/U, Symmetrical chest expansion, Eyes: PERRL Musculoskeletal: Flexion and extension of lumbar spine somewhat guarded secondary to pain, deep tendon reflexes normal, strength in upper and lower extremities [5/5], [abnormal gait noted] Neurological: speech clear, semi conductor assembler equal, no gross sensory deficits Procedure Details:: Informed consent was obtained and the risk and benefits of the procedure were explained to the patient. The patient was taken to the procedure room where noninvasive monitoring was placed including noninvasive blood pressure cuff and pulse oximeter. Patient's pump was interrogated. The area over the pump was cleansed with chlorhexidine as a cleansing solution. In sterile fashion the pump was accessed with a 22-gauge needle. Approximately 6.5 mL's were removed of the pump solution and discarded appropriately. The pump was then refilled with 20 mL's of morphine 10 mg/mL. The needle was withdrawn and a bandage was placed over the puncture site. The infusion rate was reprogrammed to increase to 1.8 mg/day. The patient tolerated the procedure well. Plan and Disposition:: We will see the patient at his next intrathecal pain pump refill and reprogram he has been instructed to call the office if he has any issues prior to his next appointment. Dr. Evans has reviewed this note and agrees with this plan of care. This note was dictated using voice recognition software and may contain errors or omissions
[2020-02-12 15:47] VITALS: BP 133/44; PULSE 57; RESP 18; O2SAT 97
== END 2020-02-12 15:48 | disposition home or self-care (01) ==
LOC: SC.PAINP 15:01
PROVIDERS: PCP Emergency Medicine; Visit Provider Clinical Nurse Specialist Family Health
DX: M51.16 Intervertebral disc disorders with radiculopathy, lumbar region (principal); Z85.038 Personal history of other malignant neoplasm of large intestine; N40.0 Benign prostatic hyperplasia without lower urinary tract symptoms; E78.5 Hyperlipidemia, unspecified; I10 Essential (primary) hypertension; Z88.8 Allergy status to other drugs, medicaments and biological substances; D64.9 Anemia, unspecified; I65.29 Occlusion and stenosis of unspecified carotid artery
CPT/HCPCS: 62370

== ENCOUNTER 2020-04-29 13:55 | Day surgery (SDC) | payer MEDICARE, SELFPAY ==
[2020-04-29 14:13] VITALS: BP 128/54; PULSE 57; RESP 18; TEMP 36.4; O2SAT 97; BMI 24.3
[2020-04-29 14:36] VITALS: BP 138/78; PULSE 85; RESP 18
[2020-04-29 14:37] VITALS: BP 140/74; PULSE 79; RESP 18; O2SAT 98
--- NOTE | 2020-04-29 14:47 | P.PCN_ITS ---
- Procedure Date: 04/29/20 Time: 14:47 Anesthesiologist:: Shakila Last APRN Complications:: None Pre-procedure Diagnosis:: Degenerative disc disease lumbar spine lumbar radiculopathy, cancer Post-procedure Diagnosis:: Same Indications for Procedure:: Is a very pleasant 79-year-old white male who presents today for intrathecal pain pump refill and reprogram. Patient like a slight increase today. He is currently on morphine 1.8 mg/day. He denies side effects to his medication. [facility] #[id number] reviewed and appropriate. Drug screens have been appropriate. He rates his pain today 5 out of 10 Physical Exam General: Alert and oriented x3, no acute distress, pleasant and cooperative, [on room air] Lungs: Resps E/U, Symmetrical chest expansion, Eyes: PERRL Musculoskeletal: Flexion and extension of lumbar spine somewhat guarded secondary to pain, deep tendon reflexes normal, strength in upper and lower extremities [5/5], [abnormal gait noted] Neurological: speech clear, instruction assistant principal equal, no gross sensory deficits Procedure Details:: Informed consent was obtained and the risk and benefits of the procedure were explained to the patient. The patient was taken to the procedure room where noninvasive monitoring was placed including noninvasive blood pressure cuff and pulse oximeter. Patient's pump was interrogated. The area over the pump was cleansed with chlorhexidine as a cleansing solution. In sterile fashion the pump was accessed with a 22-gauge needle. Approximately 6 mL's were removed of the pump solution and discarded appropriately. The pump was then refilled with 20 mL's of morphine 10 mg/mL. The needle was withdrawn and a bandage was placed over the puncture site. The infusion rate was reprogrammed to increase to 2 mg/day. The patient tolerated the procedure well. Plan and Disposition:: We will follow-up with the patient at his next intrathecal pain pump refill and reprogram he has been instructed to call the office if he has any issues prior to his next appointment. Dr. Evans has reviewed this note and agrees with this plan of care. This note was dictated using voice recognition software and may contain errors or omissions
[2020-04-29 14:55] VITALS: BP 156/53; PULSE 64; RESP 18; O2SAT 97
== END 2020-04-29 14:55 | disposition home or self-care (01) ==
LOC: SC.PAINP 13:56
PROVIDERS: PCP Emergency Medicine; Visit Provider Clinical Nurse Specialist Family Health
DX: M51.16 Intervertebral disc disorders with radiculopathy, lumbar region (principal); Z85.038 Personal history of other malignant neoplasm of large intestine; I25.10 Atherosclerotic heart disease of native coronary artery without angina pectoris; I10 Essential (primary) hypertension; N40.0 Benign prostatic hyperplasia without lower urinary tract symptoms; I65.29 Occlusion and stenosis of unspecified carotid artery; R01.1 Cardiac murmur, unspecified
CPT/HCPCS: 62370

== ENCOUNTER → 2020-05-29 12:20 | Outpatient (CLI) | payer MEDICARE, SELFPAY ==
--- NOTE | 2020-05-29 12:24 | XR_ITS ---
PROCEDURE: XR FOOT WT BEARING LT 3V CLINICAL INDICATION: foot pain COMPARISON: No exams were available for comparison FINDINGS: There is an overlying wrap which obscures fine detail. There are moderate osteoarthritic changes at the 1st metatarsophalangeal joint with mild hallux valgus with osteoarthritis also at the 1st interphalangeal joint. There is diffuse osteopenia with osteoarthritis also noted at the metatarsophalangeal junction, talonavicular joint, and navicular cuneiform joint. Other findings:Prominent bony hypertrophy is present at the Achilles insertion. IMPRESSION: Osteoarthritis as described above with overlying artifact Dictated by: Praveen Craig MD 05/29/2020 18:18 Praveen Craig MD in [place] 05/29/2020 18:18
--- NOTE | 2020-05-29 12:24 | XR_ITS ---
PROCEDURE: XR FOOT WT BEARING RT 3V CLINICAL INDICATION: foot pain COMPARISON: No exams were available for comparison FINDINGS: Artifact is present from overlying bandage/wrap. Severe osteoarthritic changes are present at the 1st metatarsal phalangeal joint with mild hallux valgus. There are prominent bony spurs medially at the distal 1st metatarsal. There are mild osteoarthritic changes at the tarsal metatarsal junction and at the talonavicular and navicular cuneiform junction. These areas are somewhat obscured by the overlying wrap. No obvious fracture or dislocation is evident. Other findings:None. IMPRESSION: Osteoarthritic changes as described above with overlying artifact Dictated by: Praveen Craig MD 05/29/2020 18:16 Praveen Craig MD in [place] 05/29/2020 18:16
== END ==
PROVIDERS: PCP Emergency Medicine; Visit Provider Nurse Practitioner Family
DX: M79.671 Pain in right foot (principal); M79.672 Pain in left foot
CPT/HCPCS: 73630

== ENCOUNTER → 2020-06-10 11:50 | Outpatient (POV) | payer MEDICARE, SELFPAY ==
[2020-06-10 12:03] VITALS: BP 122/74; PULSE 74; RESP 18; TEMP 36.8; O2SAT 98; BMI 25.8
--- NOTE | 2020-06-10 12:11 | HMH.PMPROC ---
- Procedure Date: 06/10/20 Time: 12:11 Anesthesiologist:: Shakila Last APRN Complications:: None Pre-procedure Diagnosis:: Degenerative disc disease lumbar spine lumbar radiculopathy, cancer Post-procedure Diagnosis:: Same Indications for Procedure:: Patient is a pleasant 80-year-old white male who presents today for intrathecal pain pump reprogram. Patient rates his pain today 5 out of 10. He is currently on 2 mg a day morphine he denies side effects to this medication. [facility] #[id number] reviewed and appropriate. ROS General: no recent weight change, no fever, no sleep disturbances Respiratory: no cough, no shortness of air, no recurring pulmonary infections Cardiovascular/Peripheral Vascular: No chest pain, No palpitations, no edema, no shortness of breath. Gastrointestinal: no new onset incontinence, normal bowel movements reported Genitourinary: no new onset incontinence Musculoskeletal: Back pain, leg pain Psychiatric: normal mood/ affect, [denies depression], [denies anxiety] Neurological: [denies new onset weakness in extremities], [denies new onset balance issues]. Physical Exam General: Alert and oriented x3, no acute distress, pleasant and cooperative, [on room air] Lungs: Resps E/U, Symmetrical chest expansion, Eyes: PERRL Musculoskeletal: Flexion and extension of lumbar spine somewhat guarded secondary to pain, deep tendon reflexes normal, strength in upper and lower extremities [5/5], [abnormal gait noted] Neurological: speech clear, tool profiling machine set up operator equal, no gross sensory deficits Procedure Details:: Informed consent was obtained and the risk and benefits of the procedure were explained to the patient. The patient was taken to the procedure room where noninvasive monitoring was placed including noninvasive blood pressure cuff and pulse oximeter. Patient's pump was interrogated and reprogrammed. The infusion rate was increased to 2.6 mg/day. The patient tolerated the procedure well. Plan and Disposition:: I will follow-up with the patient at his next intrathecal pain pump refill and reprogram he has been instructed to call the office if he has any issues prior to his next appointment. Dr. Evans has reviewed this note and agrees with this plan of care. This note was dictated using voice recognition software and may contain errors or omissions
== END ==
PROVIDERS: PCP Emergency Medicine; Visit Provider Clinical Nurse Specialist Family Health
DX: M51.16 Intervertebral disc disorders with radiculopathy, lumbar region (principal); Z85.038 Personal history of other malignant neoplasm of large intestine
CPT/HCPCS: 62368

== ENCOUNTER 2020-06-27 11:00 | Outpatient (RCR) | payer MEDICARE, SELFPAY ==
--- NOTE | 2020-05-27 13:58 | HMH.PTOPWND ---
Rehab Outpt Wound Evaluation Rehab OP Wound Evaluation Start: 05/27/20 13:17 Freq: Status: Active Protocol: Document 05/27/20 13:36 PHOLARA (Rec: 05/27/20 13:58 PHORNE [id number]) Electronically Signed By Pee Wiggins, PT 05/27/20 13:36 Subjective/History History History Pt is 79 yowm who presents with c/o B LE edema and weeping, L worse than R, x ~ 1 yr overall. He was previously a pt at our clinic and improved with treatment, but he is unable to properly care for himself independently at home and his problems returned . He reports tenderness to palpation throughout L lower leg and significantly increased weeping of the L lower leg. He has hx of CAD, OH, HTN, HL, anxiety. He also has had a implanted pain pump for control of chronic low back pain for ~ 2 yrs. Subjective Subjective Currently 2/10 pain. B lower leg with 2+ pitting edema, L LE 2+ pitting edema continues throughout the entire LE. Will require wound care to B LE Lymphedema Eval Classification of Lymphedema Secondary Lymphedema Yes Stemmer's sign Stemmer's Sign yes Stage of Lymphedema Lymphedema stages Stage II (Pitting edema, increased fibrosis w/ decreased pitting) Skin Changes Dry Skin Yes Hyperkeratosis Yes: L>R Redness Yes Wounds Yes Brittle Uneven Nails Yes Discoloration of Skin Yes Other Changes Yes Affected Extremities Areas Affected by Lymphedema/Edema Right Lower Extremity,Left Lower Extremity Manual Lymphatic Drainage Treatment Area MLD Treatment Area Right Lower Extremity,Left Lower Extremity Wound Problems/Impairments Impairments Problems/Impairmments Palpation Tenderness,Impaired Strength,Impaired Endurance, Impaired Gait Pattern,Impaired Walking,Impaired Standing, Impaired Shower/Bathing, Impaired Household Care,
== END 2020-06-27 11:05 | disposition home or self-care (01) ==
LOC: PT 11:00
PROVIDERS: PCP Emergency Medicine; Visit Provider Nurse Practitioner Family
DX: R60.0 Localized edema (principal)
CPT/HCPCS: 29580; 97140; 97163; 97597

== ENCOUNTER 2020-07-01 14:35 | Day surgery (SDC) | payer MEDICARE, SELFPAY ==
[2020-07-01 14:40] VITALS: BP 175/76; PULSE 52; RESP 18; TEMP 36.6; O2SAT 98; BMI 25.4
[2020-07-01 15:21] VITALS: BP 158/89; PULSE 57; RESP 18; O2SAT 98
[2020-07-01 15:22] VITALS: BP 185/78; PULSE 74; RESP 18; O2SAT 98
--- NOTE | 2020-07-01 15:25 | HMH.PMPROC ---
- Procedure Date: 07/01/20 Time: 15:25 Anesthesiologist:: Shakila Last APRN Complications:: None Pre-procedure Diagnosis:: Degenerative disc disease lumbar spine lumbar radiculopathy and cancer Post-procedure Diagnosis:: Same Indications for Procedure:: Patient is a pleasant 80-year-old white male who presents today for intrathecal pain pump refill and reprogram he rates his pain a 7 out of 10. He is currently on 2.6 mg of morphine. He is not feeling like the pain is under control. He would like to discuss other options. [facility] #[id number] reviewed and appropriate. Patient and I discussed potential medication change we will give him 1 more increase in his intrathecal infusion today to see if this helps if it does not we will move forward with a medication change. Procedure Details:: Informed consent was obtained and the risk and benefits of the procedure were explained to the patient. The patient was taken to the procedure room where noninvasive monitoring was placed including noninvasive blood pressure cuff and pulse oximeter. Patient's pump was interrogated. The area over the pump was cleansed with chlorhexidine as a cleansing solution. In sterile fashion the pump was accessed with a 22-gauge needle. Approximately 6 mL's were removed of the pump solution and discarded appropriately. The pump was then refilled with 20 mL's of 10 mg/mL. The needle was withdrawn and a bandage was placed over the puncture site. The infusion rate was reprogrammed to 3.6 mg /day. The patient tolerated the procedure well. Plan and Disposition:: See the patient back at his next intrathecal pain pump refill and reprogram. If he does not feel like this has benefited him in the next couple weeks he is to call the office and we will change his medications. Dr. Evans has reviewed this note and agrees with this plan of care. This note was dictated using voice recognition software and may contain errors or omissions
[2020-07-01 15:34] VITALS: BP 170/53; PULSE 58; RESP 18; O2SAT 98
== END 2020-07-01 15:35 | disposition home or self-care (01) ==
LOC: SC.PAINP 14:38
PROVIDERS: PCP Emergency Medicine; Visit Provider Clinical Nurse Specialist Family Health
DX: M51.16 Intervertebral disc disorders with radiculopathy, lumbar region (principal); Z45.1 Encounter for adjustment and management of infusion pump; I25.10 Atherosclerotic heart disease of native coronary artery without angina pectoris; E78.5 Hyperlipidemia, unspecified; I10 Essential (primary) hypertension; I73.9 Peripheral vascular disease, unspecified; I65.29 Occlusion and stenosis of unspecified carotid artery; N40.0 Benign prostatic hyperplasia without lower urinary tract symptoms; M19.90 Unspecified osteoarthritis, unspecified site; Z90.49 Acquired absence of other specified parts of digestive tract; Z85.038 Personal history of other malignant neoplasm of large intestine; Z79.899 Other long term (current) drug therapy
CPT/HCPCS: 62370

== ENCOUNTER 2020-07-19 11:48 | Day surgery (SDC) | payer MEDICARE, SELFPAY ==
[2020-07-19 12:24] VITALS: BP 163/58; PULSE 57; RESP 18; TEMP 36.4; O2SAT 98; BMI 25.8
--- NOTE | 2020-07-19 13:03 | HMH.PMPROC ---
- Procedure Date: 07/19/20 Time: 13:03 Anesthesiologist:: Dez Evans MD Complications:: None Pre-procedure Diagnosis:: Generative disc disease of lumbar spine with lumbar radiculopathy symptoms Post-procedure Diagnosis:: Same Indications for Procedure:: Is a pleasant 80-year-old white male who we are treating for low back pain with lumbar radicular symptoms. He also has an active cancer diagnosis. He does have a colostomy in place. He has an intrathecal morphine pain pump currently going at 3.6 mg/day. He is not getting adequate pain relief. We will refill his pump and switch him to intrathecal Dilaudid today. This will be intrathecal Dilaudid 5 mg/mL and will start him at 0.4 mg/day. Arturo and urine drug screen are all appropriate he does have an antalgic gait. Motor strength of the lower extremities is 5/5. There is no gross sensory deficit. Procedure Details:: Pain pump refill informed consent was obtained and the risks and benefits of the procedure was explained to the patient. The patient was taken to the procedure room. The pump was interrogated. The area over the pump was prepped using ChloraPrep. The pump was accessed with a 22-gauge needle. Approximately 13 mL's of the intrathecal solution was withdrawn and discarded. The pump was then refilled with 20 mL's of intrathecal Dilaudid 5 mg/mL. After double catheter aspiration at the catheter access port, the pump was interrogated and the infusion was started at 0.4 mg/day. Is having problems with his PTC this was not initiated. The patient tolerated the procedure well with no complication. Plan and Disposition:: Follow-up with him in 1 week. We will reevaluate his symptoms at that time. Missed his intrathecal infusion if needed.
[2020-07-19 13:09] VITALS: BP 150/72; BP 151/74; PULSE 71; PULSE 77; RESP 18; O2SAT 99
[2020-07-19 13:20] VITALS: BP 148/50; PULSE 64; RESP 18; O2SAT 98
== END 2020-07-19 13:20 | disposition home or self-care (01) ==
LOC: SC.PAINP 11:52
PROVIDERS: PCP Emergency Medicine; Visit Provider Anesthesiology
DX: M51.16 Intervertebral disc disorders with radiculopathy, lumbar region (principal); Z45.1 Encounter for adjustment and management of infusion pump; Z85.038 Personal history of other malignant neoplasm of large intestine; I11.0 Hypertensive heart disease with heart failure; E78.5 Hyperlipidemia, unspecified; I50.9 Heart failure, unspecified; I65.9 Occlusion and stenosis of unspecified precerebral artery; Z88.6 Allergy status to analgesic agent; I25.10 Atherosclerotic heart disease of native coronary artery without angina pectoris; I27.20 Pulmonary hypertension, unspecified; N28.9 Disorder of kidney and ureter, unspecified; F41.9 Anxiety disorder, unspecified
CPT/HCPCS: 61070; 62370; C1772

== ENCOUNTER → 2020-07-25 11:03 | Outpatient (POV) | payer MEDICARE, SELFPAY ==
[2020-07-25 11:23] VITALS: BP 115/79; PULSE 74; RESP 18; TEMP 36.8; O2SAT 98; BMI 24.3
--- NOTE | 2020-07-25 12:25 | HMH.PMPROC ---
- Procedure Date: 07/25/20 Time: 12:25 Anesthesiologist:: Shakila Last APRN Complications:: None Pre-procedure Diagnosis:: Degenerative disc disease lumbar spine lumbar radiculopathy Post-procedure Diagnosis:: Same Indications for Procedure:: Patient is a pleasant 80-year-old white male who presents today for follow-up. Patient had intrathecal morphine replaced with Dilaudid. His pain is a 4 out of 10 however he was having shaking, nausea, sweating. He was given 0.2 mg dose of Dilaudid in the office and the symptoms resolved we will increase him today. Procedure Details:: Informed consent was obtained and the risk and benefits of the procedure were explained to the patient. The patient was taken to the procedure room where noninvasive monitoring was placed including noninvasive blood pressure cuff and pulse oximeter. Patient's pump was interrogated and reprogrammed. The infusion rate was 0.55 mg/day and his PTC is set up at 0.05 mg every 4 hours as needed.. The patient tolerated the procedure well. Plan and Disposition:: I will follow up with the patient 1 week reassess him at that time he has been instructed to call the office if he has any issues prior to his next appointment. Dr. Evans has reviewed this note and agrees with this plan of care. This note was dictated using voice recognition software and may contain errors or omissions
== END ==
PROVIDERS: PCP Emergency Medicine; Visit Provider Clinical Nurse Specialist Family Health
DX: M54.16 Radiculopathy, lumbar region (principal)
CPT/HCPCS: 62368

== ENCOUNTER → 2020-08-19 11:52 | Outpatient (POV) | payer MEDICARE, SELFPAY ==
--- NOTE | 2020-08-19 12:16 | HMH.PMPROC ---
- Procedure Date: 08/19/20 Time: 12:16 Anesthesiologist:: Shakila Last APRN Complications:: None Pre-procedure Diagnosis:: Degenerative disc disease lumbar spine lumbar radiculopathy Post-procedure Diagnosis:: Same Indications for Procedure:: Patient is a pleasant 80-year-old white male who presents today for follow-up and intrathecal pain pump adjustment. He is currently on Dilaudid 0.8 mg/day with his PTC's. Patient rates his pain a 4 out of 10 and states that it is quite unbearable. Patient is also having knee pain which he is seeing his primary care doctor for tomorrow. He denies side effects with medication. We will switch him to periodic flow today. Procedure Details:: Informed consent was obtained and the risk and benefits of the procedure were explained to the patient. The patient was taken to the procedure room where noninvasive monitoring was placed including noninvasive blood pressure cuff and pulse oximeter. Patient's pump was interrogated and reprogrammed. The infusion rate was put at a basal rate of 1 mg/day and 0.25 mg boluses every 6 hours. The patient tolerated the procedure well. Plan and Disposition:: I will follow up with the patient in 1 week reassess his symptoms at that time he has been instructed to call the office if he has any issues prior to his next appointment. Dr. Evans has reviewed this note and agrees with this plan of care. This note was dictated using voice recognition software and may contain errors or omissions
[2020-08-19 15:23] VITALS: BP 140/74; PULSE 74; RESP 18; O2SAT 98; BMI 25.0
== END ==
PROVIDERS: PCP Emergency Medicine; Visit Provider Clinical Nurse Specialist Family Health
DX: M51.16 Intervertebral disc disorders with radiculopathy, lumbar region (principal)
CPT/HCPCS: 62368

== ENCOUNTER → 2020-08-26 11:49 | Outpatient (POV) | payer MEDICARE, SELFPAY ==
--- NOTE | 2020-08-26 12:13 | P.CONS_ITS ---
[facility] Pain Management SOAP Note Subjective:: Pleasant 80-year-old white male who presents today for follow-up. Patient has an intrathecal pain pump at his last visit he was increased and changed to periodic flow he is doing much better rating his pain today 1 out of 10. His only pain is in his hip patient states that he is doing well with his current pain level. I did discuss with him if he continues to have hip pain we may move forward with some x-rays of his hip. ROS General: no recent weight change, no fever, no sleep disturbances Respiratory: no cough, no shortness of air, no recurring pulmonary infections Cardiovascular/Peripheral Vascular: No chest pain, No palpitations, no edema, no shortness of breath. Gastrointestinal: no new onset incontinence, normal bowel movements reported Genitourinary: no new onset incontinence Musculoskeletal: Bilateral hip pain Psychiatric: normal mood/ affect Neurological: [denies new onset weakness in extremities], [denies new onset balance issues] Objective:: physical Exam General: Alert and oriented x3, no acute distress, pleasant and cooperative, [on room air] Lungs: Resps E/U, Symmetrical chest expansion, Eyes: PERRL Musculoskeletal: Flexion and extension of lumbar spine somewhat guarded secondary to pain, deep tendon reflexes normal, strength in upper and lower extremities [5/5], [abnormal gait noted] Neurological: speech clear, enterprise services manager equal, no gross sensory deficits Assessment:: Degenerative disc disease lumbar spine lumbar radiculopathy Plan:: I will follow up with the patient at his next intrathecal pain pump refill and reprogram he has been instructed to call the office if he has any issues prior to his next appointment. Dr. Evans has reviewed this note and agrees with this plan of care. This note was dictated using voice recognition software and may contain errors or omissions [facility] History I have reviewed the patient's past medical history: Yes Medical History: Reports:: Anxiety, Arrhythmia, Atrial Fibrillation, Cancer, Carotid Stenosis, Congestive Heart Failure, Coronary Artery Disease, Heart Murmur, Hyperlipidemia, Hypertension, Myocardial Infarction, Palpitations, Peripheral Artery Disease, Valvular Heart Disease Denies:: Diabetes Mellitus Type 1, Diabetes Mellitus Type 2, Internal Pacemaker, Lung Disease, MRSA, Seizures *Have you ever received a pneumonia vaccine?: No *Have you received a flu vaccine this season?: Yes Other Medical History: Reports: Arthritis, Chemotherapy, Radiation Therapy, Sinus Problems, Other. Denies: Blood Transfusion Reaction Laterality Cases: Left: Other Other Surgeries: Yes: Cancer Surgery (colon - radiation), Cardiac Catheterizati on, Colonoscopy, Colon Resection, Colostomy, EGD, Other (right wrist sx). No: Pacemaker Amputation: No Fractures: No - *Social History Smoking Status: Never smoker Alcohol Intake: never Alcohol Intake Frequency:: other Substance Use Type: denies use *Occupational Status:: other Housing: house Household Members: none *Travel in the last 8 weeks: None - Psychiatric History Pschychiatric History:: Reports:: Anxiety Family Hx:: Other, Diabetes, Hypertension
[2020-08-26 12:20] VITALS: BP 121/71; PULSE 74; RESP 18; O2SAT 98; BMI 25.4
== END ==
PROVIDERS: Visit Provider Clinical Nurse Specialist Family Health
DX: M51.16 Intervertebral disc disorders with radiculopathy, lumbar region (principal)
CPT/HCPCS: 99212; G0463

== ENCOUNTER 2020-09-16 10:09 | Outpatient (RCR) | payer MEDICARE, SELFPAY ==
--- NOTE | 2020-09-16 10:36 | HMH.PTOPWND ---
Rehab Outpt Wound Evaluation Rehab OP Wound Evaluation Start: 09/16/20 10:13 Freq: Status: Active Protocol: Document 09/16/20 10:30 KIRK (Rec: 09/16/20 10:36 PHORGLORY [id number]) Electronically Signed By Pee Wiggins, PT 09/16/20 10:30 Subjective/History History History Pt is 80 yowm who presents with c/o B LE edema, worse on L LE, x ~ 1-2 mos. Pt is well known to this clinic and has responeded well to treatment in the past, but has difficulty with home program and treatment compliance. He has increased redness and copious drainage from the L lower leg this date. He has hx of rectal cancer with chemo and radiation. PMH: anxiety, A -fib, carotid stenosis, CHF. CAD, HL, HTN, MA, PAD. Subjective Subjective He reports pain on B feet 5/10 . 2/4 tenderness to palpation on L gaitor area. Lymphedema Eval Classification of Lymphedema Secondary Lymphedema Yes Stemmer's sign Stemmer's Sign yes Stage of Lymphedema Lymphedema stages Stage II (Pitting edema, increased fibrosis w/ decreased pitting) Skin Changes Dry Skin Yes Taut, Shiny Skin Yes Redness Yes Blisters Yes Wounds Yes Discoloration of Skin Yes Other Changes Yes Pain Scale Pain Scale (0-10) 5 Radiation Therapy Has received radiation therapy yes Chemo Therapy Has received chemo therapy yes Affected Extremities Areas Affected by Lymphedema/Edema Right Lower Extremity,Left Lower Extremity Manual Lymphatic Drainage Treatment Area MLD Treatment Area Right Lower Extremity,Left Lower Extremity Wound Problems/Impairments Impairments Problems/Impairmments Palpation Tenderness,Impaired Strength,Impaired Endurance, Impaired Transfers,Impaired Gait Pattern,Impaired Walking, Impaired Standing,Impaired Household Care,Impaired Stepping on Uneven Surface, Impaired Recreational Activit
== END 2020-09-16 10:15 | disposition home or self-care (01) ==
LOC: PT 10:09
PROVIDERS: PCP Emergency Medicine; Visit Provider Emergency Medicine
DX: I89.0 Lymphedema, not elsewhere classified (principal)
CPT/HCPCS: 97162

== ENCOUNTER → 2020-09-18 13:11 | Outpatient (POV) | payer MEDICARE, SELFPAY ==
[2020-09-18 13:30] VITALS: BP 121/40; PULSE 74; RESP 20; O2SAT 100; BMI 23.7
--- NOTE | 2020-09-27 14:52 | HMH.PAINSOAP ---
[facility] Pain Management SOAP Note Subjective:: Patient is a pleasant 80-year-old white male who we are treating for low back pain with lumbar radiculopathy symptoms with an intrathecal pain pump. He came today with increasing pain in both feet. He does have wounds on both feet which is currently being cared for by the wound care center. He has significant pain in both feet. We will start him on some tramadol to see if this will help with some of his pain symptoms which is not covered by his pain pump. Objective:: Alert and oriented x3 no acute distress. Patient seen in a wheelchair. He has significant swelling and redness of both lower extremities with wounds on both feet. Assessment:: Degenerative disc disease of lumbar spine with lumbar radiculopathy symptoms with lower extremity edema and swelling of both lower extremities with wounds on both feet Plan:: We will start him on some tramadol 50 mg 3 times a day to see if this will help some of his pain symptoms that is not covered by his pain pump. We will follow-up with him in the pain clinic. [facility] History Medical History: Reports:: Anxiety, Arrhythmia, Atrial Fibrillation, Cancer, Carotid Stenosis, Congestive Heart Failure, Coronary Artery Disease, Heart Murmur, Hyperlipidemia, Hypertension, Myocardial Infarction, Palpitations, Peripheral Artery Disease, Valvular Heart Disease Denies:: Diabetes Mellitus Type 1, Diabetes Mellitus Type 2, Internal Pacemaker, Lung Disease, MRSA, Seizures *Have you ever received a pneumonia vaccine?: No *Have you received a flu vaccine this season?: No Other Medical History: Reports: Arthritis, Chemotherapy, Radiation Therapy, Sinus Problems, Other. Denies: Blood Transfusion Reaction Laterality Cases: Left: Other Other Surgeries: Yes: Cancer Surgery (colon - radiation), Cardiac Catheterization, Colonoscopy, Colon Resection, Colostomy, EGD, Other (right wrist sx). No: Pacemaker Amputation: No Fractures: No - *Social History Smoking Status: Never smoker Alcohol Intake: never Alcohol Intake Frequency:: other Substance Use Type: denies use *Occupational Status:: retired Housing: house Household Members: none *Travel in the last 8 weeks: None - Psychiatric History Pschychiatric History:: Reports:: Anxiety Family Hx:: Other, Diabetes, Hypertension
== END ==
PROVIDERS: PCP Emergency Medicine; Visit Provider Anesthesiology
DX: M51.16 Intervertebral disc disorders with radiculopathy, lumbar region (principal); R60.1 Generalized edema; M79.89 Other specified soft tissue disorders; S91.301A Unspecified open wound, right foot, initial encounter; S91.302A Unspecified open wound, left foot, initial encounter
CPT/HCPCS: 99212; G0463

== ENCOUNTER → 2020-09-26 11:53 | Outpatient (POV) | payer MEDICARE, SELFPAY ==
--- NOTE | 2020-09-26 12:41 | HMH.VVPMSO ---
[facility] PM Virtual Visit SOAP Consent for virtual visit:: With the recent concerns about the COVID-19, we are trying to minimize exposure to you by shifting to telehealth appointments whenever possible. It restricts me from seeing you in person, but the trade off is protecting you during this pandemic. Can you see and hear me okay, and do you consent to this option? If not, I would be happy to see if we can reschedule your appointment in the future, when feasible. Has patient consented to this virtual visit?: Yes Subjective:: She is a pleasant 80-year-old white male who presents today for audio follow-up. Patient has an intrathecal pain pump. Patient rates his pain today 6 out of 10 states he is not doing well he was started on tramadol by Dr. Sanford. Patient states that he is unsure if this is helping or not. Patient at this time has wounds on his feet and is being taken care of by his son. We did try to contact his son however we did not get an answer. Patient I had a discussion in regards to medication along with pain management. Patient states he is also having prostate issues at this time. Objective:: Physical exam: Constitutional:in no acute distress Psychiatric:Alert and oriented x 3 Mood and affect: Mood normal, affect appropriate Respiratory: Breathing nonlabored, nondyspneic Cardiovascular: No reported edema observed Skin: No reported rashes Gait: Able to walk with assistive device Neurologic: Decreased sensation lower extremities Assessment:: Degenerative disc disease lumbar spine lumbar radiculopathy and back pain Plan:: We will see the patient back in the office when he is feeling better. He is to continue his tramadol we will continue to try to get a hold of his son. Dr. Evans has reviewed this note and agrees with this plan of care. This note was dictated using voice recognition software and may contain errors or omissions Time In:: 12:00 Time Out:: 12:10 [facility] History I have reviewed the patient's past medical history: Yes Medical History: Reports:: Anxiety, Arrhythmia, Atrial Fibrillation, Cancer, Carotid Stenosis, Congestive Heart Failure, Coronary Artery Disease, Heart Murmur, Hyperlipidemia, Hypertension, Myocardial Infarction, Palpitations, Peripheral Artery Disease, Valvular Heart Disease Denies:: Diabetes Mellitus Type 1, Diabetes Mellitus Type 2, Internal Pacemaker, Lung Disease, MRSA, Seizures *Have you ever received a pneumonia vaccine?: No *Have you received a flu vaccine this season?: No Other Medical History: Reports: Arthritis, Chemotherapy, Radiation Therapy, Sinus Problems, Other. Denies: Blood Transfusion Reaction Laterality Cases: Left: Other Other Surgeries: Yes: Cancer Surgery (colon - radiation), Cardiac Catheterization, Colonoscopy, Colon Resection, Colostomy, EGD, Other (right wrist sx). No: Pacemaker Amputation: No Fractures: No - *Social History Smoking Status: Never smoker Alcohol Intake: never Alcohol Intake Frequency:: other Substance Use Type: denies use *Occupational Status:: retired Housing: house Household Members: none *Travel in the last 8 weeks: None - Psychiatric History Pschychiatric History:: Reports:: Anxiety Family Hx:: Other, Diabetes, Hypertension
== END ==
PROVIDERS: PCP Emergency Medicine; Visit Provider Clinical Nurse Specialist Family Health
DX: M51.16 Intervertebral disc disorders with radiculopathy, lumbar region (principal)
CPT/HCPCS: 99212; G0463

== ENCOUNTER 2020-09-27 20:11 | Inpatient (IN) | payer MEDICARE, SELFPAY ==
[2020-09-27 20:13] VITALS: BP 133/42; PULSE 89; RESP 16; TEMP 36.8; O2SAT 99; BMI 25.0
[2020-09-27 20:33] VITALS: BP 126/94; PULSE 84; RESP 16; O2SAT 99
--- NOTE | 2020-09-27 20:37 | HMH.EDGENADL ---
ED Disposition Clinical Impression: TAHIR (acute kidney injury), History of colon cancer, Edema of both lower extremities, Lumbar degenerative disc disease, Rectal mass, Hydroureteronephrosis UTI (urinary tract infection) Qualifiers: Urinary tract infection type: site unspecified Hematuria presence: without hematuria Qualified Code(s): N39.0 - Urinary tract infection, site not specified Anemia Qualifiers: Anemia type: unspecified type Qualified Code(s): D64.9 - Anemia, unspecified Osteopenia Qualifiers: Osteopenia location: lumbar spine Qualified Code(s): M85.88 - Other specified disorders of bone density and structure, other site DVT (deep venous thrombosis) Qualifiers: DVT location: lower extremity Affected thrombotic vein of extremity: unspecified vein of extremity Chronicity: acute Laterality: left Qualified Code(s): I82.402 - Acute embolism and thrombosis of unspecified deep veins of left lower extremity Disposition: Admitted As Inpatient Condition on Discharge: Serious - Critical Care Critical Care Time: No Attestation: On 09/27/20, the high probability of a clinically significant, sudden or life threatening deterioration of the following system(s) required my full and direct attention, intervention and personal management. The time I documented below is in addition to time spent performing reported procedures but includes the following listed in this critical care notation. Medical Decision Making - Medical Records Medical records reviewed: Yes: I reviewed the patient's medical records. - Arturo Inquiry Pt receiving controlled substance: No Vital Signs: 09/27/20 20:13 Temperature 98.3 F Temperature Source Oral Pulse Rate [Left Radial] 89 Respiratory Rate 16 Blood Pressure [Right Arm] 133/42 L Blood Pressure Mean [Right Arm] 72 Blood Pressure Source [Right Arm] Automatic Cuff Blood Pressure Position [Right Arm] Supine 02 Sat by Pulse Oximetry 99 Oxygen Delivery Method Room Air - Lab Data Lab results reviewed: Yes: I reviewed the patient's lab results. Lab Results 09/27/20 21:03: WBC 16.9 H, RBC 2.59 L, Hgb 7.5 L*, Hct 24.5 L, MCV 94.6 H, MCH 29.0, MCHC 30.7 L, RDW 19.1 H, Plt Count 444 H, MPV 7.6, Neut % (Auto) 91.7 H, Lymph % (Auto) 3.3 L, Upson % (Auto) 4.3, Eos % (Auto) 0.5, Baso % (Auto) 0.2, Neut # (Auto) 15.5 H, Lymph # (Auto) 0.6 L, Upson # (Auto) 0.7, Eos # (Auto) 0.1, Baso # (Auto) 0.0, Total Counted 100, Neutrophils % (Manual) 94 H, Band Neutrophils % 1.0, Lymphocytes % (Manual) 3 L, Monocytes % (Manual) 1 L, Eosinophils % (Manual) 1, Platelet Estimate Normal, Hypochromasia 2+, Poikilocytosis 1+, Anisocytosis 1+, Ovalocytes 1+ 09/27/20 21:03: Sodium 135 L, Potassium 5.2 H, Chloride 101, Carbon Dioxide 24, Anion Gap 15.2 H, BUN 52 H, Creatinine 3.40 H, Estimated Creat Clear 18, Estimated GFR 18 L*, Est GFR ( Amer) 21 L, Glucose 114 H, Calcium 9.5, Total Bilirubin 0.6, AST 31, ALT 16, Alkaline Phosphatase 132 H, C-Reactive Protein 168.2 H, Total Protein 6.8, Albumin 3.5, Globulin 3.3 H, Albumin/Globulin Ratio 1.1, TSH 1.84, Thyroxine (T4) 8.0 09/27/20 21:03: ESR > 140 H 09/27/20 21:36: Urine Color Yellow, Urine Appearance Turbid, Urine pH 6.0, Ur Specific [place] 1.020, Urine Protein 2+, Urine Glucose (UA) Negative, Urine Ketones Negative, Urine Blood 3+, Urine Nitrate Negative, Urine Bilirubin Negative, Urine Urobilinogen 0.2, Ur Leukocyte Esterase 3+ A, Urine RBC 10-20, Urine WBC Tntc Result diagrams: 09/27/20 21:03 09/27/20 21:03 Orders (Tests/Meds): ED MEDICATIONS Generic Name Dose Route Start Last Admin Trade Name Freq PRN Reason Stop Dose Admin Sodium Chloride 1,000 mls @ 999 mls/hr 09/27/20 20:45 09/27/20 21:25 Sod Chlor 0.9% 1000ml Bag IV 09/27/20 21:45 999 mls/hr .Q1H1M ALTON Administration Ceftriaxone Sodium 1 gm/ 50 mls @ 100 mls/hr 09/27/20 22:15 09/27/20 22:17 Sodium Chloride IV 10/11/20 22:14 100 mls/hr Q24H ALTON Administration Protocol Di
[2020-09-27 21:02] VITALS: BP 119/68; PULSE 87; RESP 18; O2SAT 100
[2020-09-27 21:20] LABS: Basophils % 0.2 % (0.1-2.0); Eosinophils # 0.1 K/mm3 (0.0-0.4); Monocytes # 0.7 K/mm3 (0.1-1.0); Neutrophils # 15.5 K/mm3 (1.8-7.8); Red Cell Distribution Width 19.1 % (11.5-17.5)
[2020-09-27 21:24] LABS: Alanine Aminotransferase 16 U/L (12-78); Albumin Level 3.5 g/dl (3.5-5.0); Albumin/Globulin Ratio 1.1 (1.1-1.8); Alkaline Phosphatase 132 U/L (38-126); Anion Gap 15.2 mEq/L (5-15); Aspartate Amino Transferase 31 U/L (17-59); Bilirubin,Total 0.6 mg/dl (0.2-1.3); Blood Urea Nitrogen 52 mg/dl (9-20); Calcium 9.5 mg/dl (8.4-10.2); Carbon Dioxide 24 mmol/L (22.0-30.0); Chloride 101 mmol/L (98-107); Creatinine Clearance Estimated 18 mL/min (50-200); Estimated Glomerular Filt Rate 18 ml/min (>60); GFR (African American) 21 ML/MIN (>60); Globulin 3.3 g/dL (1.3-3.2); Glucose 114 mg/dl (74-100); Potassium 5.2 mmoL/L (3.5-5.1); Sodium 135 mmol/L (136-145); Total Protein,Serum 6.8 g/dl (6.3-8.2)
[2020-09-27 21:25] LABS: Eosinophils % 0.5 % (0.1-12.0); Lymphocytes # 0.6 K/mm3 (0.7-4.5); Lymphocytes % 3.3 % (10-50); Mean Corpuscular HGB Conc 30.7 g/dL (31.8-35.4); Mean Corpuscular Volume 94.6 fl (80-94); Mean Platelet Volume 7.6 fl (7.4-10.4); Monocytes % 4.3 % (1.7-9.3); Neutrophils % 91.7 % (37.0-80.0); Platelet Count 444 K/mm3 (142-424); Red Blood Count 2.59 M/mm3 (4.60-6.20); White Blood Count 16.9 K/mm3 (4.8-10.8)
[2020-09-27 21:31] LABS: C-Reactive Protein 168.2 mg/L (0-4)
[2020-09-27 21:34] LABS: Hematocrit 24.5 % (42.0-52.0); Hemoglobin 7.5 g/dL (14.1-18.0); MANUAL DIFFERENTIAL MANUAL DIFFERENTIAL (MANUAL DIFF)
--- NOTE | 2020-09-27 21:35 | CT_ITS ---
PROCEDURE: CT ABDOMEN PELVIS WO CON CLINICAL INDICATION: pain Lower back pain COMPARISON: CT CT ABDOMEN PELVIS WO/W CON from 10/12/2019 TECHNIQUE: Axial images obtained with sagittal and coronal reformats. All CT scans at the facility use one or more dose reduction, viz: automated exposure control, ma/kV adjustment per patient size (including targeted exams where dose is matched to indication, i.e. head), or iterative reconstruction technique. FINDINGS: LOWER THORAX: No acute finding ABDOMEN & PELVIS: Evaluation of the abdomen pelvis is limited without IV and oral contrast. No focal liver lesion on this unenhanced exam. Gallbladder is contracted with mildly thickened wall. The spleen and adrenal glands are unremarkable. The pancreas has an unremarkable unenhanced appearance. There is bilateral hydronephrosis and hydroureter secondary to pelvic mass. Status post left hemicolectomy with left upper quadrant colostomy. There is a large pelvic mass which may be arising from the rectum with irregular margins and heterogeneous attenuation measuring up to 15 by 8 by 11 cm cephalad caudad, transverse, and AP respectively extending up to the L4-5 level. There is diffuse bladder wall thickening. The large pelvic/rectal mass appears invade the posterior wall the urinary bladder with a soft tissue mass extending into the urinary bladder. This soft tissue mass measures approximately 3 cm. There is left-sided inguinal adenopathy with nodes measuring up to 2.5 by 2 cm. Small nodes are present also in the retroperitoneum. There is mild diffuse thickening of the urinary bladder wall. Umbilical hernia is present containing loops of small bowel. No evidence of bowel obstruction. The prostate gland cannot be distinguished from the rectal mass. Surgical clips are present in the rectal region. Degenerative changes are present in the lumbar spine. Epidural pain pump noted. There is mild diffuse stranding of the subcutaneous fat of the lower abdomen and left thigh. IMPRESSION: 1. Large pelvic rectal mass as described above suspicious for recurrence neoplasm with invasion of the urinary bladder causing bilateral hydroureteronephrosis. 2. Left sided inguinal adenopathy. 3. Diffuse bladder wall thickening which could be seen with cystitis. 4. Skin thickening and subcutaneous fat stranding within the left lower extremity/left thigh which could be related to lymphatic or venous blockage.. Consider left lower extremity venous Doppler. 5. Umbilical hernia containing loops of small bowel without obstruction Dictated by: Praveen Craig MD 09/29/2020 13:02 Praveen Craig MD in [place] 09/29/2020 13:02
--- NOTE | 2020-09-27 21:35 | CT_ITS ---
PROCEDURE: CT LUMBAR SPINE WO CON CLINICAL HISTORY: pain COMPARISON: No exams were available for comparison TECHNIQUE: Axial images obtained with sagittal and coronal reformats. All CT scans at the facility use one or more dose reduction, viz: automated exposure control, ma/kV adjustment per patient size (including targeted exams where dose is matched to indication, i.e. head), or iterative reconstruction technique. FINDINGS: There is marked generalized osteopenia. There is a non recent compression fracture of L5. There is prominent anterior osteophytic spurring throughout the entire lumbar spine with fusion of anterior osteophytes from T12 through L2. There is a small to moderate size right paracentral disc protrusion at the L2-3 level. There is diffuse disc bulge at the L3-4 level. There prominent hypertrophic facet changes L2-3 through L5-S1. There is a nerve stimulator implant in the soft tissues right lower back with a stimulator electrode extending up the a final canal to the T11-12 level. There is a large mass in the lower pelvis posteriorly it appears to invade and somewhat distort the floor of urinary bladder. This will be described on the CT abdomen pelvis report. IMPRESSION: Marked generalized osteopenia, multilevel degenerate changes with fusion of the prominent osteophytic spurring at levels T12 through L3 with old compression fracture L5. Retro pelvic and retro bladder mass as noted Dictated by: Dr. Ulises Morin MD 09/28/2020 15:05 Dr. Ulises Morin MD in [place] 09/28/2020 15:05
--- NOTE | 2020-09-27 21:35 | CT_ITS ---
PROCEDURE: CT HEAD/BRAIN WO CON CLINICAL INDICATION: pain COMPARISON: CT CT HEAD/BRAIN WO CON from 04/27/2019 TECHNIQUE: Axial images obtained. All CT scans at the facility use one or more dose reduction, viz: automated exposure control, ma/kV adjustment per patient size (including targeted exams where dose is matched to indication, i.e. head), or iterative reconstruction technique. FINDINGS: No midline shift, mass effect, intracranial hemorrhage, hydrocephalus, or extra-axial fluid collection is evident. The sylvian fissures and cortical sulci are mildly prominent. There are minimal periventricular hypodensities consistent with chronic ischemic white matter changes. The calvarium has an unremarkable appearance. No mastoid effusion. No sinus air-fluid level. IMPRESSION: Minimal chronic white matter changes, findings of mild age-appropriate cortical atrophy, no acute intracranial pathology noted Dictated by: Dr. Ulises Morin MD 09/28/2020 08:56 Dr. Ulises Morin MD in [place] 09/28/2020 08:56
--- NOTE | 2020-09-27 21:41 | PC.NURSE ---
critical H&H called from lab and given to Dr Chen
[2020-09-27 21:42] LABS: Microscopic, Urine URINE MICROSCOPIC (MICROSCOPIC)
[2020-09-27 21:48] LABS: Appearance,Urine TURBID (Clear); Bilirubin,Urine Negative (Negative); Blood, Urine 3+ (Negative); Color,Urine YELLOW (Yellow); Glucose,Urine (UA) Negative (Negative); Ketones,Urine Negative (Negative); Leukocyte Esterase,Urine 3+ (Negative); Nitrate,Urine Negative (Negative); Protein,Urine 2+ (Negative); Urobilinogen,Urine 0.2 EU/dl (0.2)
[2020-09-27 21:53] LABS: WBC,Urine TNTC #/hpf (0-3)
[2020-09-27 21:53] LABS: Eosinophils % 1 % (0-3); Lymphocytes % 3 % (10-50); Monocytes % 1 % (2-9); Neutrophils % 94 % (42-76); Total Cells Counted 100
[2020-09-27 21:56] LABS: Anisocytosis 1+; Hypochromasia 2+
[2020-09-27 21:57] LABS: Thyroid Stimulating Hormone 1.84 uIU/mL (0.465-4.68)
[2020-09-27 21:58] LABS: Ovalocytes 1+; Platelet Estimate Normal; Poikilocytosis 1+
[2020-09-27 22:00] VITALS: BP 128/72; PULSE 89; RESP 16; O2SAT 99
[2020-09-27 22:01] LABS: Erythrocyte Sedimentation Rate > 140 mm/hr (0-20)
[2020-09-27 23:15] VITALS: BP 119/52; PULSE 86; RESP 16; O2SAT 100
[2020-09-28] VITALS (8 sets, daily range): BP systolic 106–147; BP diastolic 40–64; PULSE 67–84; RESP 16–18; TEMP 36.3–36.8; O2SAT 98–100; BMI 24.3
--- NOTE | 2020-09-28 01:13 | PC.NURSE ---
Spoke with Matheus,Pharmacist inregards to lovenox dosing. 70mg sq BID recommended dose.
--- NOTE | 2020-09-28 01:51 | PC.NURSE ---
pt arrived to floor via wheelchair
--- NOTE | 2020-09-28 02:02 | PC.NURSE ---
not addressing Hgb and Hct at this time. per ER staff.
--- NOTE | 2020-09-28 04:15 | PC.NURSE ---
Pt c/o dull back pain after arrival to floor. Pt states he has been having pain for a couple of weeks. Pt has had 25 cc urine output. Urine was cloudy. Pt was asked if he has any prostate problems. Pt stated that he does and has had difficulty with urination at times. NS is infusing @ 50 ml/hr. VSS at this time. Pt remains on RA. Lungs are diminished. BS active. Will continue to monitor.
[2020-09-28 06:47] LABS: Basophils % 0.2 % (0.1-2.0); Eosinophils # 0.1 K/mm3 (0.0-0.4); Eosinophils % 0.5 % (0.1-12.0); Hematocrit 24.2 % (42.0-52.0); Lymphocytes # 0.5 K/mm3 (0.7-4.5); Lymphocytes % 3.6 % (10-50); Mean Corpuscular HGB Conc 29.5 g/dL (31.8-35.4); Mean Corpuscular Hemoglobin 28.6 pg (27.0-31.2); Mean Corpuscular Volume 96.9 fl (80-94); Mean Platelet Volume 6.9 fl (7.4-10.4); Monocytes # 0.8 K/mm3 (0.1-1.0); Monocytes % 5.4 % (1.7-9.3); Neutrophils # 13.3 K/mm3 (1.8-7.8); Neutrophils % 90.4 % (37.0-80.0); Platelet Count 406 K/mm3 (142-424); Red Cell Distribution Width 18.3 % (11.5-17.5); White Blood Count 14.7 K/mm3 (4.8-10.8)
[2020-09-28 07:02] LABS: Hemoglobin 7.2 g/dL (14.1-18.0)
[2020-09-28 07:03] LABS: MANUAL DIFFERENTIAL MANUAL DIFFERENTIAL (MANUAL DIFF)
[2020-09-28 07:04] LABS: Chloride 105 mmol/L (98-107); Potassium 5.2 mmoL/L (3.5-5.1); Sodium 134 mmol/L (136-145)
[2020-09-28 07:07] LABS: Blood Urea Nitrogen 54 mg/dl (9-20); Creatinine Clearance Estimated 15 mL/min (50-200); Estimated Glomerular Filt Rate 15 ml/min (>60); GFR (African American) 18 ML/MIN (>60)
[2020-09-28 07:08] LABS: Anion Gap 12.2 mEq/L (5-15); Calcium 9.4 mg/dl (8.4-10.2); Carbon Dioxide 22 mmol/L (22.0-30.0); Glucose 96 mg/dl (74-100)
--- NOTE | 2020-09-28 07:29 | PC.NURSE ---
Pt c/o not being able to urinate. New orders placed. 14 fr Coude placed. Urine, cloudy and purulent to blood tinged. Critical labs Hgb and creatinine. notified.
--- NOTE | 2020-09-28 08:00 | XR_ITS ---
PROCEDURE: XR CHEST PORTABLE CLINICAL HISTORY: sob COMPARISON: CT CT CHEST W CON from 04/18/[address] ABDOMEN PELVIS WO CON from 09/27/2020 FINDINGS: The cardiomediastinal silhouette and pulmonary vascularity are within normal limits. The lungs are clear without infiltrates, suspicious nodules, or pleural effusions. Lucency is noted along the right lateral hemithorax and is felt to be due to artifact. Calcified granuloma left lower lobe. Bony exostosis is present along the proximal humerus on the left at the humeral neck region. IMPRESSION: No acute findings. Dictated by: Praveen Craig MD 09/29/2020 08:26 Praveen Craig MD in [place] 09/29/2020 08:26
[2020-09-28 08:16] LABS: Lymphocytes % 3 % (10-50); Monocytes % 6 % (2-9); Neutrophils % 91 % (42-76); Total Cells Counted 100
[2020-09-28 08:20] LABS: Anisocytosis 1+; Hypochromasia 1+; Platelet Estimate Normal; Poikilocytosis 1+
--- NOTE | 2020-09-28 09:23 | ECG_ITS ---
APPROVED REPORT Exam: Resting ECG HR:75 bpm ECG Measurements Heart Rate 75 AXES MN 158 P -5 QRSd 88 QRS -22 QT 384 T 46 QTc 428 Conclusion Normal sinus rhythm with sinus arrhythmia Late r wave progression - unchanged from prior Abnormal ECG Electronically signed by : Gonsalo Bray, 09/28/2020 14:38:54
--- NOTE | 2020-09-28 11:48 | P.CONPHA_ITS ---
[facility] Pharmacy VTE Monitoring - Patient Demographics Admission date: 09/28/20 Report Date: 09/28/20 Time: 11:48 Allergies/Adverse Reactions: Patient Allergies diclofenac [From ARTHROTEC] Allergy (Intermediate, Verified 09/18/20 13:27) I-HIVES misoprostol [From ARTHROTEC] Allergy (Intermediate, Verified 09/18/20 13:27) I-HIVES Height: 1.7 m Weight: 70.307 kg Patient Problems: Current Active Problems (Last Updated 07/05/19 @ 10:15 by Caroline Carbajal RN) TAHIR (acute kidney injury) (Acute) UTI (urinary tract infection) (Acute) Osteopenia (Acute) Lumbar degenerative disc disease (Acute) Hydroureteronephrosis (Acute) DVT (deep venous thrombosis) (Acute) Edema of both lower extremities (Acute) Anemia (Acute) History of colon cancer (Acute) Rectal mass (Acute) - VTE Risk Labs: VTE Related Lab Results Hgb 7.2 g/dL (14.1-18.0) L* 09/28/20 06:33 Hct 24.2 % (42.0-52.0) L 09/28/20 06:33 Plt Count 406 K/mm3 (142-424) 09/28/20 06:33 BUN 54 mg/dl (9-20) H 09/28/20 06:33 Creatinine 4.00 mg/dl (0.66-1.25) H 09/28/20 06:33 Estimated Creat Clear 15 mL/min (50-200) 09/28/20 06:33 Was VTE Risk Assessment Performed: No VTE Risk Level: Moderate Risk - Prophylaxis VTE Prophylaxis Ordered?: Yes Types of VTE Prophylaxis: Pharmacological Pharmacologic Type: Enoxaparin
--- NOTE | 2020-09-28 11:50 | HMH.PHAINT ---
HOME MEDICATIONS RECONCILED FROM PHARMACY FILL LIST. HOME MEDICATIONS WILL NOT BE RESTARTED AT THIS TIME PER SANDEEP.
--- NOTE | 2020-09-28 16:01 | PC.NURSE ---
pt has done well today. per md Chen- leave unna boots in place because they were just placed yesterday. pt ambulated with one assist to chair w/o issue. call light within reach. vss. will cont. to monitor.
[2020-09-28 16:34] LABS: Microscopic,Cath URINE MICROSCOPIC (MICROSCOPIC)
--- NOTE | 2020-09-28 17:11 | PC.NURSE ---
carmelina dietz aprn aware of bed availability for pt transfer. and aware of blood cultures. she states she will put discharge order in and TO HOLD blood.
--- NOTE | 2020-09-28 17:21 | HMH.HPDC ---
General - General Admission date:: 09/28/20 Discharge date: 09/28/20 *Admission Date: 09/28/20 *Chief complaint: abd pain *History of present illness: 80 yr old male presents to ed with c/o Ismael leg swelling and unable to urinate.pt with hx of rectal cancer with surg at about 3 yrs ago - has colostomy - on chemo pill - pt uncertain as last time saw - pt with dec po intake and has chronic swollen leg and has seen lymphedema clinic - no vomiting. Pt admitted r/t TAHIR cre 4 and large pelvic/rectal mass. [facility] History I have reviewed the patient's past medical history: Yes Medical History: Reports:: Anxiety, Arrhythmia, Atrial Fibrillation, Cancer, Carotid Stenosis, Congestive Heart Failure, Coronary Artery Disease, Heart Murmur, Hyperlipidemia, Hypertension, Myocardial Infarction, Palpitations, Peripheral Artery Disease, Valvular Heart Disease Denies:: Diabetes Mellitus Type 1, Diabetes Mellitus Type 2, Internal Pacemaker, Lung Disease, MRSA, Seizures *Have you ever received a pneumonia vaccine?: Yes *Have you received a flu vaccine this season?: No Other Medical History: Reports: Anemia, Arthritis, Chemotherapy, Radiation Therapy, Sinus Problems, Other. Denies: Blood Transfusion Reaction Laterality Cases: Left: Other Other Surgeries: Yes: Cancer Surgery, Cardiac Catheterization, Colonoscopy, Colon Resection, Colostomy, EGD, Other (right wrist sx). No: Pacemaker Amputation: No Fractures: No - *Social History Last grade of school completed: High school graduate Smoking Status: Never smoker Alcohol Intake: current Alcohol Intake Frequency:: a few times a month Substance Use Type: denies use *Occupational Status:: retired Housing: house Household Members: none *Travel in the last 8 weeks: None - Psychiatric History Pschychiatric History:: Reports:: Anxiety Family Hx:: Anemia, Cancer, Coronary Artery Disease, Hyperlipidemia, Hypertension, Kidney Disease Review of Systems - Review of Systems Review of systems:: pertinent systems reviewed and negative unless documented below - Constitutional Reports fatigue, Denies body ache(s) - Eyes Denies change in vision - ENT Denies bleeding gums - *Cardiovascular Reports leg swelling, Denies chest pain at rest - *Respiratory Denies chest congestion - *Gastrointestinal Denies nausea, Denies vomiting - *Genitourinary Reports difficulty urinating, Reports urinary hesitancy, Reports urinary urgency - *Musculoskeletal Denies joint pain - Integumentary/Breasts Denies rash - *Neurologic Reports weakness, Denies abnormal hearing, Denies dizziness, Denies localized weakness, Denies seizure-like activity - Psychiatric Denies lack of enjoyment - Endocrine Denies excessive sweating - Hematologic/Lymphatic Denies easy bruising - Allergic/Immunologic Denies GI upset with certain foods Exam Vital signs and Labs for Last 24 Hours: Temp Pulse Resp BP Pulse Ox 97.3 F L 74 16 106/40 L 98 09/28/20 16:00 09/28/20 16:00 09/28/20 16:00 09/28/20 16:00 09/28/20 16:00 Laboratory Results - last 24 hr 09/27/20 21:03: WBC 16.9 H, RBC 2.59 L, Hgb 7.5 L*, Hct 24.5 L, MCV 94.6 H, MCH 29.0, MCHC 30.7 L, RDW 19.1 H, Plt Count 444 H, MPV 7.6, Neut % (Auto) 91.7 H, Lymph % (Auto) 3.3 L, [place] % (Auto) 4.3, Eos % (Auto) 0.5, Baso % (Auto) 0.2, Neut # (Auto) 15.5 H, Lymph # (Auto) 0.6 L, [place] # (Auto) 0.7, Eos # (Auto) 0.1, Baso # (Auto) 0.0, Total Counted 100, Neutrophils % (Manual) 94 H, Band Neutrophils % 1.0, Lymphocytes % (Manual) 3 L, Monocytes % (Manual) 1 L, Eosinophils % (Manual) 1, Platelet Estimate Normal, Hypochromasia 2+, Poikilocytosis 1+, Anisocytosis 1+, Ovalocytes 1+ 09/27/20 21:03: Sodium 135 L, Potassium 5.2 H, Chloride 101, Carbon Dioxide 24, Anion Gap 15.2 H, BUN 52 H, Creatinine 3.40 H, Estimated Creat Clear 18, Estimated GFR 18 L*, Est GFR ( Amer) 21 L, Glucose 114 H, Calcium 9.5, Total Bilirubin 0.6, AST 31, ALT 16, Alkaline Phosphatase 132 H, C
--- NOTE | 2020-09-28 17:55 | PC.NURSE ---
REPORT GIVEN TO BALDOMERO VERA AT .
[2020-09-28 18:10] LABS: Appearance,Urine/Cath CLOUDY (Clear); Bilirubin,Cath Negative (Negative); Blood, Urine/Cath 3+ (Negative); Color,Urine/Cath YELLOW (Yellow); Glucose,Urine/Cath (UA) Negative (Negative); Ketones,Urine/Cath Negative (Negative); Leukocyte Esterase,Cath 2+ (Negative); Nitrate,Cath Negative (Negative); Protein,Urine/Cath 3+ (Negative); Urobilinogen,Cath 0.2 EU/dl (0.2)
[2020-09-28 18:42] LABS: Bacteria,Urine/Cath TRACE /lpf; WBC,Urine/Cath TNTC #/hpf (0-3)
--- NOTE | 2020-09-28 18:46 | PC.NURSE ---
GRIFFIN WAS NOTIFIED AND STATED WHEN THE AMBULANCE GETS BACK FROM [place] THEY WILL BE UP HERE TO GET PT FOR TRANSFER.
== END 2020-09-28 19:00 | disposition short-term general hospital (02) | DRG 683 ==
LOC: ER 20:45 → 2ND 22:55
PROVIDERS: Admitting Provider Emergency Medicine; Emergency Provider Emergency Medicine; PCP Emergency Medicine; Visit Provider Emergency Medicine
DX: N17.9 Acute kidney failure, unspecified (principal); N39.0 Urinary tract infection, site not specified; I82.402 Acute embolism and thrombosis of unspecified deep veins of left lower extremity; C20 Malignant neoplasm of rectum; M85.80 Other specified disorders of bone density and structure, unspecified site; Z93.3 Colostomy status; I89.0 Lymphedema, not elsewhere classified; F41.9 Anxiety disorder, unspecified; I48.91 Unspecified atrial fibrillation; I65.29 Occlusion and stenosis of unspecified carotid artery; I50.9 Heart failure, unspecified; R19.00 Intra-abdominal and pelvic swelling, mass and lump, unspecified site; I25.10 Atherosclerotic heart disease of native coronary artery without angina pectoris; E78.5 Hyperlipidemia, unspecified; I11.0 Hypertensive heart disease with heart failure; I25.2 Old myocardial infarction; I73.9 Peripheral vascular disease, unspecified; D63.0 Anemia in neoplastic disease; M85.88 Other specified disorders of bone density and structure, other site
CPT/HCPCS: 36415; 70450; 71045; 72131; 74176; 80048; 80053; 81001; 83605; 84436; 84443; 85007; 85025; 85651; 86140; 86850; 87040; 87077; 87086; 87088; 87186; 93005; 96365; 96367; 96372; 96375; 99212; 99284; G0463; U0003

== ENCOUNTER 2020-10-04 12:05 | Day surgery (SDC) | payer MEDICARE, SELFPAY ==
[2020-10-04 12:07] VITALS: BP 158/60; PULSE 60; RESP 18; TEMP 35.9; O2SAT 99; BMI 23.5
[2020-10-04 12:25] VITALS: BP 175/71; PULSE 69; RESP 18; O2SAT 98
[2020-10-04 12:32] VITALS: BP 182/74; PULSE 69; RESP 18; O2SAT 98
--- NOTE | 2020-10-04 12:39 | HMH.PMPROC ---
- Procedure Date: 10/04/20 Time: 12:39 Anesthesiologist:: Dez Evans MD Complications:: None Pre-procedure Diagnosis:: Degenerative disc disease of lumbar spine with lumbar radiculopathy symptoms with lower extremity edema and cellulitis Post-procedure Diagnosis:: Same Indications for Procedure:: Patient is a pleasant 80-year-old white male who we have been treating for low back pain with lumbar radiculopathy symptoms. He was recently admitted to with lower extremity edema and cellulitis. While he was in the hospital his pump ran dry. He has been off of his intrathecal medication for 1 week. He was supplemented with some oral medications in the interim. We will refill his pump today with intrathecal Dilaudid. We will reduce his dose by 50%. Arturo and drug screen are all appropriate [facility] [phone]. He is in a wheelchair. He does have some decrease of edema of the lower extremities. He still has difficulty with walking and movement and he also has some sensory deficits however overall he is unchanged neurologically. Procedure Details:: Intrathecal pain pump refill informed consent was obtained and the risks and benefits of the procedure was explained to the patient. The patient was taken to the procedure room. The pump was interrogated. The area over the pump was prepped using ChloraPrep. The pump was accessed with a 22-gauge needle. Approximately 0 mL's of the intrathecal solution was withdrawn and discarded. The pump was then refilled with 20 mL's of intrathecal Dilaudid 5 mg/mL. The pump was interrogated and the infusion was decreased to 1 mg/day. PTC was also decreased to 0.125 mg up to 4 times a day. The patient tolerated the procedure well with no complication. Plan and Disposition:: We decreased his dose to 50%. We will follow-up with him in 1 week. We will reevaluate his symptoms at that time. I did tell him not to take any oral narcotic medications.
[2020-10-04 12:45] VITALS: BP 179/68; PULSE 64; RESP 18; O2SAT 99
== END 2020-10-04 12:45 | disposition home or self-care (01) ==
LOC: SC.PAINP 12:06
PROVIDERS: PCP Emergency Medicine; Visit Provider Anesthesiology
DX: M51.16 Intervertebral disc disorders with radiculopathy, lumbar region (principal); R60.0 Localized edema; L03.119 Cellulitis of unspecified part of limb; Z45.1 Encounter for adjustment and management of infusion pump; Z85.038 Personal history of other malignant neoplasm of large intestine; I10 Essential (primary) hypertension; E78.5 Hyperlipidemia, unspecified; I25.10 Atherosclerotic heart disease of native coronary artery without angina pectoris; R00.1 Bradycardia, unspecified; Z88.8 Allergy status to other drugs, medicaments and biological substances
CPT/HCPCS: 62370

== ENCOUNTER → 2020-10-07 16:03 | Outpatient (CLI) | payer MEDICARE, SELFPAY ==
[2020-10-07 16:05] LABS: Microscopic,Cath URINE MICROSCOPIC (MICROSCOPIC)
[2020-10-07 16:14] LABS: Appearance,Urine/Cath CLEAR (Clear); Bilirubin,Cath Negative (Negative); Blood, Urine/Cath 2+ (Negative); Color,Urine/Cath YELLOW (Yellow); Glucose,Urine/Cath (UA) Negative (Negative); Ketones,Urine/Cath Negative (Negative); Leukocyte Esterase,Cath 2+ (Negative); Nitrate,Cath Negative (Negative); Protein,Urine/Cath 2+ (Negative); Specific Gravity, Urine/Cath 1.015 (1.005-1.030); Urobilinogen,Cath 0.2 EU/dl (0.2)
[2020-10-07 16:33] LABS: Bacteria,Urine/Cath 1+ /lpf; Squamous Epithelial Ur./Cath Occasional #/hpf (0-5)
== END ==
PROVIDERS: Visit Provider Emergency Medicine
DX: R82.90 Unspecified abnormal findings in urine (principal); Z97.8 Presence of other specified devices
CPT/HCPCS: 81001; 87086

== ENCOUNTER → 2020-10-11 10:08 | Outpatient (POV) | payer MEDICARE, SELFPAY ==
--- NOTE | 2020-10-11 11:06 | HMH.PMPROC ---
- Procedure Date: 10/11/20 Time: 11:06 Anesthesiologist:: Dez Evans MD Complications:: None Pre-procedure Diagnosis:: Disc disease of lumbar spine with lumbar radiculopathy symptoms and lower extremity edema with cellulitis with increasing pain Post-procedure Diagnosis:: Same Indications for Procedure:: Patient is a pleasant 80-year-old white male who we are treating for low back pain with lumbar radiculopathy symptoms. We recently refilled his intrathecal Dilaudid pain pump. He was having some pain which is increased as of yesterday. We will increase his intrathecal Dilaudid infusion as we decreased him at his last refill since he was pump was emptied previously. Procedure Details:: Pain pump adjustment and reprogramming Informed consent was obtained the risk and benefits of the procedure were explained to the patient. Patient was taken the procedure room. The was interrogated. Intrathecal Dilaudid infusion was switched back to constant flow and increase to 1.2 mg/day. PTC was instituted at 0.1 mg up to 4 times a day as needed. Patient tolerated procedure well with no complications. Plan and Disposition:: We will follow-up with him in 2 weeks. Will reevaluate his symptoms at that time.
[2020-10-11 11:11] VITALS: BP 140/50; PULSE 74; RESP 18; TEMP 36.4; O2SAT 97; BMI 24.3
== END ==
PROVIDERS: PCP Emergency Medicine; Visit Provider Anesthesiology
DX: M51.16 Intervertebral disc disorders with radiculopathy, lumbar region (principal); R60.0 Localized edema; L03.119 Cellulitis of unspecified part of limb; E78.5 Hyperlipidemia, unspecified; M10.9 Gout, unspecified; I11.9 Hypertensive heart disease without heart failure; I34.0 Nonrheumatic mitral (valve) insufficiency; I35.8 Other nonrheumatic aortic valve disorders; Z88.8 Allergy status to other drugs, medicaments and biological substances
CPT/HCPCS: 62368

== ENCOUNTER → 2020-10-21 09:58 | Outpatient (POV) | payer MEDICARE, SELFPAY ==
[2020-10-21 10:12] VITALS: BP 133/78; PULSE 74; RESP 18; O2SAT 98; BMI 24.0
--- NOTE | 2020-10-21 10:18 | HMH.PMPROC ---
- Procedure Date: 10/21/20 Time: 10:18 Anesthesiologist:: Shakila Last APRN Complications:: None Pre-procedure Diagnosis:: Degenerative disc disease lumbar spine lumbar radiculopathy lower extremity edema with cellulitis, cancer Post-procedure Diagnosis:: Same Indications for Procedure:: Patient is a pleasant 80-year-old white male who presents today for intrathecal pain pump adjustment. He is currently on 1.2 mg a day of Dilaudid. Patient states that his pain is a 5 out of 10 he does not feel like it is helped much. Patient denies any side effects. We will increase him 30% today. Procedure Details:: Informed consent was obtained and the risk and benefits of the procedure were explained to the patient. The patient was taken to the procedure room where noninvasive monitoring was placed including noninvasive blood pressure cuff and pulse oximeter. Patient's pump was interrogated and reprogrammed. The infusion rate was increased to 1.6 mg of Dilaudid a day.. The patient tolerated the procedure well. Plan and Disposition:: We will see the patient back in 2 weeks reassess his symptoms at that time. He has been instructed to call the office if he has any issues prior to his next appointment. Dr. Evans has reviewed this note and agrees with this plan of care. This note was dictated using voice recognition software and may contain errors or omissions
== END ==
PROVIDERS: PCP Emergency Medicine; Visit Provider Clinical Nurse Specialist Family Health
DX: M51.16 Intervertebral disc disorders with radiculopathy, lumbar region (principal); Z45.1 Encounter for adjustment and management of infusion pump; R60.0 Localized edema; L03.119 Cellulitis of unspecified part of limb
CPT/HCPCS: 62368; 62370

== ENCOUNTER 2020-10-28 17:19 | Emergency (ER) | payer MEDICARE, SELFPAY ==
[2020-10-28] VITALS (7 sets, daily range): BP systolic 146–162; BP diastolic 42–70; PULSE 71–77; RESP 17–18; TEMP 36.7; O2SAT 97–99; BMI 24.5
[2020-10-28 18:03] LABS: Basophils % 0.2 % (0.1-2.0); Eosinophils # 0.2 K/mm3 (0.0-0.4); Eosinophils % 1.9 % (0.1-12.0); Lymphocytes # 0.5 K/mm3 (0.7-4.5); Lymphocytes % 6.1 % (10-50); Mean Corpuscular HGB Conc 31.9 g/dL (31.8-35.4); Mean Corpuscular Hemoglobin 29.4 pg (27.0-31.2); Mean Corpuscular Volume 92.1 fl (80-94); Mean Platelet Volume 7.7 fl (7.4-10.4); Monocytes # 0.5 K/mm3 (0.1-1.0); Monocytes % 5.5 % (1.7-9.3); Neutrophils # 7.3 K/mm3 (1.8-7.8); Neutrophils % 86.4 % (37.0-80.0); Platelet Count 258 K/mm3 (142-424); Red Blood Count 2.71 M/mm3 (4.60-6.20); Red Cell Distribution Width 19.5 % (11.5-17.5); White Blood Count 8.5 K/mm3 (4.8-10.8)
--- NOTE | 2020-10-28 18:10 | PC.NURSE ---
critical hgb and hct notified to MARGARITA PARRY at this time
[2020-10-28 18:12] LABS: Alanine Aminotransferase 8 U/L (12-78); Albumin Level 3.5 g/dl (3.5-5.0); Alkaline Phosphatase 97 U/L (38-126); Anion Gap 13.6 mEq/L (5-15); Aspartate Amino Transferase 21 U/L (17-59); Bilirubin,Total 0.3 mg/dl (0.2-1.3); Blood Urea Nitrogen 43 mg/dl (9-20); Calcium 9.1 mg/dl (8.4-10.2); Carbon Dioxide 23 mmol/L (22.0-30.0); Chloride 108 mmol/L (98-107); Creatinine Clearance Estimated 20 mL/min (50-200); Estimated Glomerular Filt Rate 20 ml/min (>60); GFR (African American) 25 ML/MIN (>60); Globulin 3.6 g/dL (1.3-3.2); Glucose 111 mg/dl (74-100); MANUAL DIFFERENTIAL MANUAL DIFFERENTIAL (MANUAL DIFF); Potassium 4.6 mmoL/L (3.5-5.1); Sodium 140 mmol/L (136-145); Total Protein,Serum 7.1 g/dl (6.3-8.2)
[2020-10-28 18:41] LABS: Lymphocytes % 4 % (10-50); Monocytes % 6 % (2-9); Neutrophils % 90 % (42-76); Total Cells Counted 100
[2020-10-28 18:42] LABS: Hypochromasia 2+; Macrocytosis 1+; Microcytosis 1+; Ovalocytes 1+; Platelet Estimate Normal
--- NOTE | 2020-10-28 19:30 | HMH.EDGENADL ---
ED Disposition Clinical Impression: Rectal pain, chronic Disposition: Home, Self-Care Condition on Discharge: Fair Instructions: DI for Chronic Pain -- Adult, How to Measure Pain-Adult Referrals: Rodolfo Chen MD [Primary Care Provider] - - Critical Care Critical Care Time: No Attestation: On 10/28/20, the high probability of a clinically significant, sudden or life threatening deterioration of the following system(s) required my full and direct attention, intervention and personal management. The time I documented below is in addition to time spent performing reported procedures but includes the following listed in this critical care notation. Medical Decision Making - Medical Records Medical records reviewed: Yes: I reviewed the patient's medical records. MR Comment: 80 year Old male here with a complaint of unbearable rectal pain secondary to rectal cancer he initially had rectal cancer in 2016 and was treated and it got better but it has returned now he is on several pain medications at home but he says his pain is not resolved he does have an appointment with cancer center in a few days. We have checked patient's labs and they all seem to be essentially within normal limits we have given him IV fluids and Dilaudid 2-1/2 mg patient does not want to be admitted he will be following up with his cancer doctor. And it shows essentially normal CBC with a hemoglobin of 8 and hematocrit of 25 CMP is essentially within normal limits patient has been given so far 1-1/2 mg of IV Dilaudid his pain still is not under reasonably well controlled so we are giving him further Dilaudid we will also start him on oxygen and IV fluids - Arturo Inquiry Pt receiving controlled substance: No Vital Signs: 10/28/20 17:25 10/28/20 18:30 10/28/20 19:01 Temperature 98.0 F Temperature Source Oral Pulse Rate 77 73 Pulse Rate [Right Radial] 77 Respiratory Rate 18 Blood Pressure 147/62 H 146/43 H Blood Pressure [Right Arm] 149/70 H Blood Pressure Mean 90 77 Blood Pressure Mean [Right Arm] 96 Blood Pressure Source [Right Arm] Automatic Cuff Blood Pressure Position [Right Arm] Sitting 02 Sat by Pulse Oximetry 99 99 Oxygen Delivery Method Room Air Room Air 10/28/20 19:30 10/28/20 20:01 10/28/20 20:30 Temperature Temperature Source Pulse Rate 71 75 72 Pulse Rate [Right Radial] Respiratory Rate Blood Pressure 147/42 H 155/65 H 162/52 H Blood Pressure [Right Arm] Blood Pressure Mean 77 95 89 Blood Pressure Mean [Right Arm] Blood Pressure Source [Right Arm] Blood Pressure Position [Right Arm] 02 Sat by Pulse Oximetry 97 98 Oxygen Delivery Method Room Air Room Air - Lab Data Lab results reviewed: Yes: I reviewed the patient's lab results. Lab Results 10/28/20 17:55: WBC 8.5, RBC 2.71 L, Hgb 8.0 L, Hct 25.0 L, MCV 92.1, MCH 29.4, MCHC 31.9, RDW 19.5 H, Plt Count 258, MPV 7.7, Neut % (Auto) 86.4 H, Lymph % (Auto) 6.1 L, [place] % (Auto) 5.5, Eos % (Auto) 1.9, Baso % (Auto) 0.2, Neut # (Auto) 7.3, Lymph # (Auto) 0.5 L, [place] # (Auto) 0.5, Eos # (Auto) 0.2, Baso # (Auto) 0.0, Total Counted 100, Neutrophils % (Manual) 90 H, Lymphocytes % (Manual) 4 L, Monocytes % (Manual) 6, Platelet Estimate Normal, Hypochromasia 2+, Microcytosis 1+, Macrocytosis 1+, Ovalocytes 1+ 10/28/20 17:55: Sodium 140, Potassium 4.6, Chloride 108 H, Carbon Dioxide 23, Anion Gap 13.6, BUN 43 H, Creatinine 3.00 H, Estimated Creat Clear 20, Estimated GFR 20 L, Est GFR ( Amer) 25 L, Glucose 111 H, Calcium 9.1, Total Bilirubin 0.3, AST 21, ALT 8 L, Alkaline Phosphatase 97, Total Protein 7.1, Albumin 3.5, Globulin 3.6 H, Albumin/Globulin Ratio 1.0 L Result diagrams: 10/28/20 17:55 10/28/20 17:55 Orders (Tests/Meds): ED MEDICATIONS Generic Name Dose Route Start Last Admin Trade Name Freq PRN Reason Stop Dose Admin Sodium Chloride 1,000 mls @ 125 mls/hr 10/28/20 19:30 10/28/20 19:48 Sod Chlor 0
--- NOTE | 2020-10-28 20:05 | PC.NURSE ---
Dr. thomas with pt
== END 2020-10-28 21:11 | disposition home or self-care (01) ==
PROVIDERS: Emergency Provider Emergency Medicine; PCP Emergency Medicine
DX: C20 Malignant neoplasm of rectum (principal); Z85.040 Personal history of malignant carcinoid tumor of rectum; I48.91 Unspecified atrial fibrillation; I50.9 Heart failure, unspecified; F41.9 Anxiety disorder, unspecified; I10 Essential (primary) hypertension; I25.10 Atherosclerotic heart disease of native coronary artery without angina pectoris; E78.5 Hyperlipidemia, unspecified; Z79.899 Other long term (current) drug therapy
CPT/HCPCS: 80053; 85007; 85025; 96365; 96375; 96376; 99282; J2405

== ENCOUNTER 2020-10-30 07:16 | Emergency (ER) | payer MEDICARE, SELFPAY ==
[2020-10-30] VITALS (16 sets, daily range): BP systolic 114–166; BP diastolic 50–82; PULSE 62–78; RESP 16–18; TEMP 36.6–36.7; O2SAT 94–99; BMI 22.0
[2020-10-30 07:51] LABS: Alanine Aminotransferase 9 U/L (12-78); Albumin Level 3.4 g/dl (3.5-5.0); Alkaline Phosphatase 93 U/L (38-126); Aspartate Amino Transferase 21 U/L (17-59); Bilirubin,Total 0.4 mg/dl (0.2-1.3); Blood Urea Nitrogen 55 mg/dl (9-20); Carbon Dioxide 20 mmol/L (22.0-30.0); Chloride 108 mmol/L (98-107); Creatinine Clearance Estimated 13 mL/min (50-200); Estimated Glomerular Filt Rate 13 ml/min (>60); GFR (African American) 15 ML/MIN (>60); Globulin 3.5 g/dL (1.3-3.2); Glucose 97 mg/dl (74-100); Sodium 141 mmol/L (136-145); Total Protein,Serum 6.9 g/dl (6.3-8.2)
--- NOTE | 2020-10-30 08:03 | HMH.EDGENADL ---
ED Disposition Clinical Impression: Subdural hygroma, Rectal cancer Anemia Qualifiers: Anemia type: due to chronic kidney disease Chronic kidney disease stage: unspecified stage Qualified Code(s): N18.9 - Chronic kidney disease, unspecified Acute on chronic kidney failure Qualifiers: Acute renal failure type: unspecified Chronic kidney disease stage: unspecified stage Qualified Code(s): N17.9 - Acute kidney failure, unspecified Disposition: Xfer Short-Term Hosp Condition on Discharge: Fair Instructions: DI for Low Back Pain Referrals: Rodolfo Chen MD [Primary Care Provider] - Forms: Transfer Record - ED - Critical Care Critical Care Time: Yes Attestation: On 10/30/20, the high probability of a clinically significant, sudden or life threatening deterioration of the following system(s) required my full and direct attention, intervention and personal management. The time I documented below is in addition to time spent performing reported procedures but includes the following listed in this critical care notation. Total Critical Care Time: 40 Vital system(s) involved:: Circulatory Failure, Renal Failure My critical care processes included: Assessment & monitoring of V/S, Initial and Re-exams, Data Review/Interpretation, Coordinating Care, Medication Orders and management, Documentation Medical Decision Making - Medical Records Medical records reviewed: Yes: I reviewed the patient's medical records. MR Comment: Reviewed [facility] portal, admission 09/28/2020 through 10/03/2020. The patient had been admitted here and was transferred from this facility to [facility]. I also reviewed oncology clinic note 10/08/2020. Reviewed discharge summary from this facility 09/28/2020. Reviewed emergency department visit record 10/28/2020. Patient declined admission at that time. - Arturo Inquiry Pt receiving controlled substance: Yes Arturo was queried for this patient: Yes Risks and benefits of using a controlled substance: were not discussed with pt by me Vital Signs: 10/30/20 07:17 10/30/20 08:01 10/30/20 08:41 Temperature 98 F Temperature Source Oral Pulse Rate 62 75 Pulse Rate [Radial] 71 Respiratory Rate 16 18 TAR Vitals Timing Blood Pressure 143/50 H 161/71 H Blood Pressure [Right Arm] 141/59 H Blood Pressure Mean 69 90 Blood Pressure Mean [Right Arm] 86 Blood Pressure Position Blood Pressure Position [Right Arm] Sitting 02 Sat by Pulse Oximetry 98 99 99 Oxygen Delivery Method Room Air 10/30/20 09:00 10/30/20 09:30 10/30/20 10:01 Temperature Temperature Source Pulse Rate 72 72 Pulse Rate [Radial] Respiratory Rate 16 16 18 TAR Vitals Timing Blood Pressure 150/61 H 155/70 H 114/72 Blood Pressure [Right Arm] Blood Pressure Mean 90 98 86 Blood Pressure Mean [Right Arm] Blood Pressure Position Blood Pressure Position [Right Arm] 02 Sat by Pulse Oximetry 99 98 98 Oxygen Delivery Method 10/30/20 10:31 10/30/20 10:37 10/30/20 10:42 Temperature 97.9 F Temperature Source Oral Pulse Rate 68 75 73 Pulse Rate [Radial] Respiratory Rate 16 16 16 TAR Vitals Timing Pre-Blood Vitals Blood Pressure 136/59 L 136/59 L 160/68 H Blood Pressure [Right Arm] Blood Pressure Mean 84 84 90 Blood Pressure Mean [Right Arm] Blood Pressure Position Sitting Blood Pressure Position [Right Arm] 02 Sat by Pulse Oximetry 96 98 97 Oxygen Delivery Method 10/30/20 10:46 10/30/20 10:51 10/30/20 10:56 Temperature 97.9 F 97.9 F 98.0 F Temperature Source Oral Pulse Rate 67 69 72 Pulse Rate [Radial] Respiratory Rate 16 16 16 TAR Vitals Timing 15 Minute 15 Minute Blood Pressure 153/66 H 160/74 H 165/71 H Blood Pressure [Right Arm] Blood Pressure Mean 95 102 102 Blood Pressure Mean [Right Arm] Blood Pressure Position Sitting Blood Pressure Position [Right Arm] 02 Sat by Pulse Oximetry 98 98 97 Oxygen Delivery Method
[2020-10-30 08:04] LABS: Microscopic, Urine URINE MICROSCOPIC (MICROSCOPIC)
[2020-10-30 08:07] LABS: Appearance,Urine CLOUDY (Clear); Bilirubin,Urine 1+ (Negative); Blood, Urine 3+ (Negative); Color,Urine AMBER (Yellow); Glucose,Urine (UA) Negative (Negative); Ketones,Urine Negative (Negative); Leukocyte Esterase,Urine 1+ (Negative); Nitrate,Urine Negative (Negative); PH,Urine 6.5 (5.0-8.5); Protein,Urine 3+ (Negative); Urobilinogen,Urine 0.2 EU/dl (0.2)
[2020-10-30 08:10] LABS: Basophils % 0.4 % (0.1-2.0); Eosinophils # 0.1 K/mm3 (0.0-0.4); Eosinophils % 1.6 % (0.1-12.0); Hematocrit 24.4 % (42.0-52.0); Lymphocytes # 0.5 K/mm3 (0.7-4.5); Lymphocytes % 7.5 % (10-50); Mean Corpuscular HGB Conc 30.9 g/dL (31.8-35.4); Mean Corpuscular Hemoglobin 28.5 pg (27.0-31.2); Mean Corpuscular Volume 92.1 fl (80-94); Mean Platelet Volume 7.6 fl (7.4-10.4); Monocytes # 0.4 K/mm3 (0.1-1.0); Monocytes % 5.9 % (1.7-9.3); Neutrophils # 5.7 K/mm3 (1.8-7.8); Neutrophils % 84.6 % (37.0-80.0); Platelet Count 237 K/mm3 (142-424); Red Blood Count 2.65 M/mm3 (4.60-6.20); Red Cell Distribution Width 19.4 % (11.5-17.5); White Blood Count 6.7 K/mm3 (4.8-10.8)
[2020-10-30 08:15] LABS: Hemoglobin 7.6 g/dL (14.1-18.0)
--- NOTE | 2020-10-30 08:17 | CT_ITS ---
PROCEDURE: CT HEAD/BRAIN WO CON CLINICAL INDICATION: right leg and arm heaviness COMPARISON: CT CT HEAD/BRAIN WO CON from 04/27/[address] HEAD/BRAIN WO CON from 09/27/2020 TECHNIQUE: Axial images obtained. All CT scans at the facility use one or more dose reduction, viz: automated exposure control, ma/kV adjustment per patient size (including targeted exams where dose is matched to indication, i.e. head), or iterative reconstruction technique. FINDINGS: No midline shift, mass effect, or intracranial hemorrhage is evident.. There is generalized atrophy. There is mild prominence of the subdural space in the frontal, parietal and parieto-occipital regions. 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 No definite acute intracranial hemorrhage is apparent. There is intracranial vascular calcification. The calvarium has an unremarkable appearance. No mastoid effusion. No sinus air-fluid level. IMPRESSION: Interval development of mild prominence of the subdural space in the frontal parietal and parietal occipital region suggesting subdural hygromas. The subdural space in the parietal occipital region measures approximately 9 mm on both sides. No acute intracranial hemorrhage is identified. Dictated by: Praveen Craig MD 10/30/2020 08:49 Praveen Craig MD in [facility] 10/30/2020 08:49
--- NOTE | 2020-10-30 08:20 | PC.NURSE ---
MD aware of pt hemoglobin and creatinine.
--- NOTE | 2020-10-30 08:23 | PC.NURSE ---
Pt to radiology
[2020-10-30 08:26] LABS: Bacteria,Urine Trace /lpf; RBC,Urine 20-50 #/hpf (0-3)
--- NOTE | 2020-10-30 08:26 | XR_ITS ---
PROCEDURE: XR CHEST PORTABLE CLINICAL HISTORY: weak COMPARISON: CT CT CHEST W CON from 04/18/2019 CR XR CHEST PORTABLE from 09/28/2020 FINDINGS: The cardiomediastinal silhouette and pulmonary vascularity are within normal limits. The lungs are clear without infiltrates, suspicious nodules, or pleural effusions. Old left humeral neck fracture with degenerative changes of the shoulders. IMPRESSION: No acute findings. Dictated by: Praveen Craig MD 10/30/2020 08:42 Praveen Craig MD in [facility] 10/30/2020 08:42
--- NOTE | 2020-10-30 09:00 | ECG_ITS ---
APPROVED REPORT Exam: Resting ECG HR:64 bpm ECG Measurements Heart Rate 64 AXES AL 142 P 53 QRSd 88 QRS -11 QT 422 T 47 QTc 435 Conclusion Normal sinus rhythm with sinus arrhythmia Normal ECG Electronically signed by : Gonsalo Bray, 10/30/2020 16:56:52
[2020-10-30 09:17] LABS: Troponin I 0.01 ng/ml (0.00-0.034)
[2020-10-30 09:23] LABS: Lactic Acid 0.9 mmol/L (0.7-2.1)
--- NOTE | 2020-10-30 09:37 | PC.NURSE ---
placed call to amos Gallardo voicemail left message
--- NOTE | 2020-10-30 10:05 | PC.NURSE ---
called logistics at [facility], she is making calls to pt and will call back.
--- NOTE | 2020-10-30 11:05 | PC.NURSE ---
pt logistics at [facility] called they stated they had paged the dr 2 times, and when he calls they will direct his call to us
--- NOTE | 2020-10-30 11:11 | PC.NURSE ---
Dr Jennings speaking with Dr Ngo
--- NOTE | 2020-10-30 12:33 | PC.NURSE ---
report called to [facility]
[2020-10-30 13:09] LABS: Troponin I < 0.01 ng/ml (0.00-0.034)
== END 2020-10-30 13:34 | disposition short-term general hospital (02) ==
PROVIDERS: Emergency Provider Emergency Medicine; PCP Emergency Medicine
DX: G96.08 Other cranial cerebrospinal fluid leak (principal); C20 Malignant neoplasm of rectum; N18.9 Chronic kidney disease, unspecified; N17.9 Acute kidney failure, unspecified; I48.91 Unspecified atrial fibrillation; I25.10 Atherosclerotic heart disease of native coronary artery without angina pectoris; Z85.048 Personal history of other malignant neoplasm of rectum, rectosigmoid junction, and anus; R33.8 Other retention of urine; E78.5 Hyperlipidemia, unspecified; I10 Essential (primary) hypertension; I25.2 Old myocardial infarction; F41.9 Anxiety disorder, unspecified; Z79.899 Other long term (current) drug therapy; Z20.822 Contact with and (suspected) exposure to COVID-19
CPT/HCPCS: 36415; 70450; 71045; 80053; 81001; 83605; 84484; 85025; 86850; 87040; 87086; 87088; 87186; 93005; 96365; 96375; 96376; 99284; P9016; U0003